=== PATIENT | female | born 1940 | race Caucasian/White ===

== ENCOUNTER 2021-09-16 15:24 | Inpatient (IN) | payer MEDICARE, OTHER ==
--- OUTSIDE RECORDS SUMMARY | 2021-09-16 15:27 | XMS REPORT | Continuity of Care Document ---
:1940 Author Organization [facility] t Address [address] [place] [address] Care Team Providers Name Role Phone UNKNOWN Primary Care Physician Unavailable FERNANDEZ_Kim Attending Clinician Unavailable Wendy Presley Attending Clinician [phone] Sosa Attending Clinician Unavailable Francoise Attending Clinician Unavailable Pedro Attending Clinician Unavailable MANAS Attending Clinician Unavailable ALEX Attending Clinician Unavailable FERNANDEZ_Kim Admitting Clinician Unavailable Nelson_Cassie Admitting Clinician Unavailable Francoise Admitting Clinician Unavailable Katrin_Felicity Admitting Clinician Unavailable MANAS Admitting Clinician Unavailable Payers Payer Name Policy Type Policy Number Effective Date Expiration Date Adele moore [facility] - [id number] [employer] (MEDICARE REPLACEMENT/ADVANTAGE - PPO) [facility] [id number] (MEDICARE REPLACEMENT/ADVANTAGE - PPO) [employer] (MEDICARE [id number] REPLACEMENT/ADVANTAGE - PPO) Problems Condition Condition Condition Status Onset Resolution Last Treating Co mments Source Name Details Category Date Date Treatment Clinician Date Essential Essential Problem Active [facility] hypertensi Hypertensi 4-05 da on on 00:00: Medical 00 Group Congestive Congestive Problem Active [facility] heart Heart 4-05 da failure Failure 00:00: Medical Group Arthralgia Arthralgia Problem Active [facility] of the of the 08-20 da ankle Ankle 00:00: Medical and/or And/or 00 Group foot Foot Ankle pain Ankle Pain Problem Active [facility] 2-26 da 00:00: Medical 00 Group Long-term Long-term Problem Active 2016-05 [facility] drug Drug 2-12 da therapy Therapy 00:00: Medical 00 Group Screening Screening Problem Active [facility] for for 1-30 da malignant Malignant 00:00: Medi carmen neoplasm Neoplasm 00 Group of breast of Breast Dermatophy Dermatophy Problem Active [facility] tosis tosis [facility] Hypothyroi Hypothyroi Problem Active [facility] dism dism [facility] Hyperlipid Hyperlipid Problem Active [facility] emia emia [facility] Cellulitis Cellulitis Problem Active [facility] of of da external External Medica l ear Ear Group Sinus Sinus Problem Active [facility] tachycardi Tachycardi da a a Medical Group 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 Medical Group Gastroesop Gastroesop Problem Active [facility] hageal hageal da reflux Reflux Medical disease Disease Group Infection Infection Problem Active [facility] of skin of Skin da and/or And/or Medical subcutaneo Subcutaneo Gr oup us tissue us Tissue Ankle Ankle Problem Active [facility] edema [facility]ema [facility] Foot pain Foot Pain Problem Active [facility] Numbness Numbness Problem Active [facility] of foot of Foot [facility] Eruption Eruption Problem Active [facility] Diarrhea Diarrhea Problem Active [facility] Macrocytos Macrocytos Problem Active [facility] is is [facility] Mammograph Mammograph Problem Active [facility] y abnormal y Abnormal [facility] Abnormal Abnormal Problem Active [facility] cervical Cervical da Papanicola Papanicola Me dical ou smear ou Smear Group Arthralgia Arthralgia Problem Active [facility] of right of right ity of ankle ankle [place] [facility] Right Right Problem Active [facility] ankle ankle ity of swelling swelling [place] [facility] Closed Closed Problem Active [facility] Salter-Rick Salter-Rick it y of ris type I ris type I [place] [facility] fracture fracture ans of 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, nonunion, subsequent subsequent encounter encounter Allergies, Adverse Reactions, Alerts Allergy Allergy Status Severity Reaction(s) Onset Inactive Treating Comm ents Source Name Type Date Date Clinician Sulfa DA Active [facility] (Sulfona 1-28 [place] [facility] 00:00: Orthope Antibiot 00 dic ics) [facility]osp[facility] Sulfa DA Active [facility] (Sulfona 1-23 [place] [facility] 00:00: Orthope Antibiot 00 dic ics) [facility]ospita [facility] Sulfa DA Active [facility] (Sulfona 6-07 [place] [facility] 00:00: Orthope Antibiot 00 dic ics) Hospita l SULFA Allergy Active Moderate Rash [facility] (SULFONA to to severe da MIDE substan Medical ANTIBIOT e Group ICS) Social History Smoking Status Start Date Stop Date Source Never Smoker [facility] Medications Ordered Filled Start Stop Current Ordering Indication Dosage Frequency Signature Comments Components Source Medication Medication Date Date Medication? Clinician (SIG) Name Name allopurinol allopurinol No allopurino [facility] 300 mg 300 mg l 300 mg da tablet TAKE tablet TAKE tablet Medical 1 TABLET BY 1 TABLET BY TAKE 1 Group MOUTH ONCE MOUTH ONCE TABLET BY DAILY DAILY MOUTH ONCE DAILY aspirin 80 aspirin 80 No aspirin 80 [facility] mg tablet mg tablet mg tablet da Take by Take by Take by Medica l oral route. oral route. oral G roup route. atorvastati atorvastati No atorvastat [facility] n 40 mg n 40 mg in 40 mg da tablet TAKE tablet TAKE tablet Medical 1 TABLET BY 1 TABLET BY TAKE 1 Group MOUTH EVERY MOUTH EVERY TABLET BY DAY DAY MOUTH EVERY DAY diclofenac diclofenac No diclofenac [facility] 1 % topical 1 % topical 1 % d a gel APPLY gel APPLY topical Me dical 4GRAM TO 4GRAM TO gel APPLY Gr oup THE THE 4GRAM TO AFFECTED AFFECTED THE AREA(ankle AREA(ankle AFFECTED and foot and foot AREA(ankle )BY TOPICAL )BY TOPICAL and foot ROUTE 4 ROUTE 4 )BY TIMES PER TIMES PER TOPICAL DAY DAY ROUTE 4 TIMES PER DAY famotidine famotidine No famotidine [facility] 20 mg 20 mg 20 mg da tablet TAKE tablet TAKE tablet Medical 1 TABLET BY 1 TABLET BY TAKE 1 Group MOUTH TWICE MOUTH TWICE TABLET BY DAILY DAILY MOUTH TWICE DAILY hydrochloro hydrochloro No hydrochlor [facility] thiazide 25 thiazide 25 othiazide da mg tablet mg tablet 25 mg Medi carmen tablet Group levothyroxi levothyroxi No levothyrox [facility] ne 75 mcg ne 75 mcg ine 75 mcg da tablet TAKE tablet TAKE tablet Medical 1 TABLET BY 1 TABLET BY TAKE 1 Group MOUTH EVERY MOUTH EVERY TABLET BY DAY DAY MOUTH EVERY DAY losartan losartan No losartan [facility] 100 mg 100 mg 100 mg da tablet tablet tablet Medical Group meclizine meclizine No meclizine [facility] 25 mg 25 mg 25 mg da tablet tablet tablet Medical Group nebivolol nebivolol No nebivolol [facility] 10 mg 10 mg 10 mg da tablet tablet tablet Medical Group olmesartan olmesartan No olmesartan [facility] 20 mg 20 mg 20 mg da tablet tablet tablet Medical Group tramadol 50 tramadol 50 No tramadol [facility] mg tablet mg tablet 50 mg da Take 1-2 Take 1-2 tablet Medic al tabs every tabs every Take 1-2 Group 6 hoursprn 6 hoursprn tabs every for pain for pain 6 hoursprn for pain Xarelto 20 Xarelto 20 No Xarelto 20 [facility] mg tablet mg tablet mg tablet da Medical Group Immunizations Ordered Immunization Filled Immunization Date Status Commen ts Source Name Name Tdap Tdap 2016-11-10 Completed Sina 15:45:11 Medical Group Vital Signs Vital Name Observation Time Observation Value Comments Source BP Diastolic 2021-02-28 00:00:00 75 mm[Hg] [facility] Height 2021-02-28 00:00:00 63 [in_i] [facility] BMI (Body Mass 2021-02-28 00:00:00 30.8 kg/m2 [facility] Index) Group BP Systolic 2021-02-28 00:00:00 163 mm[Hg] [facility] Body Weight 2021-02-28 00:00:00 173.6 [lb_av] [facility] BP Diastolic 2021-01-23 00:00:00 77 mm[Hg] [facility] Height 2021-01-23 00:00:00 63 [in_i] [facility] BMI (Body Mass 2021-01-23 00:00:00 30.8 kg/m2 [facility] Index) Group BP Systolic 2021-01-23 00:00:00 169 mm[Hg] [facility] Body Weight 2021-01-23 00:00:00 173.9 [lb_av] [facility] BP Diastolic 2019-12-16 00:00:00 71 mm[Hg] [facility] Height 2019-12-16 00:00:00 63 [in_i] [facility] BP Systolic 2019-12-16 00:00:00 154 mm[Hg] [facility] BP Diastolic 2019-12-15 00:00:00 70 mm[Hg] [facility] Height 2019-12-15 00:00:00 63 [in_i] [facility] BMI (Body Mass 2019-12-15 00:00:00 30.8 kg/m2 [facility] Index) Group BP Systolic 2019-12-15 00:00:00 145 mm[Hg] [facility] Body Weight 2019-12-15 00:00:00 2784 [oz_av] [facility] Procedures Procedure Date / Time Performed Performing Clinician Sourc e XR, elbow, 2 view 2019-12-16 00:00:00 [facility] Cataract [facility] Cholecystectomy [facility] Encounters Start End Encounter Admission Attending Care Care Encounter Source Date/Time Date/Time Type Type Clinicians Facility Department ID 2021-08-28 2021-08-28 Outpatient KEFFER_A [facility] [id number] [place] 01:08:00 01:08:00 [facility] 2021-08-28 2021-08-28 Outpatient Silvia Presley [facility] [id number] 00:00:00 00:00:00 Wendy [id number] 2021-07-29 2021-07-29 Outpatient [facility] [id number] [place] 04:29:00 04:29:00 314 [facility] 2021-07-29 2021-07-29 Outpatient Silvia Presley [facility] [id number] 00:00:00 00:00:00 Wendy [id number] 2021-05-30 2021-05-30 Outpatient [facility]A [facility] [id number] [place] 04:25:00 04:25:00 113 [facility] 2021-05-30 2021-05-30 Outpatient Silvia Presley [facility] [id number] 00:00:00 00:00:00 Wendy [id number] 2021-05-15 2021-05-15 Outpatient [facility]A [facility] [id number] [place] 12:01:00 12:01:00 229 [facility] 2021-05-15 2021-05-15 Outpatient Silvia Presley [facility] [id number] 00:00:00 00:00:00 Wendy [id number] 2021-04-18 2021-04-18 Outpatient [facility]A [facility] [id number] [place] 11:21:00 11:21:00 202 [facility] 2021-04-17 2021-04-17 Outpatient KEDL_Kim [facility] [id number] [place] 03:55:00 03:55:00 201 [facility] 2021-04-17 2021-04-17 Outpatient FernandezSilvia [facility] [id number] 00:00:00 00:00:00 Wendy [id number] 2021-02-28 2021-02-28 [facility] [id number] [facility] 11:56:00 11:56:00 1014 [facility] 2021-02-28 2021-02-28 RHEA Gunn [place] - [id number] [facility] 00:00:00 00:00:00 : Barb [facility] [address], [facility], Otolaryngol [place]gy-2NDNATURE [address] , Ph. 2021-02-27 2021-02-27 [facility] [id number] [place] 12:31:00 12:31:00 1013 [facility] 2021-02-21 2021-02-21 [facility] [id number] [place] 02:15:00 02:15:00 1007 [facility] 2021-01-23 2021-01-23 [place] [id number] [place] 03:45:00 03:45:00 0908 [facility] 2021-01-23 2021-01-23 [facility] [id number] [place] 03:45:00 03:45:00 0909 [facility] 2021-01-23 2021-01-23 RHEA Gunn [place] - [id number] [facility] 00:00:00 00:00:00 : Barb [facility] [address], [facility], [place] [address] , Ph. 2020-12-26 2020-12-26 [facility] [id number] [place] 10:19:00 10:19:00 0811 [facility] 2020-12-26 2020-12-26 [place] Yan[place] [id number] [facility] 10:19:00 10:19:00 0820 [facility] 2020-12-26 2020-12-26 Outpatient Yan_W MMG MMG [id number] [place] 10:19:00 10:19:00 0907 [facility] 2020-12-24 2020-12-24 Outpatient KEDL_Kim [facility] [id number] [place] 05:10:00 05:10:00 809 [facility] 2020-12-24 2020-12-24 Outpatient Silvia Presley [facility] [id number] 00:00:00 00:00:00 Wendy [id number] 2020-06-21 2020-06-21 Outpatient RUY [facility] [id number] [place] 12:56:00 12:56:00 204 [facility] 2020-06-21 2020-06-21 Outpatient Silvia Presley [facility] [id number] 00:00:00 00:00:00 Wendy [id number] 2020-04-04 2020-04-04 Outpatient Francoise [facility] [id number] [place] 02:20:00 02:20:00 [facility]8 [facility] 2020-01-12 2020-01-12 Outpatient Francoise [facility] [id number] [facility] 10:10:00 10:10:00 0827 [facility] 2019-12-31 2019-12-31 Outpatient Hawkins_M [facility] 10:51:00 10:51:00 0815 [facility] 2019-12-24 2019-12-24 Outpatient Hawkins_M [facility] MMG [place] 11:56:00 11:56:00 [id number] [facility] 2019-12-24 2019-12-24 Outpatient Hawkins_M [facility]G [place] 11:56:00 11:56:00 0810 [facility] 2019-12-24 2019-12-24 Outpatient Hawkins_M [facility] [place] 11:56:00 11:56:00 0811 [facility] 2019-12-24 2019-12-24 Outpatient Hawkins_M [facility] [place] 11:56:00 11:56:00 0812 Medical Group 2019-12-24 2019-12-24 Outpatient Hawkins_M [facility] [place] 11:56:00 11:56:00 0813 Medical Group 2019-12-20 2019-12-20 Outpatient Hawkins_M [facility] [place] 11:20:00 11:20:00 0804 Medical Group 2019-12-20 2019-12-20 Outpatient Hawkins_M [facility] [place] 11:20:00 11:20:00 0805 Medical Group 2019-12-19 2019-12-19 Outpatient Hawkins_M [facility] [place] 04:30:00 04:30:00 0803 [facility] Group 2019-12-16 2019-12-16 Outpatient Hawkins_M [facility] [place] 04:17:00 04:17:00 0731 Medical Group 2019-12-16 2019-12-16 Outpatient Hawkins_M [facility] [place] 04:17:00 04:17:00 0802 Medical Group 2019-12-16 2019-12-16 [place] [facility] [place] - [id number] [facility] 00:00:00 00:00:00 Alyx nevarez [place], Medical Medical PLASTIC SURGEON: [address] [address] , Ph. 2019-12-15 2019-12-15 Outpatient Hawkins_M [facility] [place] 12:53:00 12:53:00 0730 Medical Group 2019-12-15 2019-12-15 [facility] [place] - [id number] [facility] 00:00:00 00:00:00 Alyx Trujillo, Medical Medical PLASTIC SURGEON: [address] [address], [place] [address] , Ph. 2017-04-03 2017-04-03 [id number] 19:53:00 19:53:00 [facility] 2017-03-04 2017-03-04 Appointmen ALBERT JOHNSON UTP [id number] Univers 13:30:00 13:30:00 jordyn Martinez M.D. [place] WILLIAM, Physici M.D. ans Results Test Description Test Time Test Comments Results Result Comments Source CBC W Auto Differential panel - Blood 2019-12-16 04:34:00 Test Item Value Reference Range Interpretation Comme nts white blood count (test code = white blood count) 7.0 K/uL 4.0- 11.5 red blood count (test code = red blood count) 4.03 M/uL 3.80-5.2 0 hemoglobin (test code = hemoglobin) 13.5 g/dL 10.5-15.7 hematocrit (test code = hematocrit) 40.8 % 34.0-50.0 MCV [Entitic volume] (test code = 67498-4) 101.2 fL 86-100 H mean corpuscular hemoglobin (test code = mean corpuscular 33.5 pg 26.2-33.4 H hemoglobin) mean corpuscular HGB conc (test code = mean corpuscular HGB 33.1 g/ dL 30-34 conc) red cell distribution width (test code = red cell 13.5 % 12.0 -15.5 distribution width) platelet count (test code = platelet count) 186 K/uL 165-450 mean platelet volume (test code = mean platelet volume) 9.5 fL 9.4-12.6 Segmented neutrophils/100 leukocytes in Blood (test code = 57.0 % 44.4-80.1 87153-6) Immature granulocytes [#/volume] in Blood (test code = 0.0 K/uL 0.0-0.03 63278-6) lymphocyte% (test code = lymphocyte%) 31.8 % 10.0-50.0 mono % (test code = mono %) 7.6 % 3.6-12.0 eos % (test code = eos %) 2.7 % 0.0-5.4 Basophils/100 leukocytes in Unspecified specimen (test code 0.6 % 0.1-1.2 = 50649-7) Band form neutrophils [#/volume] in Blood (test code = 3.98 K/uL 1.56-6.13 77961-8) Lymphocytes [#/volume] in Unspecified specimen by Automated 2.2 K/u L 1.18-3.74 count (test code = 27468-2) mono # (test code = mono #) 0.53 K/uL 0.24-0.86 eos # (test code = eos #) 0.19 K/uL 0.04-0.36 basophil # (test code = basophil #) 0.04 K/uL 0.01-0.08 NRBC% (test code = NRBC%) 0 /100 WBC 0-0.2 NRBC# (test code = NRBC#) 0 K/uL [facility] panel, method unspecified - [id number] 04:34:00NeutrophilsBandLymphocyteMonocyteEosinophilPlatelet EstimatePlatelet MorphologyUmmc GrenadaBacteria identified in Wound by Culture 2019-12-16 04:34:00ResultsUmmc Grenada- CT LOWER EXTRM W/O C RT 2018-12-09 11:36:00 Patient Name: PATTI SHAW Unit No: [id number] EXAMS: CPT CODE: [id number] CT L[place]TRM W/[place] [address] TECHNIQUE: Volumetric CT data of the right ankle was obtained without use of intravenous contrast. Images were then viewed in the axial, coronal and sagittal planes. CT radiation dose optimization is achieved for this examination by the use of a CT protocol in accordance with ACR practice standards and adherence to apple peeler operator's recommendations. INDICATION: PAIN COMPARISON: CT dated 09/29/2017 FINDINGS: Interval postoperative changes of tibiotalar talocalcaneal arthrodesis demonstrated. There is marked collapse and partial absence of the talus. The vertical stem demonstrates treatprosthetic lucency measuring up to 3.5 mm (coronal image 137), concerning for loosening.The screws appear intact. No osseous fusion is visualized. Distal fibular resection. No other significant interval change. IMPRESSION: Interval postoperative changes of TTC arthrodesis without fusion. There is evidence of hardware loosening. at 1136 Reported and signed by: Kory De Leon M.D. CC: Zhao Cortes MD Technologist: Donald Melendez,RT(R) CTDI: DLP: Trnscrpt: 12/09/2018 (1131) t.SDR.SLJ [facility] NAME: PATTI SHAW [address] [facility] PHYS: MALI Ordaz Zhao Cortes : 1940 AGE: 78 SEX: F [place] [address] LOC: Y.RAD PHONE #: [phone] EXAM DATE: 12/08/2018 STATUS: DEP CLI FAX #: [phone] RAD #: D/C DT PAGE 1 Signed Report Patient Name: PATTI SHAW Unit No: [id number] EXAMS: CPT CODE: [id number] CT LOWER EXTRM W/[place] [address] <Continued> Orig Print D/T: S: 12/09/2018 (1135) [facility] NAME: PATTI SHAW [address] [facility] PHYS: Zhao Gerard : 1940 AGE: 78 SEX: F [place] [address] LOC: Y.RAD PHONE #: [phone] EXAM DATE: 12/08/2018 STATUS: DEP CLI FAX #: [phone] RAD #: D/C DT PAGE 2 Signed ReportLipid [id number] 21:20:00 Test Item Value Reference Range Interpretation Comments Cholesterol (test 114 mg/dL 0-200 N code = CHOL) Triglycerides (test 110 mg/dL 9-200 N code = TRIG) HDL (test code = 43 mg/dL 50-60 L HDL) Chol/HDL (test code 2.7 Ratio 0.0-4.4 N = CHOLPHDL) LDL, Calculated 49 mg/dL 0-130 N (NOTE)RISK O F HEART (test code = LDLC) DISEASEPu blished by [place] Heart AssociationAnal yte Optim al Boderline Increased RiskC HOL <200 200-239 >240TRI G <150 150-199 >200HDL Male: >60 <40HDL Female: >60 <50 LDL < 100 130-15 9 >160 LDL NEAR OPTIMAL IS 100- 129 VLDL (test code = 22 mg/dL 5-40 N VLDL) LDL/HDL (test code = 1 LDLPHDL) D-Dimer, [id number] 21:29:00 Test Item Value Reference Range Interpretation Comments D-Dimer, Quant (test code = DDQNT) 1426 ng/mL 0-500 H [id number] 21:35:00 Test Item Value Reference Range Interpretation Comments NT ProBnp (test code = PBNP) 277 pg/mL 0-124 H
[2021-09-16] MEDS ORDERED: NA CHLORIDE 0.9% 500 ML ONE (17:33)
[2021-09-16] MEDS ORDERED: METOPROLOL TAR 25 MG TAB ONE (17:33)
[2021-09-16 17:36] LABS: Absolute Lymphocytes (CBC) 1.3 K/uL (0.7-4.9); Hematocrit 26.4 % (36.0-45.0); Lymphocytes % 22.7 % (15.3-44.8); MPV 8.3 fL (7.6-11.3)
[2021-09-16 17:41] LABS: Protime INR 1.28
[2021-09-16] MEDS ORDERED: PANTOPRAZOLE 40 MG INJ ONE (17:48)
[2021-09-16 18:04] LABS: Albumin 3.7 g/dL (3.4-5.0); Bilirubin Direct 0.1 mg/dL (0-0.2); Bilirubin Total 0.2 mg/dL (0.2-1.0); Magnesium 2.1 mg/dL (1.8-2.4); Potassium 4.1 mmol/L (3.5-5.1); Protein, Total 6.7 g/dL (6.4-8.2); Troponin High Sensitivity 13.8 pg/mL (<58.9)
--- NOTE | 2021-09-16 18:59 | RAD REPORT ---
EXAM DESCRIPTION: CT - Abdomen Pelvis W Contrast - 09/16/2021 6:26 pm CLINICAL HISTORY: Abdominal pain, acute, nonlocalized, history of IBS COMPARISON: No comparisons TECHNIQUE: Biphasic, helical CT imaging of the abdomen and pelvis was performed following 100 ml non -ionic IV contrast. No oral contrast administered. All CT scans are performed using dose optimization technique as appropriate and may include automated exposure control or mA/KV adjustment according to patient size. FINDINGS: No suspicious findings in the lung bases. The liver, spleen, and pancreas show no suspicious findings. Gallbladder and biliary tree are also wi thout suspicious finding. Symmetric renal function is seen with no hydronephrosis or suspicious renal mass. No pyelonephritis o r acute parenchymal process. No bladder abnormalities. No adrenal abnormalities. Uterus and ovaries s how no suspicious findings. No gastric dilatation or gastric wall thickening identified. Enhancement of the gastric howell is seen which could indicate a gastritis. No dilated large or small bowel. Descending and sigmoid diverticul osis present without diverticulitis. No colon mass or acute colon finding identifiable. No direct or indirect evidence for appendicitis. No free air, free fluid or inflammatory stranding. No hernia, ma ss or bulky lymphadenopathy. Degenerative disc and bone changes are present with no acute finding. IMPRESSION: Enhancement of the gastric howell present without dilatation or focal mass. Gastritis is possible and needs correlation with clinical presentation. Diverticulosis present without diverticulitis. No acute colon finding seen.
--- NOTE | 2021-09-16 19:04 | ER ---
Nurse's Notes [facility] Name: Cynthia Eric Age: 81 yrs Sex: Female : 1940 Arrival Date: 09/16/2021 Time: 15:27 Bed 4 Private MD: Diagnosis: GI Bleed/ Gastrointestinal hemorrhage, unspecified;Unspecified atrial fibrillation Presentation: 09/16 16:08 Chief complaint: Patient states: for the past 3 days has noticed bloody stools "but vg1 only in the morning" states stool is soft and black in color; denies ABD pain at this time but pain does occur during BM. Pt states has pictures of BM and sister of colon cancer at the age 35. Coronavirus screen: Vaccine status: Patient reports receiving the 2nd dose of the covid vaccine. Client denies travel out of the [place] in the last 14 days. Ebola Screen: Patient denies exposure to infectious person. Patient denies travel to an Ebola-affected area in the 21 days before illness onset. Initial Sepsis Screen: Does the patient meet any 2 criteria? No. Patient's initial sepsis screen is negative. Does the patient have a suspected source of infection? No. Patient's initial sepsis screen is negative. Risk Assessment: Do you want to hurt yourself or someone else? Patient reports no desire to harm self or others. Onset of symptoms was September 14, 2021. 16:08 Method Of Arrival: Wheelchair vg1 16:08 Acuity: HONEY 3 vg1 Triage Assessment: 16:11 General: Appears comfortable, Behavior is calm, cooperative. Pain: Denies pain. GI: vg1 Reports bloody stool. Historical: - Allergies: 16:11 Sulfa (Sulfonamide Antibiotics); vg1 - Home Meds: 16:23 Xarelto oral [Active]; Bystolic oral [Active]; losartan oral [Active]; jh6 Hydrochlorothiazide Oral [Active]; levothyroxine oral [Active]; Allopurinol Oral [Active]; - PMHx: 16:11 IBS; Hypothyroidism; Hypertensive disorder; Rheumatoid arthritis; vg1 - PSHx: 16:11 MATEO Knee; Stented artery; Cholecystectomy; vg1 - Immunization history:: Client reports receiving the 2nd dose of the Covid vaccine. - Social history:: Smoking status: Patient denies any tobacco usage or history of. Screenin:34 Abuse screen: Denies threats or abuse. Denies injuries from another. Nutritional jl7 screening: No deficits noted. Tuberculosis screening: No symptoms or risk factors identified. Fall Risk IV access (20 points). Total Schulz Fall Scale indicates No Risk (0-24 pts). Assessment: 17:00 General: Appears in no apparent distress. uncomfortable, Behavior is calm, cooperative, jl7 appropriate for age. Pain: Denies pain. Neuro: Chavez Agitation-Sedation Scale (RASS): 0 - Alert and Calm Level of Consciousness is awake, alert, obeys commands, Oriented to person, place, time, situation, Reports dizziness. Cardiovascular: Denies chest pain, palpitations, Patient's skin is warm and dry. Rhythm is atrial fibrillation with rapid ventricular response. Respiratory: Airway is patent Respiratory effort is even, unlabored, Respiratory pattern is regular, symmetrical. GI: Abdomen is round non-distended, Reports bloody stool. Derm: Skin is pink, warm \\T\\ dry. 17:30 Reassessment: ERP gave VO to hold metoprolol, reports pt stated taking her Bystolic jl7 this morning around 1000. 18:50 Reassessment: ERP gave VO to administer metoprolol as ordered. jl7 19:55 Reassessment: Patient appears in no apparent distress at this time. Patient and/or as6 family updated on plan of care and expected duration. Pain level reassessed. Vital Signs: 16:08 BP 103 / 78; Pulse 88; Resp 16; Temp 97.7; Pulse Ox 100% ; Weight 75.3 kg; Height 5 ft. vg1 2 in. (157.48 cm); Pain 0/10; 17:34 BP 103 / 59; Pulse 131; Resp 15; Pulse Ox 100% ; jl7 18:00 BP 118 / 83; Pulse 130; Resp 16; Pulse Ox 100% on R/A; jl7 18:51 BP 118 / 80; Pulse 142; Resp 17; Pulse Ox 100% ; jl7 19:55 BP 103 / 83; Pulse 131; Resp 24 S; Pulse Ox 100% on R/A; as6 16:08 Body Mass Index 30.36 (75.30 kg, 157.48 cm) vg1 ED Course: 15:27 Patient arrived in ED. ds1 15:33 Raphael Cook PA is PHCP. [facility] 15:33 David Portillo MD is Attending Physician. jmm 16:11 Triage completed. vg1 16:11 Arm band placed on. vg1 16:13 Patient has correct armband on for positive identification. Bed in low position. Call [facility] light in reach. Adult w/ patient. Pulse ox on. NIBP on. 16:14 Basic Metabolic Panel Sent. 5 16:14 CBC with Diff Sent. 5 16:14 LFT's Sent. 5 16:14 Magnesium Sent. 5 16:14 NT PRO-BNP Sent. 5 16:14 PT-INR Sent. 5 16:14 Troponin HS Sent. 5 16:14 Warm blanket given. 5 16:27 Nya Browne, RN is Primary Nurse. [facility] 17:15 Initial lab(s) drawn, by hi, sent to lab. Inserted saline lock: 20 gauge in right jl7 forearm, using aseptic technique. Blood collected. 17:20 EKG done, by ED staff, reviewed by David Portillo MD. [facility] 17:20 Placed in gown. [facility] 17:30 Served as a guitar technician during rectal exam. jl7 18:28 CT Abd/Pelvis - IV Contrast Only In Process Unspecified. EDMS 19:03 Ruben Sauer MD is Hospitalizing Provider. [facility] 19:38 Primary Nurse role handed off by Nya Browne, RN ld1 19:55 Zak Erickson, JAMES is Primary Nurse. as6 22:28 Patient admitted, IV remains in place. as6 Administered Medications: 17:32 Drug: NS 0.9% 500 ml Route: IV; Rate: bolus; Site: right forearm; jl7 22:27 Follow up: Response: No adverse reaction; IV Status: Completed infusion; IV Intake: as6 500ml 17:45 Drug: ProTONIX (pantoprazole) 40 mg Route: IVP; Site: right forearm; jl7 22:27 Follow up: Response: No adverse reaction as6 18:54 Drug: Metoprolol 25 mg Route: PO; jl7 22:27 Follow up: Response: No adverse reaction as6 Intake: 22:27 IV: 500ml; Total: 500ml. as6 Outcome: 19:04 Decision to Hospitalize by Provider. jmm 22:28 Admitted to Med/surg accompanied by tech, family with patient, via wheelchair, room as6 202, with chart, Report called to Latanya RAMIREZ 22:28 Condition: stable 22:28 Instructed on the need for admit. 22:28 Patient left the ED. as6 Signatures: Dispatcher [employer] EDMS Raphael Cook PA PA jmm Sanford, Demi ds1 Loree Terry [facility] Jose Luis Caraballo, RN RN jl7 Malaika Calles RN RN 1 Malinda Stroud RN RN ld1 Zak Erickson RN RN as6 Nya Browne RN RN jh6 Corrections: (The following items were deleted from the chart) 17:35 16:12 Inserted saline lock: 22 gauge in left antecubital area, using aseptic technique. 7 Blood collected. [facility] 17:35 16:12 Initial lab(s) drawn, by me, sent to lab. [facility]
--- NOTE | 2021-09-16 19:04 | EDPHYS ---
Physician Documentation [facility] [place], [place] Name: Cynthia Eric Age: 81 yrs Sex: Female : 1940 Arrival Date: 09/16/2021 Time: 15:27 Bed 4 Private MD: ED Physician David Portillo HPI: 09/16 15:54 This 81 yrs old Female presents to ER via Wheelchair with complaints of Bloody Stools, jmm Dizziness. 15:54 The patient presents to the emergency department with rectal bleeding. Onset: The jmm symptoms/episode began/occurred gradually, 2 day(s) ago. Abdominal pain: described as achy. Modifying factors: The symptoms are alleviated by nothing, the symptoms are aggravated by nothing. Associated signs and symptoms:. This is a 81 year old female with a history of htn, hypothyroidism, cad that presents to the ED with complaints of abdominal pain and rectal bleeding worsening over the past 2 days. Patient states this has occurred intermittently but has worsened recently. Complains of weakness, and lightheartedness. . Historical: - Allergies: 16:11 Sulfa (Sulfonamide Antibiotics); vg1 - Home Meds: 16:23 Xarelto oral [Active]; Bystolic oral [Active]; losartan oral [Active]; jh6 Hydrochlorothiazide Oral [Active]; levothyroxine oral [Active]; Allopurinol Oral [Active]; - PMHx: 16:11 IBS; Hypothyroidism; Hypertensive disorder; Rheumatoid arthritis; vg1 - PSHx: 16:11 MATEO Knee; Stented artery; Cholecystectomy; vg1 - Immunization history:: Client reports receiving the 2nd dose of the Covid vaccine. - Social history:: Smoking status: Patient denies any tobacco usage or history of. ROS: 15:54 Constitutional: Positive for fatigue. jmm 15:54 Abdomen/GI: Positive for abdominal pain, rectal bleeding. 15:54 All other systems are negative. Exam: 15:54 Constitutional: This is a well developed, well nourished patient who is awake, alert, jmm and in no acute distress. Head/Face: atraumatic. Eyes: EOMI, no conjunctival erythema appreciated ENT: Moist Mucus Membranes Neck: Trachea midline, Supple Chest/axilla: Normal chest wall appearance and motion. Cardiovascular: Regular rate and rhythm. No edema appreciated Respiratory: Normal respirations, no respiratory distress appreciated Abdomen/GI: Non distended, soft Back: Normal ROM Skin: General appearance color normal MS/ Extremity: Moves all extremities, no obvious deformities appreciated, no edema noted to the lower extremities Neuro: Awake and alert Psych: Behavior is normal, Mood is normal, Patient is cooperative and pleasant Vital Signs: 16:08 BP 103 / 78; Pulse 88; Resp 16; Temp 97.7; Pulse Ox 100% ; Weight 75.3 kg; Height 5 ft. vg1 2 in. (157.48 cm); Pain 0/10; 17:34 BP 103 / 59; Pulse 131; Resp 15; Pulse Ox 100% ; jl7 18:00 BP 118 / 83; Pulse 130; Resp 16; Pulse Ox 100% on R/A; jl7 18:51 BP 118 / 80; Pulse 142; Resp 17; Pulse Ox 100% ; jl7 19:55 BP 103 / 83; Pulse 131; Resp 24 S; Pulse Ox 100% on R/A; as6 16:08 Body Mass Index 30.36 (75.30 kg, 157.48 cm) vg1 MDM: 16:12 Patient medically screened. [facility] 18:57 Data reviewed: vital signs, nurses notes. Counseling: I had a detailed discussion with dwayne the patient and/or guardian regarding: the historical points, exam findings, and any diagnostic results supporting the discharge/admit diagnosis, lab results, the need for further work-up and treatment in the hospital. ED course: I discussed the patient with Dr. lCark whom evaluated the patient at bedside. Will consult on admission. Does not recommend PRB infusion at this time. I discussed the patient with Mrs Muse whom accepted the patient to Dr. Castelan service. . 09/16 15:54 Order name: Basic Metabolic Panel; Complete Time: 18:07 [facility] 09/16 15:54 Order name: CBC with Diff; Complete Time: 17:41 [facility] 09/16 15:54 Order name: LFT's; Complete Time: 18:07 [facility] 09/16 15:54 Order name: Magnesium; Complete Time: 18:07 [facility] 09/16 15:54 Order name: NT PRO-BNP; Complete Time: 18:07 [facility] 09/16 15:54 Order name: PT-INR; Complete Time: 17:41 [facility] 09/16 15:54 Order name: Troponin HS; Complete Time: 18:07 [facility] 09/16 15:54 Order name: Type And Screen; Complete Time: 18:22 [facility] 09/16 15:55 Order name: CT Abd/Pelvis - IV Contrast Only; Complete Time: 19:00 [facility] 09/16 17:38 Order name: Occult Blood--Ancillary; Complete Time: 18:02 09/16 18:01 Order name: SARS-COV-2 RT PCR (Document "Date of Onset" if Symptomatic); Complete Time: [facility] 21:23 09/16 18:58 Order name: TSH; Complete Time: 19:30 [facility] 09/16 15:54 Order name: EKG; Complete Time: 15:55 [facility] 09/16 15:54 Order name: Cardiac monitoring; Complete Time: 16:13 [facility] 09/16 15:54 Order name: EKG - Nurse/Tech; Complete Time: 17:20 [facility] 09/16 15:54 Order name: IV Saline Lock; Complete Time: 16:13 [facility] 09/16 15:54 Order name: Labs collected and sent; Complete Time: 16:13 [facility] 09/16 15:54 Order name: O2 Per Protocol; Complete Time: 16:13 [facility] 09/16 15:54 Order name: O2 Sat Monitoring; Complete Time: 16:13 [facility] 09/16 16:38 Order name: Gown patient; Complete Time: 17:04 [facility] Administered Medications: 17:32 Drug: NS 0.9% 500 ml Route: IV; Rate: bolus; Site: right forearm; jl7 22:27 Follow up: Response: No adverse reaction; IV Status: Completed infusion; IV Intake: as6 500ml 17:45 Drug: ProTONIX (pantoprazole) 40 mg Route: IVP; Site: right forearm; jl7 22:27 Follow up: Response: No adverse reaction as6 18:54 Drug: Metoprolol 25 mg Route: PO; jl7 22:27 Follow up: Response: No adverse reaction as6 Disposition: 09/17 12:23 Co-signature as Attending Physician, David Portillo MD. rn Disposition Summary: 09/16/21 19:04 Hospitalization Ordered Hospitalization Status: Inpatient Admission [facility] Provider: Ruben Sauer Location: Telemetry/MedSur (Inpatient) jmm Condition: Stable jmm Problem: new jmm Symptoms: are unchanged jmm Bed/Room Type: Standard [facility] Room Assignment: 202(09/16/21 21:11) cg Diagnosis - GI Bleed/ Gastrointestinal hemorrhage, unspecified jmm - Unspecified atrial fibrillation jmm Forms: - Medication Reconciliation Form jmm - SBAR form jmm Signatures: Dispatcher [employer] EDRaphael Breen PA PA jmm David Portillo MD MD rn Garcia, Cindy RN RN Jose Luis Brizuela RN RN jl7 Malaika Calles RN RN vg1 Nya Browne RN RN jh6 Tami Muse PA PA sb3 Zak Erickson RN as6 Corrections: (The following items were deleted from the chart) 09/16 21:11 19:04 jmm cg
--- NOTE | 2021-09-16 19:46 | P.HP ---
Certification for Inpatient Patient admitted to: Inpatient With expected LOS: <2 Midnights Patient will require the following post-hospital care: None Practitioner: I am a practitioner with admitting privileges, knowledge of patient current condition, hospital course, and medical plan of care. Services: Services provided to patient in accordance with Admission requirements found in Title 42 Section 412.3 of the Code of Federal Regulations <Tami Muse - Last Filed: 09/16/21 22:21> Patient History Date of Service: 09/16/21 Reason for admission: LGIB History of Present Illness: Patient is a 81-year-old female with past medical history of CAD, afib on xarelto, hypothyroidism, hypertension who presented to the ED with complaints of blood in her stool and generalized weakness/fatigue. She states that she has been having blood in her stool for a few months now, but the past 3 days it has become more frequent and greater amounts of blood. She reports her stool is soft and black in color. She denies abdominal pain or any hematemesis. She also reports that she has had hair loss the past 3 months. She states that she has had several colonoscopies in the past that have been normal. She states that she has a sister that of colon cancer at age 35. Hemoccult positive. H&H 8.9/26.4, BNP 6966, creatinine 1.51, GFR 33 (baseline unknown). CT showed possible gastritis and diverticulosis without diverticulitis. No acute colon finding seen. She was given Protonix and metoprolol. Dr. Clark was consulted and wishes for patient to be admitted to hospitalist with him consulting for colonscopy. He does not recommend PRBCs at this time. Will admit patient for further evaluation and treatment. Home medications list reviewed: Yes - Past Medical/Surgical History -: CAD -: SD -: Hypothyroidism -: Hypertension -: Rheumatoid Arthritis -: Afib -: Bilateral Knee Replacements -: Stent x 2 (2012) -: Cholecystectomy Psychosocial/ Personal History: Patient lives at home alone. - Family History Sister -: Cancer (colon) - Social History Smoking Status: Never smoker Alcohol use: No CD- Drugs: No Caffeine use: Yes Place of Residence: Home <Tami Muse - Last Filed: 09/16/21 22:21> Date of Service: 09/16/21 <Ruben Sauer - Last Filed: 09/19/21 07:48> Allergies Sulfa (Sulfonamide Antibiotics) Allergy (Verified 09/16/21 21:41) Itching/Hives/Rash Review of Systems General: Weakness, As per HPI (hair loss ) Gastrointestinal: Melena <Tami Muse - Last Filed: 09/16/21 22:21> Physical Examination - Physical Exam General: Alert, In no apparent distress, Oriented x3 HEENT: Atraumatic, PERRLA, EOMI, Sclerae nonicteric Neck: Supple, 2+ carotid pulse no bruit, No LAD, Without JVD or thyroid abnormality Respiratory: Clear to auscultation bilaterally, Normal air movement Cardiovascular: No edema, Normal pulses, Irregular heart rate/rhythm (afib) Gastrointestinal: Normal bowel sounds, Soft and benign, Non-distended, No tenderness Musculoskeletal: No tenderness Integumentary: No rashes Neurological: Normal speech, Normal strength at 5/5 x4 extr, Normal tone, Normal affect - Studies Laboratory Data (last 24 hrs) 09/16/21 17:18: PT 14.1 H, INR 1.28 09/16/21 17:18: WBC 5.7, Hgb 8.9 L, Hct 26.4 L, Plt Count 205 09/16/21 17:18: Sodium 138, Potassium 4.1, BUN 30 H, Creatinine 1.51 H, Glucose 97, Magnesium 2.1, Total Bilirubin 0.2, AST 38 H, ALT 38, Alkaline Phosphatase 103 Microbiology Data (last 24 hrs): 09/16/21 17:38 Stool Occult Blood - Final <Tami Muse - Last Filed: 09/16/21 22:21> Assessment and Plan - Problems (Diagnosis) (1) Lower GI bleed Current Visit: Yes Status: Acute (2) Acute blood loss anemia Current Visit: Yes Status: Acute (3) Chronic atrial fibrillation with RVR Current Visit: Yes Status: Chronic (4) Hypothyroidism Current Visit: No Status: Chronic Qualifiers: Hypothyroidism type: acquired Qualified Code(s): E03.9 - Hypothyroidism, unspecified (5) CAD (coronary artery disease) Current Visit: Yes Status: Chronic Qualifiers: Coronary Disease-Associated Artery/Lesion type: unspecified vessel or lesion type [place] vs. transplanted heart: [place] heart Associated angina: without angina Qualified Code(s): I25.10 - Atherosclerotic heart disease of [place] coronary artery without angina pectoris (6) Hypertension Current Visit: No Status: Chronic Qualifiers: Hypertension type: primary hypertension Qualified Code(s): I10 - Essential (primary) hypertension (7) ANGIE (acute kidney injury) Current Visit: Yes Status: Acute - Plan -suspected LGIB given bloody stools and anemia (also on xarelto for afib). No hematemesis. CT negative. 40 mg protonix BID. -Eduardo consulted and seen patient. Plans for colonscopy. NPO at midnight. GI sock ironer if needed. -hgb 8.9 (baseline unknown). gen surgery does not recommend PRBC at this time. plan to transfuse if hgb < 7. Monitor CBC. -Patient has been in afib with HR > 130. given 25 metoprolol in the ER. will continue PRN. continue home medication for rate control when verified. cardiology consulted. -baseline renal status is unknown but patient denies any kidney problems. Cr 1.51 suggestive of ANGIE. Gentle IV hydration overnight. Hold nephrotoxic drugs. -SCDs for VTE ppx Discharge Plan: Home Plan to discharge in: 48 Hours - Advance Directives Does patient have a Living Will: Yes Does patient have a Durable POA for Healthcare: Yes - Code Status/Comfort Care Code Status Assessed: Yes (Full) Critical Care: No Time Spent Managing Pts Care (In Minutes): 70 <Tami Muse - Last Filed: 09/16/21 22:21> Date of Service: 09/16/21 Subjective: HPI as mentioned above Physical Examination: Vitals: Afebrile vital signs are stable Physical exam: Cardiovascular: Tachycardic Lungs: Within normal limits Abdomen: Within normal limits Neuro: Awake, alert, oriented to person place and time Assessment: 1. GI bleed 2. Atrial fibrillation with rapid ventricular response Plan: 1. Continue with current plan of care as mentioned above <Ruben Sauer - Last Filed: 09/19/21 07:48>
[2021-09-16] MEDS ORDERED: ONDANSETRON 4 MG/2 ML VIAL IV PRN (22:49)
[2021-09-16] MEDS ORDERED: ACETAMINOPHEN 500 MG TAB PO PRN (22:49)
[2021-09-16] MEDS ORDERED: SODIUM CHLORIDE 0.9% 10ML INJ IV PRN (22:49)
[2021-09-16] MEDS ORDERED: METOPROLOL TARTRATE 5 MG/5 ML INJ IV STA (22:52)
[2021-09-16] MEDS: NA CHLORIDE 0.9% 1,000 ML IV SCH (23:00)
[2021-09-16] MEDS: PANTOPRAZOLE 40 MG INJ IVP SCH (23:00)
[2021-09-17] MEDS ORDERED: dilTIAZem HCL 25 MG/5 ML VIAL IV ONE (01:05)
[2021-09-17 04:36] LABS: Lymphocytes % 23.8 % (15.3-44.8); MPV 8.3 fL (7.6-11.3); RBC Red Blood Cell Count 2.24 M/uL (3.86-4.86)
[2021-09-17 04:54] LABS: Phosphorus 3.2 mg/dL (2.5-4.9); Potassium 4.1 mmol/L (3.5-5.1)
[2021-09-17 05:09] LABS: Blood Morphology Comment NOTED (NOT SEEN); Macrocytosis 1+; Platelet Estimate ADEQ; Polychromasia 2+; White Blood Cell Scan OK (OK)
[2021-09-17] MEDS: PANTOPRAZOLE 40 MG INJ IVP SCH ×2 (08:20→21:20)
--- NOTE | 2021-09-17 10:51 | EKG ---
Test Date: 2021-09-16 Test Time: 17:12:25 Tree Doctor: TIFFANIE MEASUREMENT RESULTS: Intervals: Rate: 143 IA: QRSD: 76 QT: 326 QTc: 503 [place]: P: IA: QRS: 35 T: -3 INTERPRETIVE STATEMENTS: Atrial fibrillation with rapid ventricular response Cannot rule out Anterior infarct, age undetermined Abnormal ECG Compared to ECG 10/24/2002 13:03:00 Myocardial infarct finding now present Sinus bradycardia no longer present T-wave abnormality no longer present Electronically Signed On 09-17-21 10:50:09 CDT by Gera Rivera
--- NOTE | 2021-09-17 10:55 | ECHO ---
HEIGHT: 5 ft 2.5 in WEIGHT: 168 lb 0 oz DATE OF STUDY: 09/17/[address]: Gera Rivera MD 2-DIMENSIONAL: YES M.MODE: YES DOPPLER: YES COLOR FLOW: YES TDS: NO PORTABLE: YES DEFINITY: NO BUBBLE STUDY: NO DIAGNOSIS: ATRIAL FIBRILLATION CARDIAC HISTORY: CATHERIZATION: YES SURGERY: NO PROSTHETIC VALVE: NO PACEMAKER: NO MEASUREMENTS (cm) DIASTOLIC (NORMALS) SYSTOLIC (NORMALS) IVSd 1.0 (0.6-1.2) LA Diam 3.2 (1.9-4.0) LVEF 51% LVIDd 4.1 (3.5-5.7) LVIDs 3.1 (2.0-3.5) %FS 26% LVPWd 1.1 (0.6-1.2) Ao Diam 2.4 (2.0-3.7) 2 DIMENSIONAL ASSESSMENT: RIGHT ATRIUM: NORMAL LEFT ATRIUM: NORMAL RIGHT VENTRICLE: NORMAL LEFT VENTRICLE: NORMAL TRICUSPID VALVE: NORMAL MITRAL VALVE: NORMAL PULMONIC VALVE: NORMAL AORTIC VALVE: NORMAL PERICARDIAL EFFUSION: NONE AORTIC ROOT: NORMAL LEFT VENTRICULAR WALL MOTION: NORMAL. DOPPLER/COLOR FLOW: NORMAL. COMMENTS: ATRIAL FIBRILLATION. NORMAL LEFT VENTRICULAR SIZE AND FUNCTION. NO WALL MOTION ABNORMALITY. NO EFFUSION. TECHNOLOGIST: KEVEN BARRAGAN
[2021-09-17] MEDS: NA CHLORIDE 0.9% 1,000 ML IV SCH (11:48)
--- NOTE | 2021-09-17 12:52 | CON ---
Date of Consultation: 09/17/2021 Reason For Consultation: Lower GI bleed in the setting of atrial fibrillation. History Of Present Illness: Ms. Eric is 81 years old. Has a history of hypertension, rheumatoid arthritis, hypothyroidism, coronary artery disease, status post stent, atrial fibrillation, came in w ith lower GI bleed, hemoglobin is 7.9. GI workup is pending. She remains in atrial fibrillation at a rate of 112. Her BNP was 6966, otherwise her laboratories were normal. EKG showed AFib. Chest x- ray is negative. She denied any cardiac symptoms. Denied any palpitation, chest pain, nausea, vomit ing, diaphoresis, PND, orthopnea, pedal edema, palpitations, or syncope. Allergies: SHE IS ALLERGIC TO SULFA. Review of Systems: Negative. Social History: Negative. Family History: Negative. Medications: At home include losartan, allopurinol, aspirin, Bystolic, Synthroid, Xarelto, and hydro chlorothiazide. Physical Examination: General: She was in AFib at 112. Vital Signs: Otherwise stable. She was afebrile. HEENT: Negative. Neck: Supple with no bruit. Chest: Clear. Cardiac: Revealed atrial fibrillation. Abdomen: Benign. Extremities: Revealed no clubbing, cyanosis, or edema. Skin: Dry and intact. Neurologic: She was nonfocal. Diagnostic Data: As stated earlier. Impression And Plan: Gastrointestinal bleed in the setting of atrial fibrillation. Atrial fibrillat ion rate is 112 secondary to anemia. Her BNP is elevated secondary to anemia and demand ischemia. E chocardiogram is pending. Increase beta-blockers, hold Xarelto, resume GI workup. She is cleared fo r that from our standpoint. Case was discussed with Dr. Sauer. Her blood pressure, rheumatoid arthri tis, hypothyroidism are stable at this point. We will continue to follow her. NB/MODL Voice ID: [id number] Report ID: [id number]
[2021-09-18] MEDS: NA CHLORIDE 0.9% 1,000 ML IV SCH ×2 (04:07→14:49)
[2021-09-18 06:29] LABS: Absolute Lymphocytes (CBC) 0.6 K/uL (0.7-4.9); Lymphocytes % 12.9 % (15.3-44.8); MPV 8.3 fL (7.6-11.3); RBC Red Blood Cell Count 2.25 M/uL (3.86-4.86)
[2021-09-18 07:41] LABS: ALT/SGPT 36 U/L (12-78); AST/SGOT 31 U/L (15-37); Albumin 3.2 g/dL (3.4-5.0); Alkaline Phosphatase 80 U/L (45-117); BUN Blood Urea Nitrogen 19 mg/dL (7-18); Bicarbonate 20 mmol/L (21-32); Bilirubin Total 0.3 mg/dL (0.2-1.0); Folic Acid, (Folate) > 20.0 ng/mL (3.1-17.5); Glomerular Filtration Rate 43 mL/min (=/>90); Glucose Level 120 mg/dL (74-106); Magnesium 1.9 mg/dL (1.8-2.4); Phosphorus 2.8 mg/dL (2.5-4.9); Potassium 3.7 mmol/L (3.5-5.1); Protein, Total 5.7 g/dL (6.4-8.2); Sodium Level 140 mmol/L (136-145)
[2021-09-18] MEDS: PANTOPRAZOLE 40 MG INJ IVP SCH ×2 (09:00→20:21)
[2021-09-18] MEDS ORDERED: DIGOXIN 0.25 MG/ML AMP IV ONE (09:30)
[2021-09-18] MEDS: METOCLOPRAMIDE 10 MG/2mL INJ IV SCH ×2 (11:00→12:00)
[2021-09-18] MEDS ORDERED: METOPROLOL TAR 50 MG TAB PO ONE (12:26)
[2021-09-18] MEDS: SOD FERRIC GLUC COMPLX/SUCROSE 250 MG in NA CHLORIDE 0.9% 250 ML IV SCH (13:00)
[2021-09-18] MEDS ORDERED: MAGNESIUM CITRATE 300 ML BOT PO SCH (13:00)
[2021-09-18] MEDS ORDERED: GOLYTELY 4000 ML PO SCH (14:00)
[2021-09-18] MEDS ORDERED: BISACODYL E.C. 5 MG TAB PO ONE (14:27)
[2021-09-18] MEDS ORDERED: METOCLOPRAMIDE 5 MG TAB PO SCH (16:00)
[2021-09-18] MEDS ORDERED: DIGOXIN 0.25 MG TABLET PO ONE (16:32)
[2021-09-18] MEDS ORDERED: METOCLOPRAMIDE 10 MG/2mL INJ IV SCH (16:59)
[2021-09-18] MEDS: METOPROLOL TAR 25 MG TAB PO SCH (17:52)
--- NOTE | 2021-09-18 19:07 | CON ---
Date of Consultation: 09/16/2021 Brief History Of Present Illness: The patient is a 81-year-old female, [facility] being [facility] in my clinic, who came to my clinic with complaints of melenic stool. She had been having this off and on for approximately 1 year's time, but as of late she felt she was getting dizz y, lightheaded and had presyncope on multiple occasions. She was attended to by her daughter, who is present with her in the clinic. Ultimately I sent her from the clinic to the emergency room at [facility], she was evaluated for admission at that point, as she had the above stated complaints. 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 Past Surgical History: Includes bilateral knee replacement, cardiac stents in 2013 x2, laparoscopic cholecystectomy. Social History: She lives at home. She denies smoking, alcohol, or recreational drug use. Review of Systems: On 10-point review of systems other than HPI, she admits to fatigue, malaise, weakness, and melenic s tool as described. Allergies: SULFA AGENTS. Medications: Home medications include allopurinol, aspirin, Synthroid, losartan, multivitamin, Bysto lic, Xarelto, and hydrochlorothiazide. Physical Examination: Vital Signs: At time of my examination were heart rate of 131, respiratory rate 15, blood pressure 1 03/59, SpO2 100% on room air. General: She is awake, alert, and oriented. Psychiatric: She was appropriate and conversive. HEENT: She was normocephalic. Her sclerae are anicteric. Mucous membranes moist. Oropharynx is cl ear. Her mucosa appears somewhat pale. Neck: Supple without JVD. Chest: Normal expansion and excursion. Cardiovascular: Irregular rate and rhythm/irregularly irregular. Abdomen: Soft, nontender, nondistended. Extremities: No clubbing, cyanosis, or edema. Skin: Warm and dry. Rectal: Exam shows dark black tarry stool consistent with melenic bleeding. Laboratory Data: White blood cell count of 5.7, hemoglobin 8.9, hematocrit of 26.4, platelet count w as 205. Her coags showed a PT of 41, INR 1.28. Chemistry showed sodium 138, potassium 4.1, chloride 108, carbon dioxide 23, BUN 30, creatinine 1.5, glucose was 197, calcium 9.7, magnesium 2.1, total b ilirubin 0.2, direct bilirubin 0.1, AST 30, ALT 38, alkaline phosphatase is 103. ProBNP is 6966. CO VID was negative. She had imaging performed, which included a CT of the abdomen and pelvis on 2021, officially read as enhancement of the gastric wall present without dilatation or focal mass. G astritis is possible and needs correlation with clinical presentation. Diverticulosis is present wit hout diverticulitis. No acute colonic findings. Assessment And Plan: This is a 81-year-old female who presents with fatigue, malaise, and arrhythmia with history of melenic stool and active melenic stool on admission. 1.IV fluid hydration. 2.Recommend Cardiology consult for her atrial fibrillation. 3.Recommend cessation or holding of anticoagulation as she currently has what appears to be a curren t gastrointestinal bleed of uncertain origin. We will clear with Cardiology at this time. 4.Transfuse blood products as needed p.r.n. 5.We will recommend gastrointestinal endoscopy both upper and lower. I have requested Dr. Mota to see the patient for possible gastrointestinal bleeding. I have explained risks, benefits, and alter natives of above stated plan. The patient agreed to proceed as indicated. Thank you for this interesting consult. VENECIA/CELY Voice ID: [id number] Report ID: [id number]
[2021-09-18] MEDS ORDERED: DILTIAZEM HCL 125 MG/25 ML VIAL IVP ONE (23:00)
[2021-09-18] MEDS ORDERED: DILTIAZEM HCL 60 MG TAB PO ONE (23:10)
[2021-09-19] MEDS: NA CHLORIDE 0.9% 1,000 ML IV SCH ×3 (04:09→20:03)
[2021-09-19] MEDS: METOPROLOL TAR 25 MG TAB PO SCH ×2 (05:53→18:33)
[2021-09-19 06:20] LABS: Lymphocytes % 20.1 % (15.3-44.8); MPV 8.1 fL (7.6-11.3); RBC Red Blood Cell Count 2.15 M/uL (3.86-4.86)
[2021-09-19 06:32] LABS: Albumin 3.1 g/dL (3.4-5.0); Bilirubin Total 0.3 mg/dL (0.2-1.0); Phosphorus 3.1 mg/dL (2.5-4.9); Potassium 3.6 mmol/L (3.5-5.1); Protein, Total 5.7 g/dL (6.4-8.2)
--- NOTE | 2021-09-19 07:50 | P.PN ---
Date of Service: 09/17/21 Subjective Patient still with some lower GI bleeding. Clinically otherwise doing well. No other complaints voiced. Tachycardic and home medication restarted. Physical Examination - Physical Exam General: Alert, In no apparent distress, Oriented x3 Respiratory: Clear to auscultation bilaterally, Normal air movement Cardiovascular: No edema, Normal pulses, Irregular heart rate/rhythm (afib) Gastrointestinal: Normal bowel sounds, Soft and benign, Non-distended, No tenderness Musculoskeletal: No tenderness Integumentary: No rashes Neurological: Normal speech, Normal strength at 5/5 x4 extr, Normal tone, Normal affect Assessment and Plan - Problems (Diagnosis) (1) Lower GI bleed Current Visit: Yes Status: Acute (2) Acute blood loss anemia Current Visit: Yes Status: Acute (3) Chronic atrial fibrillation with RVR Current Visit: Yes Status: Chronic (4) Hypothyroidism Current Visit: No Status: Chronic Qualifiers: Hypothyroidism type: acquired Qualified Code(s): E03.9 - Hypothyroidism, unspecified (5) CAD (coronary artery disease) Current Visit: Yes Status: Chronic Qualifiers: Coronary Disease-Associated Artery/Lesion type: unspecified vessel or lesion type [place] vs. transplanted heart: [place] heart Associated angina: without angina Qualified Code(s): I25.10 - Atherosclerotic heart disease of [place] coronary artery without angina pectoris (6) Hypertension Current Visit: No Status: Chronic Qualifiers: Hypertension type: primary hypertension Qualified Code(s): I10 - Essential (primary) hypertension (7) ANGIE (acute kidney injury) Current Visit: Yes Status: Acute - Plan -GI consulted. Patient to be seen later today or in the morning. PPI jasper Peter consulted and seen patient. Unable to do endoscopy procedures in hospital -Transfuse if hemoglobin less than 7 -Patient has been in afib with HR > 130. given 25 metoprolol in the ER. will continue PRN. continue home medication for rate control when verified. cardiology consulted. -baseline renal status is unknown but patient denies any kidney problems. Cr 1.51 suggestive of ANGIE. Gentle IV hydration overnight. Hold nephrotoxic drugs. -SCDs for VTE ppx
[2021-09-19] MEDS ORDERED: METOPROLOL TARTRATE 5 MG/5 ML INJ IV STA ×2 (07:54→12:12)
--- NOTE | 2021-09-19 07:54 | P.PN ---
Date of Service: 09/18/21 Subjective Had a long discussion with family. Upset that endoscopy has not been done. Explained to her that patient was on blood thinners. Heart rate still elevated. Home medications restarted. IV pending Physical Examination - Physical Exam General: Alert, In no apparent distress, Oriented x3 Respiratory: Clear to auscultation bilaterally, Normal air movement Cardiovascular: No edema, Normal pulses, Irregular heart rate/rhythm (afib) Gastrointestinal: Normal bowel sounds, Soft and benign, Non-distended, No tenderness Musculoskeletal: No tenderness Integumentary: No rashes Neurological: No focal deficits Assessment and Plan - Problems (Diagnosis) (1) Lower GI bleed Current Visit: Yes Status: Acute (2) Acute blood loss anemia Current Visit: Yes Status: Acute (3) Chronic atrial fibrillation with RVR Current Visit: Yes Status: Chronic (4) Hypothyroidism Current Visit: No Status: Chronic Qualifiers: Hypothyroidism type: acquired Qualified Code(s): E03.9 - Hypothyroidism, unspecified (5) CAD (coronary artery disease) Current Visit: Yes Status: Chronic Qualifiers: Coronary Disease-Associated Artery/Lesion type: unspecified vessel or lesion type [place] vs. transplanted heart: [place] heart Associated angina: without angina Qualified Code(s): I25.10 - Atherosclerotic heart disease of [place] coronary artery without angina pectoris (6) Hypertension Current Visit: No Status: Chronic Qualifiers: Hypertension type: primary hypertension Qualified Code(s): I10 - Essential (primary) hypertension (7) ANGIE (acute kidney injury) Current Visit: Yes Status: Acute - Plan -Endoscopy procedure in the morning -Monitor H&H -transfuse if hemoglobin less than 7 -Continue medication for rate control; IV pending -Renal function stable -SCDs for VTE ppx
--- NOTE | 2021-09-19 07:56 | P.PN ---
Date of Service: 09/19/21 Subjective Patient have EGD and colonoscopy today. Hemoglobin is 7.5. Continue monitoring. Physical Examination - Physical Exam General: Alert, In no apparent distress, Oriented x3 Respiratory: Clear to auscultation bilaterally, Normal air movement Cardiovascular: No edema, Normal pulses, Irregular heart rate/rhythm (afib) Gastrointestinal: Normal bowel sounds, Soft and benign, Non-distended, No tenderness Musculoskeletal: No tenderness Integumentary: No rashes Neurological: No focal deficits Assessment and Plan - Problems (Diagnosis) (1) Lower GI bleed Current Visit: Yes Status: Acute (2) Acute blood loss anemia Current Visit: Yes Status: Acute (3) Chronic atrial fibrillation with RVR Current Visit: Yes Status: Chronic (4) Hypothyroidism Current Visit: No Status: Chronic Qualifiers: Hypothyroidism type: acquired Qualified Code(s): E03.9 - Hypothyroidism, unspecified (5) CAD (coronary artery disease) Current Visit: Yes Status: Chronic Qualifiers: Coronary Disease-Associated Artery/Lesion type: unspecified vessel or lesion type [place] vs. transplanted heart: [place] heart Associated angina: without angina Qualified Code(s): I25.10 - Atherosclerotic heart disease of [place] coronary artery without angina pectoris (6) Hypertension Current Visit: No Status: Chronic Qualifiers: Hypertension type: primary hypertension Qualified Code(s): I10 - Essential (primary) hypertension (7) ANGIE (acute kidney injury) Current Visit: Yes Status: Acute - Plan -Endoscopy procedure today -Monitor H&H -hemoglobin is 7.5. May give 1 unit later today. -Continue medication for rate control; will give IV Lopressor x1 -Renal function stable -SCDs for DVT prophylaxis
[2021-09-19] MEDS ORDERED: SOD FERRIC GLUC COMPLX/SUCROSE 250 MG in NA CHLORIDE 0.9% 250 ML IV SCH (09:00)
[2021-09-19] MEDS ORDERED: LIDOCAINE 1% MPF 5 ML VIAL ONE ×2 (09:03→13:05)
[2021-09-19] MEDS: PANTOPRAZOLE 40 MG INJ IVP SCH ×2 (10:09→20:04)
[2021-09-19 10:51] LABS: Urine Appearance Clear (Clear); Urine Bilirubin Negative (Negative); Urine Blood 2+ (Negative); Urine Color Yellow (Yellow); Urine Glucose Negative (Negative); Urine Protein Negative (Negative); Urine Specific Gravity >=1.030 (1.005-1.030); Urine Urobilinogen 0.2 mg/dL (0.2-1.0)
[2021-09-19] MEDS: SOD FERRIC GLUC COMPLX/SUCROSE 250 MG in NA CHLORIDE 0.9% 250 ML IV SCH (10:51)
[2021-09-19 10:56] LABS: Urine Microscopic Reflex ORDER UMIC
[2021-09-19 11:18] LABS: Urine Bacteria <20 /HPF (<20); Urine RBC NONE SEEN /HPF (NONE SEEN)
[2021-09-19] MEDS ORDERED: propofoL 200 MG/20 ML VIAL IV ONE (13:05)
--- NOTE | 2021-09-19 13:23 | ENDO RPT ---
[address], [address] EGD PROCEDURE REPORT EXAM DATE: 09/19/2021 PATIENT NAME: Cynthia Eric MR#: [id number] BIRTHDATE: 1940 ATTENDING: Dat Mota Dr STATUS: inpatient - 7 SITE PHYSICIAN: Zuleyma VAZQUEZ and Rivka Barajas RN and Obinna Lujan INDICATIONS: The patient is a 81 yr old Female here for an EGD due to upper PROCEDURE PERFORMED: EGD with biopsy MEDICATIONS: Per Anesthesia. TOPICAL ANESTHETIC: none CONSENT: The patient understands the risks and benefits of the procedure and understands that these risks include, but are not limited to: sedation, allergic reaction, infection, perforation and/or bleeding. Alternative means of evaluation and treatment include, among others: physical exam, x-rays, and/or surgical intervention. The patient elects to proceed with this endoscopic procedure. DESCRIPTION OF PROCEDURE: During intra-op preparation period all mechanical medical equipment was checked for proper function. Hand hygiene and appropriate measures for infection prevention was taken. Procedure, possible complications, and alternatives including but not limited to the possibility of bleeding, perforation, tear, infection, sepsis, need for surgery, need for blood transfusion, and anesthesia related complications were explained to the patient. After the risks, benefits and alternatives of the procedure were thoroughly explained, Informed consent was verified, confirmed and timeout was successfully executed by the treatment team. The patient was placed in the left lateral position. The patient was anesthetized with topical anesthesia. Through the anesthetized oropharyngeal area, the scope was passed without any difficulty. The EG-[id number] ([id number]) endoscope was introduced through the mouth and advanced to the third portion of the duodenum. Retroflexed views revealed a small hiatal hernia. The gastroscope was then slowly withdrawn and removed. A Schatzki's ring was found in the lower esophagus (no history of dysphagia). A small hiatal hernia was found. Mild duodenitis was found in the bulb of the duodenum. Multiple biopsies of stomach were obtained and sent to pathology. ADVERSE EVENTS: There were no complications. IMPRESSIONS: 1. Schatzki's ring in the lower esophagus (no history of dysphagia) 2. Small hiatal hernia 3. Mild duodenitis in the bulb of the duodenum, s/p gastric biopsies 4. No active GI bleeding nor stigmata of recent bleeding RECOMMENDATIONS: 1. await biopsy results 2. acid suppression therapy REPEAT EXAM: Dat Mota Dr eSigned: Dat Mota Dr 09/19/2021 1:23 PM cc: CPT CODES: ICD9 CODES: PATIENT NAME: Jeaneth Cynthia Best MR#: [id number]
--- NOTE | 2021-09-19 13:26 | PN ---
Date of Progress Note: 09/18/2021 Ms. Eric was followed for lower GI bleed in the setting of atrial fibrillation. Her heart rate wa s 112. I had recommended that her Xarelto held and increase her beta-benito. Continue her losartan and allopurinol. Hold her aspirin. Continue hydrochlorothiazide. She was cleared for a GI workup. Echocardiogram showed a normal ejection fraction. Atrial fibrillation. No wall motion abnormaliti es and no effusion. Again, she is cleared for GI workup. We will make a decision regarding her anti coagulation depending on the findings. We should eventually consider her for a Watchman procedure. THEA/CELY Voice ID: [id number] Report ID: [id number]
[2021-09-19] MEDS ORDERED: Phenylephrine HCl 10 MG/ML 1 ML VIAL ONE (13:30)
[2021-09-19] MEDS ORDERED: EPINEPHRINE 1 MG/ML VIAL IV ONE (13:50)
[2021-09-19] MEDS ORDERED: GLUCAGON 1 MG/VIAL ONE (13:52)
[2021-09-19] MEDS ORDERED: EPINEPHRINE/PF 1 MG/ML AMP ONE (13:55)
--- NOTE | 2021-09-19 14:20 | ENDO RPT ---
[address], [address] COLONOSCOPY PROCEDURE REPORT EXAM DATE: 09/19/2021 PATIENT NAME: Cynthia Eric MR #: [id number] BIRTHDATE: 1940 ATTENDING: Dat Mota Dr STATUS: inpatient - 7 BOAT RIDE OPERATOR: Zuleyma VAZQUEZ and Cally Stokes INDICATIONS: The patient is a 81 yr old Female here for a colonoscopy due to hematochezia, anemia, and weight loss PROCEDURE PERFORMED: Colonoscopy for control of bleeding, Colonoscopy with directed submucosal injection(s) any substance, and Colon w/ endoclip MEDICATIONS: Per Anesthesia. ESTIMATED BLOOD LOSS: None CONSENT: The patient understands the risks and benefits of the procedure and understands that these risks include, but are not limited to: sedation, allergic reaction, infection, perforation and/or bleeding. Alternative means of evaluation and treatment include, among others: physical exam, x-rays, and/or surgical intervention. The patient elects to proceed with this endoscopic procedure. DESCRIPTION OF PROCEDURE: During intra-op preparation period all mechanical medical equipment was checked for proper function. Hand hygiene and appropriate measures for infection prevention was taken. Procedure, possible complications, alternatives including, but not limited to possibility of bleeding, perforation, tear, infection, sepsis, need for surgery, need for blood transfusion, were explained to the patient. After the risks, benefits and alternatives of the procedure were thoroughly explained, Informed consent was verified, confirmed and timeout was successfully executed by the treatment team. The patient was placed in the left lateral position. A digital rectal exam was performed and revealed external hemorrhoids. After appropriate level of anesthesia, the scope was passed. The EG-[id number] ([id number]) and EC-[id number] ([id number]) endoscope was introduced through the anus and advanced to the terminal ileum which was intubated for a short distance. The quality of the prep was fair. The instrument was then slowly withdrawn as the colon was fully examined. Scope withdrawal time was 12 minutes. COLON FINDINGS: Bright red blood scattered throughout the colon, predominantly visualization - difficult to intubate). Mild diverticulosis was noted in the sigmoid colon. There was active bleeding noted from the diverticulosis. Diverticulum in the sigmoid colon, just proximal to pool of fresh blood - suctioned out with colonoscope; diverticulum drained some blood even after washing with water jet several times; IV Glucagon given to stop colon spasms. The opening was small. Bleeding at the site was controlled using hemoclip. One (1) placement was made. Bleeding from the maneuver was treated with 10 cc epinephrine. A 1:10,000 Epinephrine solution injection was given to control bleeding. Small internal and external hemorrhoids were found. Retroflexed views revealed small hemorrhoids. The scope was then completely withdrawn from the patient and the procedure terminated. ADVERSE EVENTS: There were no complications. IMPRESSIONS: 1. Bright red blood scattered throughout the colon, limited visualization - difficult to intubate) 2. Mild diverticulosis in the sigmoid colon 3. Diverticulum in the sigmoid colon, just proximal to pool of fresh blood - suctioned out with colonoscope; diverticulum drained some blood even after washing with water jet several times; IV Glucagon given to stop colon spasms; bleeding at the site was controlled using hemoclip X1; 10 cc injection was given to control bleeding. 1:10,000 Epinephrine solution 4. Small internal and external hemorrhoids 5. Intubation to terminal ileum RECOMMENDATIONS: 1. Monitor for any evidence of rectal bleeding. 3. transfuse 1 unit PRBCs now 4. check bleeding scan now RECALL: Dat Mota Dr eSigned: Dat Mota Dr 09/19/2021 2:20 PM cc: [Referring Physician] CPT CODES: ICD9 CODES: 1. 455.5 External hemorrhoids with other complication 2. 562.10 Diverticulosis of colon (without mention of hemorrhage) PATIENT NAME: Cynthia Eric MR#: [id number]
[2021-09-19] MEDS ORDERED: NA CHLORIDE 0.9% 250 ML ONE (15:42)
[2021-09-19 21:09] LABS: Hematocrit 25.9 % (36.0-45.0); Lymphocytes % 12.5 % (15.3-44.8); MPV 7.4 fL (7.6-11.3); RBC Red Blood Cell Count 2.57 M/uL (3.86-4.86)
[2021-09-20] MEDS: METOPROLOL TAR 25 MG TAB PO SCH ×2 (05:30→18:26)
[2021-09-20 07:03] LABS: Hematocrit 26.6 % (36.0-45.0); MPV 7.1 fL (7.6-11.3); RBC Red Blood Cell Count 2.61 M/uL (3.86-4.86)
[2021-09-20] MEDS: PANTOPRAZOLE 40 MG INJ IVP SCH ×2 (08:08→20:42)
[2021-09-20] MEDS: NA CHLORIDE 0.9% 1,000 ML IV SCH (08:10)
[2021-09-20 08:16] VITALS: O2SAT 97
[2021-09-20] MEDS ORDERED: FENTANYL CITR 100 MCG/2 ML ONE (08:42)
[2021-09-20] MEDS ORDERED: propofoL 200 MG/20 ML VIAL IV ONE (08:42)
[2021-09-20] MEDS ORDERED: LIDOCAINE 2% MPF 5 ML VIAL ONE (08:42)
[2021-09-20] MEDS ORDERED: ROCURONIUM 50 MG/5 ML VIAL IV ONE (08:43)
[2021-09-20] MEDS ORDERED: ONDANSETRON 4 MG/2 ML VIAL ONE (08:44)
[2021-09-20] MEDS ORDERED: MIDAZOLAM HCL 2 MG/2 ML INJ ONE (08:46)
[2021-09-20] MEDS: SOD FERRIC GLUC COMPLX/SUCROSE 250 MG in NA CHLORIDE 0.9% 250 ML IV SCH (09:57)
--- NOTE | 2021-09-20 10:07 | P.PN ---
Subjective Date of Service: 09/20/21 Chief Complaint: LGIB Subjective: Improving (Patient had endoscopy with clipping yesterday of diverticular bleeding, no complaints today) Physical Examination - Vital Signs Temperature: 98.2 F Blood Pressure: 119/83 Pulse: 93 Respirations: 16 Pulse Ox (%): 97 - Physical Exam General: Alert, In no apparent distress, Cooperative Gastrointestinal: Soft and benign Assessment And Plan - Current Problems (Diagnosis) (1) Lower GI bleed Current Visit: Yes Status: Acute Plan: - continue serial Hgb checks - bleeding scan ordered - continue plan per Dr. Courtney, will follow - transfuse PRN - continue medical management
[2021-09-20] MEDS ORDERED: HEPARIN 500 UNIT/5 ML SYR IV ONE (12:19)
--- NOTE | 2021-09-20 16:05 | RAD REPORT ---
EXAM DESCRIPTION: NM - GI Blood Loss Imaging - 09/20/2021 3:38 pm CLINICAL HISTORY: Gastrointestinal bleeding COMPARISON: None. TECHNIQUE: The patient was administered 24.6 millicuries technetium labeled red blood cells. Dynamic images of the abdomen and pelvis were obtained for 60 minutes FINDINGS: No abnormal radiotracer activity is seen within the bowel. No abnormality displayed IMPRESSION: No evidence of active gastrointestinal bleeding during the examination
--- NOTE | 2021-09-20 16:23 | P.PN ---
Subjective Date of Service: 09/20/21 Chief Complaint: Hematochezia, anemia Subjective: Improving (No further bleeding since colonoscopy with endoclip and Epi injection yesterday of sigmoid diverticulum. She has no complaints.) Review of Systems 10-point ROS is otherwise unremarkable General: Weakness (Improved.), Malaise (Improved.) Physical Examination - Vital Signs Temperature: 97.8 F Blood Pressure: 125/84 Pulse: 104 Respirations: 16 Pulse Ox (%): 97 - Physical Exam General: Alert, In no apparent distress, Oriented x3, Cooperative HEENT: Atraumatic, Normocephalic, PERRLA, EOMI Neck: Supple Respiratory: Normal air movement Cardiovascular: Normal pulses Gastrointestinal: Soft and benign, No tenderness, No rebound, No guarding Neurological: Normal speech, Normal strength at 5/5 x4 extr Assessment And Plan - Current Problems (Diagnosis) (1) Hematochezia Current Visit: Yes Status: Acute Comment: Improved. None since colonoscopy with therapy 09-19-21. (2) Diverticular hemorrhage Current Visit: Yes Status: Acute (3) Anemia Current Visit: Yes Status: Acute (4) CAD (coronary artery disease) Current Visit: Yes Status: Chronic Qualifiers: Coronary Disease-Associated Artery/Lesion type: unspecified vessel or lesion type [place] vs. transplanted heart: [place] heart Associated angina: without angina Qualified Code(s): I25.10 - Atherosclerotic heart disease of [place] coronary artery without angina pectoris (5) Chronic atrial fibrillation with RVR Current Visit: Yes Status: Chronic (6) Hypertension Current Visit: No Status: Chronic Qualifiers: Hypertension type: primary hypertension Qualified Code(s): I10 - Essential (primary) hypertension (7) Hypothyroidism Current Visit: No Status: Chronic Qualifiers: Hypothyroidism type: acquired Qualified Code(s): E03.9 - Hypothyroidism, unspecified - Plan REC: 1) serial H&Hs and transfuse prn 2) advance diet from CLs to FLs and slowly to GI soft 3) d/c in 1-2 days if no further GI bleeding
[2021-09-20] MEDS ORDERED: METOPROLOL TARTRATE 5 MG/5 ML INJ IV STA ×2 (16:41→17:24)
[2021-09-20] MEDS ORDERED: DIGOXIN 0.25 MG/ML AMP IV ONE (19:21)
--- NOTE | 2021-09-20 19:21 | P.PN ---
Date of Service: 09/20/21 Subjective Colonoscopy revealed diverticular bleed. This was clipped and injected. Bleeding has stopped and hemoglobin is stable. Nuclear medicine GI bleed scan pending. Physical Examination - Physical Exam General: Alert, In no apparent distress, Oriented x3 Respiratory: Clear to auscultation bilaterally, Normal air movement Cardiovascular: No edema, Normal pulses, Irregular heart rate/rhythm (afib) Gastrointestinal: Normal bowel sounds, Soft and benign, Non-distended, No tenderness Neurological: No focal deficits Assessment and Plan - Problems (Diagnosis) (1) Lower GI bleed Current Visit: Yes Status: Acute (2) Acute blood loss anemia Current Visit: Yes Status: Acute (3) Chronic atrial fibrillation with RVR Current Visit: Yes Status: Chronic (4) Hypothyroidism Current Visit: No Status: Chronic Qualifiers: Hypothyroidism type: acquired Qualified Code(s): E03.9 - Hypothyroidism, unspecified (5) CAD (coronary artery disease) Current Visit: Yes Status: Chronic Qualifiers: Coronary Disease-Associated Artery/Lesion type: unspecified vessel or lesion type [place] vs. transplanted heart: [place] heart Associated angina: without angina Qualified Code(s): I25.10 - Atherosclerotic heart disease of [place] coronary artery without angina pectoris (6) Hypertension Current Visit: No Status: Chronic Qualifiers: Hypertension type: primary hypertension Qualified Code(s): I10 - Essential (primary) hypertension (7) ANGIE (acute kidney injury) Current Visit: Yes Status: Acute - Plan -EGD and colonoscopy completed; nuclear medicine scan negative -Hemoglobin remained stable -Continue with Lopressor. IV push pending -Renal function stable -SCDs for DVT prophylaxis
[2021-09-20 21:31] VITALS: BMI 31.1
[2021-09-21] MEDS: NA CHLORIDE 0.9% 1,000 ML IV SCH (02:23)
[2021-09-21 08:03] LABS: Absolute Lymphocytes (CBC) 0.9 K/uL (0.7-4.9); Hematocrit 23.4 % (36.0-45.0); Lymphocytes % 17.4 % (15.3-44.8); MPV 8.5 fL (7.6-11.3); RBC Red Blood Cell Count 2.33 M/uL (3.86-4.86)
[2021-09-21 08:21] LABS: Magnesium 1.6 mg/dL (1.8-2.4); Potassium 3.5 mmol/L (3.5-5.1)
[2021-09-21 08:22] LABS: Thyroid Stimulating Hormone 6.03 uIU/mL (0.360-3.740)
[2021-09-21] MEDS: PANTOPRAZOLE 40 MG INJ IVP SCH ×2 (08:46→21:39)
[2021-09-21] MEDS: NEBIVOLOL HCL 5 MG TAB PO SCH (08:47)
[2021-09-21] MEDS: SOD FERRIC GLUC COMPLX/SUCROSE 250 MG in NA CHLORIDE 0.9% 250 ML IV SCH (10:08)
[2021-09-21 11:20] LABS: Absolute Lymphocytes (CBC) 0.7 K/uL (0.7-4.9); Hematocrit 24.5 % (36.0-45.0); Lymphocytes % 13.1 % (15.3-44.8); MPV 7.9 fL (7.6-11.3); RBC Red Blood Cell Count 2.42 M/uL (3.86-4.86)
[2021-09-21] MEDS ORDERED: NA CHLORIDE 0.9% 250 ML IV SCH (12:00)
[2021-09-21] MEDS ORDERED: DIGOXIN 0.25 MG/ML AMP IV ONE (13:04)
--- NOTE | 2021-09-21 21:16 | P.PN ---
Date of Service: 09/21/21 Subjective Hgb dropped; otherwise doing better; repeat is improved; HR stable Physical Examination - Physical Exam General: Alert, In no apparent distress, Oriented x3 Respiratory: Clear to auscultation bilaterally, Normal air movement Cardiovascular: No edema, Normal pulses, Irregular heart rate/rhythm (afib) Gastrointestinal: Normal bowel sounds, Soft and benign, Non-distended, No tenderness Neurological: No focal deficits Assessment and Plan - Problems (Diagnosis) (1) Lower GI bleed Current Visit: Yes Status: Acute (2) Acute blood loss anemia Current Visit: Yes Status: Acute (3) Chronic atrial fibrillation with RVR Current Visit: Yes Status: Chronic (4) Hypothyroidism Current Visit: No Status: Chronic Qualifiers: Hypothyroidism type: acquired Qualified Code(s): E03.9 - Hypothyroidism, unspecified (5) CAD (coronary artery disease) Current Visit: Yes Status: Chronic Qualifiers: Coronary Disease-Associated Artery/Lesion type: unspecified vessel or lesion type [place] vs. transplanted heart: [place] heart Associated angina: without angina Qualified Code(s): I25.10 - Atherosclerotic heart disease of [place] coronary artery without angina pectoris (6) Hypertension Current Visit: No Status: Chronic Qualifiers: Hypertension type: primary hypertension Qualified Code(s): I10 - Essential (primary) hypertension (7) ANGIE (acute kidney injury) Current Visit: Yes Status: Acute - Plan -EGD and colonoscopy completed; nuclear medicine scan negative -Hemoglobin remained stable -Continue with Lopressor. added dig -Renal function stable -SCDs for DVT prophylaxis
[2021-09-22] MEDS ORDERED: LEVOTHYROXINE SOD 0.075 MG TAB PO SCH (06:00)
[2021-09-22 06:20] LABS: Absolute Lymphocytes (CBC) 0.7 K/uL (0.7-4.9); Hematocrit 24.2 % (36.0-45.0); Lymphocytes % 12.9 % (15.3-44.8); RBC Red Blood Cell Count 2.39 M/uL (3.86-4.86)
[2021-09-22 06:30] LABS: Albumin 2.7 g/dL (3.4-5.0); Bilirubin Total 0.4 mg/dL (0.2-1.0); Magnesium 1.6 mg/dL (1.8-2.4); Potassium 3.5 mmol/L (3.5-5.1); Protein, Total 5.2 g/dL (6.4-8.2)
[2021-09-22] MEDS ORDERED: FUROSEMIDE 20 MG/ 2ML VIAL IV SCH (08:00)
[2021-09-22 08:26] VITALS: TEMP 97.6
[2021-09-22] MEDS: NEBIVOLOL HCL 5 MG TAB PO SCH (08:59)
[2021-09-22] MEDS ORDERED: hydroCHLOROthiazide 25 MG TAB PO SCH (09:00)
[2021-09-22] MEDS ORDERED: allopurinoL 300 MG TAB PO SCH (09:00)
[2021-09-22] MEDS ORDERED: DIGOXIN 0.125 MG TABLET PO SCH (09:00)
[2021-09-22] MEDS ORDERED: MULTIVITAMIN TAB PO SCH (09:00)
[2021-09-22] MEDS: PANTOPRAZOLE 40 MG INJ IVP SCH (09:02)
[2021-09-22 12:01] VITALS: BP 99/58
--- NOTE | 2021-09-22 12:32 | P.PN ---
Subjective Date of Service: 09/22/21 Chief Complaint: Hematochezia, anemia Patient had some blood in stool, but feels generally well Physical Examination - Vital Signs Temperature: 97.6 F Blood Pressure: 99/58 Pulse: 85 Respirations: 16 Pulse Ox (%): 94 - Physical Exam General: Alert, In no apparent distress, Cooperative Respiratory: Clear to auscultation bilaterally Gastrointestinal: Soft and benign, No tenderness, No masses, No rebound, No guarding Assessment And Plan - Current Problems (Diagnosis) (1) Lower GI bleed Current Visit: Yes Status: Acute Plan: - bleeding scan noted - continue plan per Dr. Courtney, will follow - transfuse PRN - continue medical management
--- NOTE | 2021-09-22 12:32 | P.PN ---
Subjective Date of Service: 09/21/21 Chief Complaint: Hematochezia, anemia Patient had some blood in stool, but feels generally well Physical Examination - Vital Signs Temperature: 97.6 F Blood Pressure: 99/58 Pulse: 85 Respirations: 16 Pulse Ox (%): 94 - Physical Exam General: Alert, In no apparent distress, Cooperative Respiratory: Clear to auscultation bilaterally, Normal air movement Cardiovascular: Irregular heart rate/rhythm Gastrointestinal: Soft and benign, No tenderness, No masses, No rebound, No guarding Assessment And Plan - Current Problems (Diagnosis) (1) Lower GI bleed Current Visit: Yes Status: Acute Plan: - continue serial Hgb checks - bleeding scan noted - continue plan per Dr. Courtney, will follow - transfuse PRN - continue medical management
--- NOTE | 2021-09-22 21:13 | P.DS ---
Discharge Date: 09/22/21 Disposition: ROUTINE DISCHARGE Discharge Condition: GOOD Reason for Admission: Hematochezia, anemia Consultations: GI Cardiology Brief History of Present Illness: Patient is a 81-year-old female with past medical history of CAD, afib on xarelto, hypothyroidism, hypertension who presented to the ED with complaints of blood in her stool and generalized weakness/fatigue. She states that she has been having blood in her stool for a few months now, but the past 3 days it has become more frequent and greater amounts of blood. She reports her stool is soft and black in color. She denies abdominal pain or any hematemesis. She also reports that she has had hair loss the past 3 months. She states that she has had several colonoscopies in the past that have been normal. She states that she has a sister that of colon cancer at age 35. Hemoccult positive. H&H 8.9/26.4, BNP 6966, creatinine 1.51, GFR 33 (baseline unknown). CT showed possible gastritis and diverticulosis without diverticulitis. No acute colon finding seen. She was given Protonix and metoprolol. Dr. Clark was consulted and wishes for patient to be admitted to hospitalist with him consulting for colonscopy. He does not recommend PRBCs at this time. Will admit patient for further evaluation and treatment. Hospital Course: Patient is clinically doing well with no new complaints. Patient had a colonoscopy which revealed diverticular bleed that was clipped and injected. Hemoglobin is stable. Patient's atrial fibrillation is controlled. At this time, patient is stable for discharge home. Vital Signs/Physical Exam: Temp Pulse Resp BP Pulse Ox 97.6 F 85 16 99/58 L 94 09/22/21 12:32 09/22/21 12:32 09/22/21 12:32 09/22/21 12:32 09/22/21 12:32 General: Alert, In no apparent distress, Oriented x3 Respiratory: Clear to auscultation bilaterally, Normal air movement Cardiovascular: Normal pulses, Regular rate/rhythm, No murmurs Gastrointestinal: Soft and benign, Non-distended, No tenderness, No rebound, No guarding Laboratory Data at Discharge: WBC 5.5 K/uL (4.3-10.9) 09/22/21 05:32 Hgb 8.0 g/dL (12.0-15.0) L 09/22/21 05:32 Hct 24.2 % (36.0-45.0) L 09/22/21 05:32 Plt Count 140 K/uL (152-406) L 09/22/21 05:32 PT 14.1 SECONDS (9.5-12.5) H 09/16/21 17:18 INR 1.28 09/16/21 17:18 Sodium 139 mmol/L (136-145) 09/22/21 05:32 Potassium 3.5 mmol/L (3.5-5.1) 09/22/21 05:32 BUN 8 mg/dL (7-18) 09/22/21 05:32 Creatinine 0.88 mg/dL (0.55-1.3) 09/22/21 05:32 Glucose 93 mg/dL (74-106) 09/22/21 05:32 Phosphorus 3.1 mg/dL (2.5-4.9) 09/19/21 06:00 Magnesium 1.6 mg/dL (1.8-2.4) L 09/22/21 05:32 Total Bilirubin 0.4 mg/dL (0.2-1.0) 09/22/21 05:32 AST 19 U/L (15-37) 09/22/21 05:32 ALT 21 U/L (12-78) 09/22/21 05:32 Alkaline Phosphatase 71 U/L (45-117) 09/22/21 05:32 Home Medications: Allopurinol 300 mg PO DAILY 09/16/21 Levothyroxine [Synthroid*] 75 mcg PO [id number] 09/16/21 Losartan Potassium 100 mg PO DAILY 09/16/21 Multivitamin with Minerals [Hair, Skin and Nails] 1 each PO DAILY 09/16/21 Nebivolol HCl [Bystolic*] 10 mg PO DAILY 09/16/21 hydroCHLOROthiazide [Hydrochlorothiazide] 25 mg PO DAILY 09/16/21 Digoxin [Lanoxin*] 0.125 mg PO DAILY #30 tab 09/22/21 Pantoprazole [Protonix Tab] 40 mg PO BID #60 tab 09/22/21 New Medications: Digoxin [Lanoxin*] 0.125 mg PO DAILY #30 tab Pantoprazole [Protonix Tab] 40 mg PO BID #60 tab Physician Discharge Instructions: -DC IV and DC home -Follow-up with PCP in 1 to 2 weeks -Follow-up with Cardiology, GI, Surgery in 1 to 2 weeks -Please call Dr. Sauer at [phone] if any questions regarding hospital stay -Please call nursing station at [phone] if any nursing or medication questions -Return to the emergency room if symptoms worsen Diet: AHA Activity: Fall precautions Followup: Silvia Brandon MD [Primary Care Provider] - (Call to schedule appointment.) Time spent managing pt's care (in minutes): 35
== END 2021-09-22 13:10 | disposition home or self-care (01) | DRG 378 ==
LOC: ER 15:24 → ERHOLD 19:37 → 2ND 21:57
PROVIDERS: ADMIT Hospitalist; ATTEND Hospitalist
PROC: 30233N1 Transfusion of Nonautologous Red Blood Cells into Peripheral Vein, Percutaneous Approach (ICD-10-PCS; 2021-09-19)
PROC: 0W3P8ZZ Control Bleeding in Gastrointestinal Tract, Via Natural or Artificial Opening Endoscopic (ICD-10-PCS; principal; 2021-09-19 11:15)
PROC: 0DB98ZX Excision of Duodenum, Via Natural or Artificial Opening Endoscopic, Diagnostic (ICD-10-PCS; 2021-09-19 11:15)
DX: K57.31 Diverticulosis of large intestine without perforation or abscess with bleeding (principal); D62 Acute posthemorrhagic anemia; N17.9 Acute kidney failure, unspecified; I24.8 Other forms of acute ischemic heart disease; I25.10 Atherosclerotic heart disease of native coronary artery without angina pectoris; K92.1 Melena; I48.91 Unspecified atrial fibrillation; E03.9 Hypothyroidism, unspecified; I10 Essential (primary) hypertension; M06.9 Rheumatoid arthritis, unspecified; K58.9 Irritable bowel syndrome, unspecified; K64.4 Residual hemorrhoidal skin tags; K64.8 Other hemorrhoids; K22.2 Esophageal obstruction; K44.9 Diaphragmatic hernia without obstruction or gangrene; K29.80 Duodenitis without bleeding; Z80.0 Family history of malignant neoplasm of digestive organs; Z95.5 Presence of coronary angioplasty implant and graft; I25.2 Old myocardial infarction; Z96.653 Presence of artificial knee joint, bilateral; Z79.01 Long term (current) use of anticoagulants; Z88.2 Allergy status to sulfonamides; Z20.822 Contact with and (suspected) exposure to COVID-19
CPT/HCPCS: 36415; 36430; 74177; 78278; 80048; 80053; 80076; 81003; 81015; 82272; 82607; 82746; 83540; 83735; 83880; 84100; 84439; 84443; 84484; 85025; 85044; 85610; 86850; 86900; 86901; 87086; 87088; 88305; 88312; 93005; 93306; 96361; 96374; 99285; A9560; C9113; J0171; J1160; J1610; J1642; J2250; J2370; J2405; J2704; J2916; J3010; J7030; J7040; J7050; P9016; Q9967; U0003

== ENCOUNTER 2024-03-12 12:37 | Inpatient (IN) | payer OTHER ==
--- OUTSIDE RECORDS SUMMARY | 2024-03-12 12:41 | XMS REPORT | Continuity of Care Document ---
Author Name Unknown Address [address] [facility] [address] [place] [address] [facility] thconnect Address [address] [facility] [address] [place] [address] Care Team Providers Care Station Examiner Name Role Phone UNKNOWN, REFFERING Primary Care Physician DIANA Forman Attending Clinician UnavailSILVIA Way Attending Clinician Unavailable FERNANDEZ_Kim Attending Clinician Unavailable DBEI_Abe Attending Clinician Unavaila Tommy Ronquillo Attending Clinician Unavailab le Zunjaviera_S Attending Clinician Unavailable VANE MALAGON Attending Clinician Unavailable Silvia Presley Attending Clinician [phone] Jak Mabry Attending Clinician Unavailab kelly Swan Attending Clinician Unavailable PA MORROW Attending Clinician Unavail able ANA BONNER Attending Clinician Unavailable Francoise Attending Clinician Unavailable Pedro Attending Clinician Unavailable FLORI VERDUGO Attending Clinician Unavailable Destin Constantino Attending Clinician Unavailable BRYAN COREY Attending Clinician Unavailable VANE MALAGON Attending Clinician Unavailable AZAEL JOHNSON M.D. Attending Clinician UnaROSS Russell Attending Clinician Unavailab DEANNA Eduardo Attending Clinician Unavailable SAMMI ANDERSON Attending Clinician Unavailable MIRANDA HOFFMAN Attending Clinician Unavailable OLLY MARLEY Attending Clinician Unavailab ELLEN Sharp Attending Clinician Unavailable RUY Admitting Clinician Unavailable Esau_Irwin Admitting Clinician Unavaila george Hicks_S Admitting Clinician Unavailable Sosa Admitting Clinician Unavailable ANA BONNER Admitting Clinician Unavailable Francoise Admitting Clinician Unavailable Pedro Admitting Clinician Unavailable VANE MALAGON Admitting Clinician Unavailable Payers Payer Name Policy Type Policy Number Effective Date Expirati on Date Source [facility] (MEDICARE REPLACEMENT/ADVANTAG E - PPO) [id number] 2021 00:00:00 [facility] (MEDICARE REPLACEMENT/ADVANTAG E - PPO) [id number] [employer] (MEDICARE REPLACEMENT/ADVANTAG E - PPO) [id number] Problems Condition Name Condition Details Condition Category Status Onset Date Resolution Date Last Treatment Date Treating Clinician Comments Source Hypothyroi dism Hypothyroi dism Problem Active 12-04 00:00: 00 [facility] Osteoarthr itis Osteoarthr itis Problem Active 08-13 00:00: 00 [facility] Confusiona l state Confusiona l State Problem Active 2021-05 0 00:00: 00 [facility] Acute urinary tract infection Acute Urinary Tract Infection Problem Active 2021-05 024 00:00: 00 [facility] Acute confusion Acute Confusion Problem Active 10-09 00:00: 00 [facility] Atrial fibrillati on Atrial Fibrillati on Problem Active 10-09 00:00: 00 [facility] Hematochez ia Hematochez ia Problem Active 07-29 00:00: 00 [place] [facility] Poor short-term memory Poor Short-term Memory Problem Active 07-29 00:00: 00 [place] [facility] History of SARS-CoV-2 History of SARS-CoV-2 Problem Active 05-30 00:00: 00 [place] [facility] Dysuria Dysuria Problem Active 12-23 00:00: 00 [place] [facility] Long-term drug therapy Long-term Drug Therapy Problem Active 12-23 00:00: 00 [place] [facility] 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 Pseudarthr osis after Fusion or Arthrodesi s Problem Active 12-10 00:00: 00 [facility] Macrocytos is Macrocytos is Problem Active 09-20 00:00: 00 [place] [facility] Serum creatinine above reference range Serum Creatinine above Reference Range Problem Active 09-20 00:00: 00 [place] [facility] 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 Coronary Arterioscl erosis in [place] Artery Problem Active 2017-05 00:00: 00 [place] [facility] Upper respirator y infection Upper Respirator y Infection Problem Active 2017-0505 00:00: 00 [place] [facility] Diarrhea Diarrhea Problem Active 2017-05 00:00: 00 [facility] Memory impairment Memory Impairment Problem Active 2017-05 00:00: 00 [place] [facility] Hypertensi ve heart disease with congestive heart failure Hypertensi ve Heart Disease with Congestive Heart Failure Problem Active 12-08 00:00: 00 [place] [facility] Long-term current use of anticoagul ant Long-term Current Use of Anticoagul ant Problem Active 12-08 00:00: 00 [place] [facility] Open fracture of right calcaneus Open Fracture of Right Calcaneus Problem Active 12-08 00:00: 00 [facility] Closed fracture of right talus Closed Fracture of Right Talus Problem Active 10-07 00:00: 00 [facility] Degenerati ve joint disease of ankle AND/OR foot Degenerati ve Joint Disease of Ankle AND/OR Foot Problem Active 09-29 00:00: 00 [facility] Osteoarthr itis of foot joint Osteoarthr itis of Foot Joint Problem Active 09-29 00:00: 00 [facility] Essential hypertensi on Essential Hypertensi on Problem Active 08-20 00:00: 00 [facility] Congestive heart failure Congestive Heart Failure Problem Active 08-20 00:00: 00 [facility] Arthralgia of the ankle and/or foot Arthralgia of the Ankle And/or Foot Problem Active 08-20 00:00: 00 [facility] Ankle pain Ankle Pain Problem Active 07-13 00:00: 00 [facility] Long-term drug therapy Long-term Drug Therapy Problem Active 2016-05 212 00:00: 00 [facility] Screening for malignant neoplasm of breast Screening for Malignant Neoplasm of Breast Problem Active 06-16 00:00: 00 [facility] Arthralgia of right ankle Arthralgia of right ankle [facility] Right ankle swelling Right ankle swelling Problem Active [facility] Dermatophy tosis Dermatophy tosis Problem Active [facility] Hyperlipid emia Hyperlipid emia Problem Active [facility] Cellulitis of external ear Cellulitis of External Ear Problem Active [facility] Sinus tachycardi a Sinus Tachycardi a Problem Active [facility] 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 Problem Active [facility] Gastroesop hageal reflux disease Gastroesop hageal Reflux Disease Problem Active [facility] Infection of skin and/or subcutaneo us tissue Infection of Skin And/or Subcutaneo us Tissue Problem Active [facility] Ankle edema Ankle Edema Problem Active [facility] Foot pain Foot Pain Problem Active [facility] Numbness of foot Numbness of Foot Problem Active [facility] Eruption Eruption Problem Active [facility] Closed Salter-Rick ris type I 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, subsequent encounter Closed Salter-Rick ris type I 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, subsequent encounter Problem Active [facility] Mammograph y abnormal Mammograph y Abnormal Problem Active [facility] Abnormal cervical Papanicola ou smear Abnormal Cervical Papanicola ou Smear Problem Active [facility] Allergies, Adverse Reactions, Alerts Allergy Name Allergy Type Status Severity Reaction(s) Onset Date Inactive Date Treating Clinician Comments Source Sulfa (Sulfona mide Antibiot ics) DA Active PR 06-14 00:00: 00 [facility] Sulfa (Sulfona mide Antibiot ics) DA Active PR 1 00:00: 00 [facility] Sulfa (Sulfona mide Antibiot ics) DA Active PR 6 00:00: 00 [facility] SULFA (SULFONA MIDE ANTIBIOT ICS) All[facility]anc [facility] Social History Smoking Status Start Date Stop Date Source Never Smoker [facility] Medications Ordered Medication Name Filled Medication Name Start Date Stop Date Current Medication? Ordering Clinician Indication Dosage Frequency Signature (SIG) Comments Components Source allopurinol 300 mg tablet TAKE 1 TABLET BY MOUTH ONCE DAILY allopurinol 300 mg tablet TAKE 1 TABLET BY MOUTH ONCE DAILY No allopurino l 300 mg tablet TAKE 1 TABLET BY MOUTH ONCE DAILY [facility] amoxicillin 500 mg capsule TAKE 1 CAPSULE BY MOUTH 4 TIMES DAILY UNTIL GONE amoxicillin 500 mg capsule TAKE 1 CAPSULE BY MOUTH 4 TIMES DAILY UNTIL GONE No amoxicilli n 500 mg capsule TAKE 1 CAPSULE BY MOUTH 4 TIMES DAILY UNTIL GONE [facility] atorvastati n 40 mg tablet RX by other atorvastati n 40 mg tablet RX by other No atorvastat in 40 mg tablet RX by other MD [facility] cefuroxime axetil 500 mg tablet cefuroxime axetil 500 mg tablet No cefuroxime axetil 500 mg tablet [facility] clotrimazol e-betametha sone 1 %-0.05 % topical cream APPLY TO AFFECTED AREA(S) AND SURROUNDING AREA OF THE SKIN TWICE DAILY EVERY MORNING AND EVENING FOR 14 DAYS clotrimazol e-betametha sone 1 %-0.05 % topical cream APPLY TO AFFECTED AREA(S) AND SURROUNDING AREA OF THE SKIN TWICE DAILY EVERY MORNING AND EVENING FOR 14 DAYS No clotrimazo le-betamet hasone 1 %-0.05 % topical cream APPLY TO AFFECTED AREA(S) AND SURROUNDIN G AREA OF THE SKIN TWICE DAILY EVERY MORNING AND EVENING FOR 14 DAYS [facility] diclofenac 1 % topical gel APPLY 4 GRAMS TOPICALLY TO AFFECTED AREA ( ANKLE AND FOOT ) 4 TIMES DAILY diclofenac 1 % topical gel APPLY 4 GRAMS TOPICALLY TO AFFECTED AREA ( ANKLE AND FOOT ) 4 TIMES DAILY No diclofenac 1 % topical gel APPLY 4 GRAMS TOPICALLY TO AFFECTED AREA ( ANKLE AND FOOT ) 4 TIMES DAILY [facility] digoxin 125 mcg (0.125 mg) tablet TAKE 1 TABLET BY MOUTH ONCE DAILY digoxin 125 mcg (0.125 mg) tablet TAKE 1 TABLET BY MOUTH ONCE DAILY No digoxin 125 mcg (0.125 mg) tablet TAKE 1 TABLET BY MOUTH ONCE DAILY [facility] Euthyrox 88 mcg tablet Euthyrox 88 mcg tablet No Euthyrox 88 mcg tablet [facility] famotidine 20 mg tablet RX by other famotidine 20 mg tablet RX by other No famotidine 20 mg tablet RX by other MD Duong [facility] hydrochloro thiazide 25 mg tablet TAKE 1 TABLET BY MOUTH ONCE DAILY hydrochloro thiazide 25 mg tablet TAKE 1 TABLET BY MOUTH ONCE DAILY No hydrochlor othiazide 25 mg tablet TAKE 1 TABLET BY MOUTH ONCE DAILY [facility] irbesartan 150 mg tablet irbesartan 150 mg tablet No irbesartan 150 mg tablet [facility] levofloxaci n 500 mg tablet levofloxaci n 500 mg tablet No levofloxac in 500 mg tablet [facility] levothyroxi ne 100 mcg tablet levothyroxi ne 100 mcg tablet No levothyrox ine 100 mcg tablet [facility] levothyroxi ne 75 mcg tablet RX by other MD levothyroxi ne 75 mcg tablet RX by other MD No levothyrox ine 75 mcg tablet RX by other MD [facility] losartan 100 mg tablet TAKE 1 TABLET BY MOUTH ONCE DAILY losartan 100 mg tablet TAKE 1 TABLET BY MOUTH ONCE DAILY No losartan 100 mg tablet TAKE 1 TABLET BY MOUTH ONCE DAILY [facility] memantine 10 mg tablet TAKE 1 TABLET BY MOUTH ONCE DAILY memantine 10 mg tablet TAKE 1 TABLET BY MOUTH ONCE DAILY No memantine 10 mg tablet TAKE 1 TABLET BY MOUTH ONCE DAILY [facility] memantine 5 mg tablet TAKE 1 TABLET BY MOUTH ONCE DAILY memantine 5 mg tablet TAKE 1 TABLET BY MOUTH ONCE DAILY No memantine 5 mg tablet TAKE 1 TABLET BY MOUTH ONCE DAILY [facility] nebivolol 10 mg tablet TAKE 1 TABLET BY MOUTH ONCE DAILY nebivolol 10 mg tablet TAKE 1 TABLET BY MOUTH ONCE DAILY No nebivolol 10 mg tablet TAKE 1 TABLET BY MOUTH ONCE DAILY [facility] nebivolol 20 mg tablet nebivolol 20 mg tablet No nebivolol 20 mg tablet [facility] nitrofurant oin monohydrate /macrocryst als 100 mg capsule nitrofurant oin monohydrate /macrocryst als 100 mg capsule No nitrofuran toin monohydrat e/macrocry stals 100 mg capsule [facility] pantoprazol e 40 mg tablet,cb yed release TAKE 1 TABLET BY MOUTH TWICE DAILY pantoprazol e 40 mg tablet,cb yed release TAKE 1 TABLET BY MOUTH TWICE DAILY No pantoprazo le 40 mg tablet,del ayed release TAKE 1 TABLET BY MOUTH TWICE DAILY [facility] sertraline 25 mg tablet sertraline 25 mg tablet No sertraline 25 mg tablet [facility] triamcinolo ne acetonide 0.1 % topical cream APPLY THIN LAYER TO AFFECTED AREA TWICE DAILY NEEDED triamcinolo ne acetonide 0.1 % topical cream APPLY THIN LAYER TO AFFECTED AREA TWICE DAILY NEEDED No triamcinol one acetonide 0.1 % topical cream APPLY THIN LAYER TO AFFECTED AREA TWICE DAILY NEEDED [facility] valsartan 80 mg tablet RX by other valsartan 80 mg tablet RX by other MD Aguilar valsartan 80 mg tablet RX by other MD [facility] Xarelto 20 mg tablet RX by other Xarelto 20 mg tablet RX by other MD Aguilar Xarelto 20 mg tablet RX by other MD [facility] aspirin 80 mg tablet Take by oral route. aspirin 80 mg tablet Take by oral route. No aspirin 80 mg tablet Take by oral route. [facility] Digox 125 mcg (0.125 mg) tablet Take 1 tablet by oral route. Digox 125 mcg (0.125 mg) tablet Take 1 tablet by oral route. No 1 Digox 125 mcg (0.125 mg) tablet Take 1 tablet by oral route. [facility] Namenda 5 mg tablet Take 1 tablet every day by oral route. Namenda 5 mg tablet Take 1 tablet every day by oral route. No 1 Q1D Namenda 5 mg tablet Take 1 tablet every day by oral route. [facility] nebivolol 20 mg tablet Take 1 tablet every day by oral route. nebivolol 20 mg tablet Take 1 tablet every day by oral route. No 1 Q1D nebivolol 20 mg tablet Take 1 tablet every day by oral route. [facility] ciprofloxac in 500 mg tablet Take 1 tablet every 12 hours by oral route for 10 days. ciprofloxac in 500 mg tablet Take 1 tablet every 12 hours by oral route for 10 days. No 1 Q12H ciprofloxa jacqueline 500 mg tablet Take 1 tablet every 12 hours by oral route for 10 days. [facility] irbesartan 150 mg tablet irbesartan 150 mg tablet No irbesartan 150 mg tablet [facility] memantine 10 mg tablet TAKE 1 TABLET BY MOUTH ONCE DAILY memantine 10 mg tablet TAKE 1 TABLET BY MOUTH ONCE DAILY No memantine 10 mg tablet TAKE 1 TABLET BY MOUTH ONCE DAILY [facility] Pepcid 20 mg tablet Take 1 tablet twice a day by oral route for 30 days. Pepcid 20 mg tablet Take 1 tablet twice a day by oral route for 30 days. No 1 BID Pepcid 20 mg tablet Take 1 tablet twice a day by oral route for 30 days. [facility] Synthroid 75 mcg tablet Take 1 tablet every day by oral route. Synthroid 75 mcg tablet Take 1 tablet every day by oral route. No 1 Q1D Synthroid 75 mcg tablet Take 1 tablet every day by oral route. [facility] meclizine 25 mg tablet meclizine 25 mg tablet No meclizine 25 mg tablet [facility] Multi Vitamin 1 daily Multi Vitamin 1 daily No Multi Vitamin 1 daily [facility] olmesartan 20 mg tablet olmesartan 20 mg tablet No olmesartan 20 mg tablet [facility] [place] 3-6-9 1,200 mg capsule Take 1 capsule every day by oral route. [place] 3-6-9 1,200 mg capsule Take 1 capsule every day by oral route. No 1capsul e(s) Q1D [place] 3-6-9 1,200 mg capsule Take 1 capsule every day by oral route. [facility] Oyster Shell Calcium 500 2 at bedtime Oyster Shell Calcium 500 2 at bedtime No Oyster Shell Calcium 500 2 at bedtime [facility] Elliott Oil 1,000 mg capsule Take 1 capsule every day by oral route. [employer] 1,000 mg capsule Take 1 capsule every day by oral route. No 1capsul e(s) Q1D [employer] 1,000 mg capsule Take 1 capsule every day by oral route. [facility] Restasis 0.05 % eye drops in a dropperette Restasis 0.05 % eye drops in a dropperette No Restasis 0.05 % eye drops in a dropperett e [facility] triamcinolo ne acetonide 0.1 % topical cream triamcinolo ne acetonide 0.1 % topical cream No triamcinol one acetonide 0.1 % topical cream [facility] Xarelto 20 mg tablet Take 1 tablet every day by oral route for 30 days. Xarelto 20 mg tablet Take 1 tablet every day by oral route for 30 days. No Xarelto 20 mg tablet Take 1 tablet every day by oral route for 30 days. [facility] Jodie Allergy 180 mg tablet Take 1 tablet every day by oral route. Jodie Allergy 180 mg tablet Take 1 tablet every day by oral route. No 1 Q1D [facility]odie Allergy 180 mg tablet Take 1 tablet every day by oral route. [facility] allopurinol 300 mg tablet TAKE 1 TABLET BY MOUTH ONCE DAILY allopurinol 300 mg tablet TAKE 1 TABLET BY MOUTH ONCE DAILY No allopurino l 300 mg tablet TAKE 1 TABLET BY MOUTH ONCE DAILY [facility] Arthritis Pain Relief (acetam) 650mg daily Arthritis Pain Relief (acetam) 650mg daily No Arthritis Pain Relief (acetam) 650mg daily [facility] Aspir-81 mg tablet,cb yed release Take 1 tablet every day by oral route. Aspir-81 mg tablet,cb yed release Take 1 tablet every day by oral route. No 1 Q1D Aspir-81 mg tablet,del ayed release Take 1 tablet every day by oral route. [facility] Borage 1200 daily Borage 1200 daily No Borage 1200 daily [facility] cefuroxime axetil 500 mg tablet Take 1 tablet every 12 hours by oral route. cefuroxime axetil 500 mg tablet Take 1 tablet every 12 hours by oral route. No cefuroxime axetil 500 mg tablet Take 1 tablet every 12 hours by oral route. [facility] clotrimazol e-betametha sone 1 %-0.05 % topical cream APPLY TO AFFECTED AREA(S) AND SURROUNdING AREA OF SKIN TWICE DAILY EVERY MORNING AND EVERY EVENING FOR 2 WEEKS clotrimazol e-betametha sone 1 %-0.05 % topical cream APPLY TO AFFECTED AREA(S) AND SURROUNdING AREA OF SKIN TWICE DAILY EVERY MORNING AND EVERY EVENING FOR 2 WEEKS No clotrimazo le-betamet hasone 1 %-0.05 % topical cream APPLY TO AFFECTED AREA(S) AND SURROUNdIN G AREA OF SKIN TWICE DAILY EVERY MORNING AND EVERY EVENING FOR 2 WEEKS [facility] diazepam 2 mg tablet Take 1 tablet 3 times a day by oral route for 15 days. diazepam 2 mg tablet Take 1 tablet 3 times a day by oral route for 15 days. No 1 TID diazepam 2 mg tablet Take 1 tablet 3 times a day by oral route for 15 days. [facility] diclofenac 1 % topical gel APPLY 4 GRAMS TO THE AFFECTED AREA (ANKLE AND FOOT) FOUR TIMES DAILY diclofenac 1 % topical gel APPLY 4 GRAMS TO THE AFFECTED AREA (ANKLE AND FOOT) FOUR TIMES DAILY No diclofenac 1 % topical gel APPLY 4 GRAMS TO THE AFFECTED AREA (ANKLE AND FOOT) FOUR TIMES DAILY [facility] folic acid 400 mcg daily folic acid 400 mcg daily No folic acid 400 mcg daily [facility] Hair, Skin and Nails Advanced Hair, Skin and Nails Advanced No Hair, Skin and Nails Advanced [facility] hydrochloro thiazide 25 mg tablet hydrochloro thiazide 25 mg tablet No hydrochlor othiazide 25 mg tablet [facility] levothyroxi ne 75 mcg tablet TAKE 1 TABLET BY MOUTH EVERY DAY levothyroxi ne 75 mcg tablet TAKE 1 TABLET BY MOUTH EVERY DAY No levothyrox ine 75 mcg tablet TAKE 1 TABLET BY MOUTH EVERY DAY [facility] losartan 100 mg tablet TAKE 1 TABLET BY MOUTH EVERY DAY losartan 100 mg tablet TAKE 1 TABLET BY MOUTH EVERY DAY No losartan 100 mg tablet TAKE 1 TABLET BY MOUTH EVERY DAY [facility] magnesium 250 mg tablet Take 1 tablet every day by oral route. magnesium 250 mg tablet Take 1 tablet every day by oral route. No 1 Q1D magnesium 250 mg tablet Take 1 tablet every day by oral route. [facility] meclizine 25 mg tablet Take 1 tablet 3 times a day by oral route. meclizine 25 mg tablet Take 1 tablet 3 times a day by oral route. No meclizine 25 mg tablet Take 1 tablet 3 times a day by oral route. [facility] metronidazo le 500 mg tablet Take 1 tablet every 8 hours by oral route. start after the stool specimen is turned in metronidazo le 500 mg tablet Take 1 tablet every 8 hours by oral route. start after the stool specimen is turned in No 1 Q8H metronidaz ole 500 mg tablet Take 1 tablet every 8 hours by oral route. start after the stool specimen is turned in [facility] Multi Vitamin 1 daily Multi Vitamin 1 daily No Multi Vitamin 1 daily [facility] nebivolol 10 mg tablet Take 1 tablet every day by oral route for 30 days. nebivolol 10 mg tablet Take 1 tablet every day by oral route for 30 days. No nebivolol 10 mg tablet Take 1 tablet every day by oral route for 30 days. [facility] olmesartan 20 mg tablet olmesartan 20 mg tablet No olmesartan 20 mg tablet [facility] [place] 3-6-9 1,200 mg capsule Take 1 capsule every day by oral route. [place] 3-6-9 1,200 mg capsule Take 1 capsule every day by oral route. No 1capsul e(s) Q1D [place] 3-6-9 1,200 mg capsule Take 1 capsule every day by oral route. [facility] ondansetron HCl 4 mg tablet ondansetron HCl 4 mg tablet No ondansetro n HCl 4 mg tablet [facility] Oyster Shell Calcium 500 2 at bedtime Oyster Shell Calcium 500 2 at bedtime No Oyster Shell Calcium 500 2 at bedtime [facility] [employer] 1,000 mg capsule Take 1 capsule every day by oral route. [employer] 1,000 mg capsule Take 1 capsule every day by oral route. No 1capsul e(s) Q1D Elliott Oil 1,000 mg capsule Take 1 capsule every day by oral route. [facility] Restasis 0.05 % eye drops in a dropperette Restasis 0.05 % eye drops in a dropperette No Restasis 0.05 % eye drops in a dropperett e [facility] triamcinolo ne acetonide 0.1 % topical cream triamcinolo ne acetonide 0.1 % topical cream No triamcinol one acetonide 0.1 % topical cream [facility] Xarelto 20 mg tablet Take 1 tablet every day by oral route for 30 days. Xarelto 20 mg tablet Take 1 tablet every day by oral route for 30 days. No Xarelto 20 mg tablet Take 1 tablet every day by oral route for 30 days. [facility] amoxicillin 500 mg capsule amoxicillin 500 mg capsule No amoxicilli n 500 mg capsule [facility] Medrol (Romel) 4 mg tablets in a dose pack Take 1 dose pk by oral route as directed. Medrol (Romel) 4 mg tablets in a dose pack Take 1 dose pk by oral route as directed. No 1dose pk(s) Medrol (Romel) 4 mg tablets in a dose pack Take 1 dose pk by oral route as directed. [facility] Zithromax Z-Romel 250 mg tablet TAKE 2 TABLETS (500 MG) BY ORAL ROUTE ONCE DAILY FOR 1 DAY THEN 1 TABLET (250 MG) BY ORAL ROUTE ONCE DAILY FOR 4 DAYS Zithromax Z-Romel 250 mg tablet TAKE 2 TABLETS (500 MG) BY ORAL ROUTE ONCE DAILY FOR 1 DAY THEN 1 TABLET (250 MG) BY ORAL ROUTE ONCE DAILY FOR 4 DAYS No Zithromax Z-Romel 250 mg tablet TAKE 2 TABLETS (500 MG) BY ORAL ROUTE ONCE DAILY FOR 1 DAY THEN 1 TABLET (250 MG) BY ORAL ROUTE ONCE DAILY FOR 4 DAYS [facility] Jodie Allergy 180 mg tablet Take 1 tablet every day by oral route. Jodie Allergy 180 mg tablet Take 1 tablet every day by oral route. No 1 Q1D Jodie Allergy 180 mg tablet Take 1 tablet every day by oral route. [facility] allopurinol 300 mg tablet TAKE 1 TABLET BY MOUTH ONCE DAILY allopurinol 300 mg tablet TAKE 1 TABLET BY MOUTH ONCE DAILY No allopurino l 300 mg tablet TAKE 1 TABLET BY MOUTH ONCE DAILY [facility] Aspir-81 mg tablet,cb yed release Take 1 tablet every day by oral route. Aspir-81 mg tablet,cb yed release Take 1 tablet every day by oral route. No 1 Q1D Aspir-81 mg tablet,del ayed release Take 1 tablet every day by oral route. [facility] Borage 1200 daily Borage 1200 daily No Borage 1200 daily [facility] clotrimazol e-betametha sone 1 %-0.05 % topical cream APPLY TO AFFECTED AREA(S) AND SURROUNDING AREA OF THE SKIN TWICE DAILY EVERY MORNING AND EVENING FOR 14 DAYS clotrimazol e-betametha sone 1 %-0.05 % topical cream APPLY TO AFFECTED AREA(S) AND SURROUNDING AREA OF THE SKIN TWICE DAILY EVERY MORNING AND EVENING FOR 14 DAYS No clotrimazo le-betamet hasone 1 %-0.05 % topical cream APPLY TO AFFECTED AREA(S) AND SURROUNDIN G AREA OF THE SKIN TWICE DAILY EVERY MORNING AND EVENING FOR 14 DAYS [facility] diazepam 2 mg tablet Take 1 tablet 3 times a day by oral route for 15 days. diazepam 2 mg tablet Take 1 tablet 3 times a day by oral route for 15 days. No 1 TID diazepam 2 mg tablet Take 1 tablet 3 times a day by oral route for 15 days. [facility] diclofenac 1 % topical gel APPLY 4 GRAMS TOPICALLY TO AFFECTED AREA ( ANKLE AND FOOT ) 4 TIMES DAILY diclofenac 1 % topical gel APPLY 4 GRAMS TOPICALLY TO AFFECTED AREA ( ANKLE AND FOOT ) 4 TIMES DAILY No diclofenac 1 % topical gel APPLY 4 GRAMS TOPICALLY TO AFFECTED AREA ( ANKLE AND FOOT ) 4 TIMES DAILY [facility] folic acid 400 mcg daily folic acid 400 mcg daily No folic acid 400 mcg daily [facility] Hair, Skin and Nails Advanced Hair, Skin and Nails Advanced No Hair, Skin and Nails Advanced [facility] hydrochloro thiazide 25 mg tablet TAKE 1 TABLET BY MOUTH ONCE DAILY hydrochloro thiazide 25 mg tablet TAKE 1 TABLET BY MOUTH ONCE DAILY No hydrochlor othiazide 25 mg tablet TAKE 1 TABLET BY MOUTH ONCE DAILY [facility] levothyroxi ne 75 mcg tablet TAKE 1 TABLET BY MOUTH DAILY levothyroxi ne 75 mcg tablet TAKE 1 TABLET BY MOUTH DAILY No levothyrox ine 75 mcg tablet TAKE 1 TABLET BY MOUTH DAILY [facility] losartan 100 mg tablet TAKE 1 TABLET BY MOUTH ONCE DAILY losartan 100 mg tablet TAKE 1 TABLET BY MOUTH ONCE DAILY No losartan 100 mg tablet TAKE 1 TABLET BY MOUTH ONCE DAILY [facility] magnesium 250 mg tablet Take 1 tablet every day by oral route. magnesium 250 mg tablet Take 1 tablet every day by oral route. No 1 Q1D magnesium 250 mg tablet Take 1 tablet every day by oral route. [facility] meclizine 25 mg tablet Take 1 tablet 3 times a day by oral route. meclizine 25 mg tablet Take 1 tablet 3 times a day by oral route. No meclizine 25 mg tablet Take 1 tablet 3 times a day by oral route. [facility] Multi Vitamin 1 daily Multi Vitamin 1 daily No Multi Vitamin 1 daily [facility] nebivolol 10 mg tablet TAKE 1 TABLET BY MOUTH ONCE DAILY nebivolol 10 mg tablet TAKE 1 TABLET BY MOUTH ONCE DAILY No nebivolol 10 mg tablet TAKE 1 TABLET BY MOUTH ONCE DAILY [facility] olmesartan 20 mg tablet olmesartan 20 mg tablet No olmesartan 20 mg tablet [facility] [place] 3-6-9 1,200 mg capsule Take 1 capsule every day by oral route. [place] 3-6-9 1,200 mg capsule Take 1 capsule every day by oral route. No 1capsul e(s) Q1D [place] 3-6-9 1,200 mg capsule Take 1 capsule every day by oral route. [facility] ondansetron HCl 4 mg tablet ondansetron HCl 4 mg tablet No ondansetro n HCl 4 mg tablet [facility] Oyster Shell Calcium 500 2 at bedtime Oyster Shell Calcium 500 2 at bedtime No Oyster Shell Calcium 500 2 at bedtime [facility] Elliott Oil 1,000 mg capsule Take 1 capsule every day by oral route. Elliott Oil 1,000 mg capsule Take 1 capsule every day by oral route. No 1capsul e(s) Q1D [employer] Oil 1,000 mg capsule Take 1 capsule every day by oral route. [facility] Restasis 0.05 % eye drops in a dropperette Restasis 0.05 % eye drops in a dropperette No Restasis 0.05 % eye drops in a dropperett e [facility] triamcinolo ne acetonide 0.1 % topical cream APPLY THIN LAYER TO AFFECTED AREA TWICE DAILY NEEDED triamcinolo ne acetonide 0.1 % topical cream APPLY THIN LAYER TO AFFECTED AREA TWICE DAILY NEEDED No triamcinol one acetonide 0.1 % topical cream APPLY THIN LAYER TO AFFECTED AREA TWICE DAILY NEEDED [facility] Xarelto 20 mg tablet TAKE 1 TABLET BY MOUTH ONCE DAILY Xarelto 20 mg tablet TAKE 1 TABLET BY MOUTH ONCE DAILY No Xarelto 20 mg tablet TAKE 1 TABLET BY MOUTH ONCE DAILY [facility] digoxin 125 mcg (0.125 mg) tablet TAKE 1 TABLET BY MOUTH ONCE DAILY digoxin 125 mcg (0.125 mg) tablet TAKE 1 TABLET BY MOUTH ONCE DAILY No digoxin 125 mcg (0.125 mg) tablet TAKE 1 TABLET BY MOUTH ONCE DAILY [facility] pantoprazol e 40 mg tablet,cb yed release TAKE 1 TABLET BY MOUTH TWICE DAILY pantoprazol e 40 mg tablet,cb yed release TAKE 1 TABLET BY MOUTH TWICE DAILY No pantoprazo le 40 mg tablet,del ayed release TAKE 1 TABLET BY MOUTH TWICE DAILY [facility] Jodie Allergy 180 mg tablet Take 1 tablet every day by oral route. Jodie Allergy 180 mg tablet Take 1 tablet every day by oral route. No 1 Q1D Jodie Allergy 180 mg tablet Take 1 tablet every day by oral route. [facility] allopurinol 300 mg tablet TAKE 1 TABLET BY MOUTH ONCE DAILY allopurinol 300 mg tablet TAKE 1 TABLET BY MOUTH ONCE DAILY No allopurino l 300 mg tablet TAKE 1 TABLET BY MOUTH ONCE DAILY [facility] Borage 1200 daily Borage 1200 daily No Borage 1200 daily [facility] cefuroxime axetil 500 mg tablet Take 1 tablet every 12 hours by oral route. cefuroxime axetil 500 mg tablet Take 1 tablet every 12 hours by oral route. No cefuroxime axetil 500 mg tablet Take 1 tablet every 12 hours by oral route. [facility] digoxin 125 mcg (0.125 mg) tablet TAKE 1 TABLET BY MOUTH ONCE DAILY digoxin 125 mcg (0.125 mg) tablet TAKE 1 TABLET BY MOUTH ONCE DAILY No digoxin 125 mcg (0.125 mg) tablet TAKE 1 TABLET BY MOUTH ONCE DAILY [facility] Euthyrox 88 mcg tablet Take 1 tablet by mouth once daily for 30 days Euthyrox 88 mcg tablet Take 1 tablet by mouth once daily for 30 days No Euthyrox 88 mcg tablet Take 1 tablet by mouth once daily for 30 days [facility] folic acid 400 mcg daily folic acid 400 mcg daily No folic acid 400 mcg daily [facility] Hair, Skin and Nails Advanced Hair, Skin and Nails Advanced No Hair, Skin and Nails Advanced [facility] hydrochloro thiazide 25 mg tablet TAKE 1 TABLET BY MOUTH ONCE DAILY hydrochloro thiazide 25 mg tablet TAKE 1 TABLET BY MOUTH ONCE DAILY No hydrochlor othiazide 25 mg tablet TAKE 1 TABLET BY MOUTH ONCE DAILY [facility] levothyroxi ne 75 mcg tablet TAKE 1 TABLET BY MOUTH DAILY levothyroxi ne 75 mcg tablet TAKE 1 TABLET BY MOUTH DAILY No levothyrox ine 75 mcg tablet TAKE 1 TABLET BY MOUTH DAILY [facility] losartan 100 mg tablet TAKE 1 TABLET BY MOUTH ONCE DAILY losartan 100 mg tablet TAKE 1 TABLET BY MOUTH ONCE DAILY No losartan 100 mg tablet TAKE 1 TABLET BY MOUTH ONCE DAILY [facility] magnesium 250 mg tablet Take 1 tablet every day by oral route. magnesium 250 mg tablet Take 1 tablet every day by oral route. No 1 Q1D magnesium 250 mg tablet Take 1 tablet every day by oral route. [facility] memantine 5 mg tablet TAKE 1 TABLET BY MOUTH ONCE DAILY memantine 5 mg tablet TAKE 1 TABLET BY MOUTH ONCE DAILY No memantine 5 mg tablet TAKE 1 TABLET BY MOUTH ONCE DAILY [facility] Multi Vitamin 1 daily Multi Vitamin 1 daily No Multi Vitamin 1 daily [facility] nebivolol 20 mg tablet nebivolol 20 mg tablet No nebivolol 20 mg tablet [facility] [place] 3-6-9 1,200 mg capsule Take 1 capsule every day by oral route. [place] 3-6-9 1,200 mg capsule Take 1 capsule every day by oral route. No 1capsul e(s) Q1D [place] 3-6-9 1,200 mg capsule Take 1 capsule every day by oral route. [facility] ondansetron HCl 4 mg tablet ondansetron HCl 4 mg tablet No ondansetro n HCl 4 mg tablet [facility] Oyster Shell Calcium 500 2 at bedtime Oyster Shell Calcium 500 2 at bedtime No Oyster Shell Calcium 500 2 at bedtime [facility] pantoprazol e 40 mg tablet,cb yed release Take 1 tablet twice a day by oral route for 30 days. pantoprazol e 40 mg tablet,cb yed release Take 1 tablet twice a day by oral route for 30 days. No pantoprazo le 40 mg tablet,del ayed release Take 1 tablet twice a day by oral route for 30 days. [facility] Elliott Oil 1,000 mg capsule Take 1 capsule every day by oral route. [employer] 1,000 mg capsule Take 1 capsule every day by oral route. No 1capsul e(s) Q1D [employer] Oil 1,000 mg capsule Take 1 capsule every day by oral route. [facility] Restasis 0.05 % eye drops in a dropperette Restasis 0.05 % eye drops in a dropperette No Restasis 0.05 % eye drops in a dropperett e [facility] sertraline 25 mg tablet Take 1 tablet every day by oral route. sertraline 25 mg tablet Take 1 tablet every day by oral route. No 1 Q1D sertraline 25 mg tablet Take 1 tablet every day by oral route. [facility] folic acid 400 mcg daily folic acid 400 mcg daily No folic acid 400 mcg daily [facility] Hair, Skin and Nails Advanced Hair, Skin and Nails Advanced No Hair, Skin and Nails Advanced [facility] irbesartan 150 mg tablet Take 1 tablet every day by oral route. irbesartan 150 mg tablet Take 1 tablet every day by oral route. No 1 Q1D irbesartan 150 mg tablet Take 1 tablet every day by oral route. [facility] levothyroxi ne 100 mcg tablet Take 1 tablet every day by oral route. levothyroxi ne 100 mcg tablet Take 1 tablet every day by oral route. No levothyrox ine 100 mcg tablet Take 1 tablet every day by oral route. [facility] Macrobid 100 mg capsule Take 1 capsule every day by oral route. Macrobid 100 mg capsule Take 1 capsule every day by oral route. No 1capsul e(s) Q1D Macrobid 100 mg capsule Take 1 capsule every day by oral route. [facility] memantine 10 mg tablet Take 1 tablet every day by oral route. memantine 10 mg tablet Take 1 tablet every day by oral route. No 1 Q1D memantine 10 mg tablet Take 1 tablet every day by oral route. [facility] nebivolol 20 mg tablet nebivolol 20 mg tablet No nebivolol 20 mg tablet [facility] Oyster Shell Calcium 500 2 at bedtime Oyster Shell Calcium 500 2 at bedtime No Oyster Shell Calcium 500 2 at bedtime [facility] pantoprazol e 40 mg tablet,cb yed release Take 1 tablet twice a day by oral route for 30 days. pantoprazol e 40 mg tablet,cb yed release Take 1 tablet twice a day by oral route for 30 days. No pantoprazo le 40 mg tablet,del ayed release Take 1 tablet twice a day by oral route for 30 days. [facility] sertraline 25 mg tablet Take 1 tablet every day by oral route. sertraline 25 mg tablet Take 1 tablet every day by oral route. No sertraline 25 mg tablet Take 1 tablet every day by oral route. [facility] folic acid 400 mcg daily folic acid 400 mcg daily No folic acid 400 mcg daily [facility] Hair, Skin and Nails Advanced Hair, Skin and Nails Advanced No Hair, Skin and Nails Advanced [facility] irbesartan 150 mg tablet Take 1 tablet every day by oral route. irbesartan 150 mg tablet Take 1 tablet every day by oral route. No 1 Q1D irbesartan 150 mg tablet Take 1 tablet every day by oral route. [facility] levothyroxi ne 100 mcg tablet Take 1 tablet every day by oral route. levothyroxi ne 100 mcg tablet Take 1 tablet every day by oral route. No levothyrox ine 100 mcg tablet Take 1 tablet every day by oral route. [facility] Macrobid 100 mg capsule Take 1 capsule every day by oral route. Macrobid 100 mg capsule Take 1 capsule every day by oral route. No 1capsul e(s) Q1D Macrobid 100 mg capsule Take 1 capsule every day by oral route. [facility] memantine 10 mg tablet Take 1 tablet every day by oral route. memantine 10 mg tablet Take 1 tablet every day by oral route. No 1 Q1D memantine 10 mg tablet Take 1 tablet every day by oral route. [facility] nebivolol 20 mg tablet nebivolol 20 mg tablet No nebivolol 20 mg tablet [facility] Oyster Shell Calcium 500 2 at bedtime Oyster Shell Calcium 500 2 at bedtime No Oyster Shell Calcium 500 2 at bedtime [facility] pantoprazol e 40 mg tablet,cb yed release Take 1 tablet twice a day by oral route for 30 days. pantoprazol e 40 mg tablet,cb yed release Take 1 tablet twice a day by oral route for 30 days. No pantoprazo le 40 mg tablet,del ayed release Take 1 tablet twice a day by oral route for 30 days. [facility] sertraline 25 mg tablet Take 1 tablet every day by oral route. sertraline 25 mg tablet Take 1 tablet every day by oral route. No sertraline 25 mg tablet Take 1 tablet every day by oral route. [facility] digoxin 125 mcg (0.125 mg) tablet digoxin 125 mcg (0.125 mg) tablet No digoxin 125 mcg (0.125 mg) tablet [facility] folic acid 400 mcg daily folic acid 400 mcg daily No folic acid 400 mcg daily [facility] Hair, Skin and Nails Advanced Hair, Skin and Nails Advanced No Hair, Skin and Nails Advanced [facility] irbesartan 150 mg tablet Take 1 tablet every day by oral route. irbesartan 150 mg tablet Take 1 tablet every day by oral route. No irbesartan 150 mg tablet Take 1 tablet every day by oral route. [facility] levothyroxi ne 100 mcg tablet Take 1 tablet every day by oral route. levothyroxi ne 100 mcg tablet Take 1 tablet every day by oral route. No levothyrox ine 100 mcg tablet Take 1 tablet every day by oral route. [facility] Longs Adult Low Strength ASA 81 mg tablet,cb yed release Take 1 tablet every day by oral route. Longs Adult Low Strength ASA 81 mg tablet,cb yed release Take 1 tablet every day by oral route. No 1 Q1D Longs Adult Low Strength ASA 81 mg tablet,del ayed release Take 1 tablet every day by oral route. [facility] memantine 10 mg tablet TAKE 1 TABLET BY MOUTH ONCE DAILY memantine 10 mg tablet TAKE 1 TABLET BY MOUTH ONCE DAILY No memantine 10 mg tablet TAKE 1 TABLET BY MOUTH ONCE DAILY [facility] nebivolol 20 mg tablet nebivolol 20 mg tablet No nebivolol 20 mg tablet [facility] nitrofurant oin monohydrate /macrocryst als 100 mg capsule Take 1 capsule every day by oral route. nitrofurant oin monohydrate /macrocryst als 100 mg capsule Take 1 capsule every day by oral route. No nitrofuran toin monohydrat e/macrocry stals 100 mg capsule Take 1 capsule every day by oral route. [facility] Oyster Shell Calcium 500 2 at bedtime Oyster Shell Calcium 500 2 at bedtime No Oyster Shell Calcium 500 2 at bedtime [facility] Pepcid 20 mg tablet Take 1 tablet twice a day by oral route. Pepcid 20 mg tablet Take 1 tablet twice a day by oral route. No 1 BID Pepcid 20 mg tablet Take 1 tablet twice a day by oral route. [facility] sertraline 25 mg tablet Take 1 tablet every day by oral route. sertraline 25 mg tablet Take 1 tablet every day by oral route. No sertraline 25 mg tablet Take 1 tablet every day by oral route. [facility] Jodie Allergy 180 mg tablet Take 1 tablet every day by oral route. Jodie Allergy 180 mg tablet Take 1 tablet every day by oral route. No 1 Q1D Jodie Allergy 180 mg tablet Take 1 tablet every day by oral route. [facility] amoxicillin 500 mg capsule TAKE FOUR CAPSULES BY MOUTH ONE HOUR BEFORE APPOINTMENT amoxicillin 500 mg capsule TAKE FOUR CAPSULES BY MOUTH ONE HOUR BEFORE APPOINTMENT No amoxicilli n 500 mg capsule TAKE FOUR CAPSULES BY MOUTH ONE HOUR BEFORE APPOINTMEN T [facility] digoxin 125 mcg (0.125 mg) tablet TAKE 1 TABLET BY MOUTH ONCE DAILY digoxin 125 mcg (0.125 mg) tablet TAKE 1 TABLET BY MOUTH ONCE DAILY No digoxin 125 mcg (0.125 mg) tablet TAKE 1 TABLET BY MOUTH ONCE DAILY [facility] folic acid 400 mcg daily folic acid 400 mcg daily No folic acid 400 mcg daily [facility] Hair, Skin and Nails Advanced Hair, Skin and Nails Advanced No Hair, Skin and Nails Advanced [facility] irbesartan 150 mg tablet Take 1 tablet every day by oral route. irbesartan 150 mg tablet Take 1 tablet every day by oral route. No irbesartan 150 mg tablet Take 1 tablet every day by oral route. [facility] levothyroxi ne 88 mcg tablet Take 1 tablet by mouth once daily for 30 days levothyroxi ne 88 mcg tablet Take 1 tablet by mouth once daily for 30 days No levothyrox ine 88 mcg tablet Take 1 tablet by mouth once daily for 30 days [facility] Longs Adult Low Strength ASA 81 mg tablet,cb yed release Take 1 tablet every day by oral route. Longs Adult Low Strength ASA 81 mg tablet,cb yed release Take 1 tablet every day by oral route. No 1 Q1D Longs Adult Low Strength ASA 81 mg tablet,del ayed release Take 1 tablet every day by oral route. [facility] meloxicam 7.5 mg tablet Take 1 tablet every day by oral route. meloxicam 7.5 mg tablet Take 1 tablet every day by oral route. No 1 Q1D meloxicam 7.5 mg tablet Take 1 tablet every day by oral route. [facility] memantine 10 mg tablet TAKE 1 TABLET BY MOUTH ONCE DAILY memantine 10 mg tablet TAKE 1 TABLET BY MOUTH ONCE DAILY No memantine 10 mg tablet TAKE 1 TABLET BY MOUTH ONCE DAILY [facility] allopurinol 300 mg tablet TAKE 1 TABLET BY MOUTH ONCE DAILY allopurinol 300 mg tablet TAKE 1 TABLET BY MOUTH ONCE DAILY No allopurino l 300 mg tablet TAKE 1 TABLET BY MOUTH ONCE DAILY [facility] nebivolol 20 mg tablet TAKE 1 TABLET BY MOUTH ONCE DAILY nebivolol 20 mg tablet TAKE 1 TABLET BY MOUTH ONCE DAILY No nebivolol 20 mg tablet TAKE 1 TABLET BY MOUTH ONCE DAILY [facility] nitrofurant oin monohydrate /macrocryst als 100 mg capsule Take 1 capsule every day by oral route. nitrofurant oin monohydrate /macrocryst als 100 mg capsule Take 1 capsule every day by oral route. No nitrofuran toin monohydrat e/macrocry stals 100 mg capsule Take 1 capsule every day by oral route. [facility] Oyster Shell Calcium 500 2 at bedtime Oyster Shell Calcium 500 2 at bedtime No Oyster Shell Calcium 500 2 at bedtime [facility] Pepcid 20 mg tablet Take 1 tablet twice a day by oral route. Pepcid 20 mg tablet Take 1 tablet twice a day by oral route. No 1 BID Pepcid 20 mg tablet Take 1 tablet twice a day by oral route. [facility] sertraline 25 mg tablet Take 1 tablet every day by oral route. sertraline 25 mg tablet Take 1 tablet every day by oral route. No sertraline 25 mg tablet Take 1 tablet every day by oral route. [facility] Arthritis Pain Relief (acetam) 650mg daily Arthritis Pain Relief (acetam) 650mg daily No Arthritis Pain Relief (acetam) 650mg daily [facility] Aspir-81 mg tablet,cb yed release Take 1 tablet every day by oral route. Aspir-81 mg tablet,cb yed release Take 1 tablet every day by oral route. No 1 Q1D Aspir-81 mg tablet,del ayed release Take 1 tablet every day by oral route. [facility] digoxin 125 mcg (0.125 mg) tablet Take 1 tablet every day by oral route. digoxin 125 mcg (0.125 mg) tablet Take 1 tablet every day by oral route. No digoxin 125 mcg (0.125 mg) tablet Take 1 tablet every day by oral route. [facility] Eliquis 2.5 mg tablet Take 1 tablet twice a day by oral route. Eliquis 2.5 mg tablet Take 1 tablet twice a day by oral route. No 1 BID Eliquis 2.5 mg tablet Take 1 tablet twice a day by oral route. [facility] atorvastati n 40 mg tablet TAKE 1 TABLET BY MOUTH EVERY DAY atorvastati n 40 mg tablet TAKE 1 TABLET BY MOUTH EVERY DAY No atorvastat in 40 mg tablet TAKE 1 TABLET BY MOUTH EVERY DAY [facility] folic acid 400 mcg daily folic acid 400 mcg daily No folic acid 400 mcg daily [facility] Hair, Skin and Nails Advanced Hair, Skin and Nails Advanced No Hair, Skin and Nails Advanced [facility] irbesartan 150 mg tablet TAKE 1 TABLET BY MOUTH ONCE DAILY irbesartan 150 mg tablet TAKE 1 TABLET BY MOUTH ONCE DAILY No irbesartan 150 mg tablet TAKE 1 TABLET BY MOUTH ONCE DAILY [facility] levothyroxi ne 88 mcg tablet Take 1 tablet by mouth once daily for 30 days levothyroxi ne 88 mcg tablet Take 1 tablet by mouth once daily for 30 days No levothyrox ine 88 mcg tablet Take 1 tablet by mouth once daily for 30 days [facility] Longs Adult Low Strength ASA 81 mg tablet,cb yed release Take 1 tablet every day by oral route. Longs Adult Low Strength ASA 81 mg tablet,cb yed release Take 1 tablet every day by oral route. No 1 Q1D Longs Adult Low Strength ASA 81 mg tablet,del ayed release Take 1 tablet every day by oral route. [facility] meloxicam 7.5 mg tablet TAKE 1 TABLET BY MOUTH EVERY DAY meloxicam 7.5 mg tablet TAKE 1 TABLET BY MOUTH EVERY DAY No meloxicam 7.5 mg tablet TAKE 1 TABLET BY MOUTH EVERY DAY [facility] memantine 10 mg tablet TAKE 1 TABLET BY MOUTH ONCE DAILY memantine 10 mg tablet TAKE 1 TABLET BY MOUTH ONCE DAILY No memantine 10 mg tablet TAKE 1 TABLET BY MOUTH ONCE DAILY [facility] nebivolol 20 mg tablet TAKE 1 TABLET BY MOUTH ONCE DAILY nebivolol 20 mg tablet TAKE 1 TABLET BY MOUTH ONCE DAILY No nebivolol 20 mg tablet TAKE 1 TABLET BY MOUTH ONCE DAILY [facility] nitrofurant oin monohydrate /macrocryst als 100 mg capsule TAKE 1 CAPSULE BY MOUTH ONCE DAILY nitrofurant oin monohydrate /macrocryst als 100 mg capsule TAKE 1 CAPSULE BY MOUTH ONCE DAILY No nitrofuran toin monohydrat e/macrocry stals 100 mg capsule TAKE 1 CAPSULE BY MOUTH ONCE DAILY [facility] Oyster Shell Calcium 500 2 at bedtime Oyster Shell Calcium 500 2 at bedtime No Oyster Shell Calcium 500 2 at bedtime [facility] Borage 1200 daily Borage 1200 daily No Borage 1200 daily [facility] Pepcid 20 mg tablet Take 1 tablet twice a day by oral route. Pepcid 20 mg tablet Take 1 tablet twice a day by oral route. No 1 BID Pepcid 20 mg tablet Take 1 tablet twice a day by oral route. [facility] sertraline 25 mg tablet TAKE 1 TABLET BY MOUTH ONCE DAILY sertraline 25 mg tablet TAKE 1 TABLET BY MOUTH ONCE DAILY No sertraline 25 mg tablet TAKE 1 TABLET BY MOUTH ONCE DAILY [facility] Bystolic 10 mg tablet Take 1 tablet every day by oral route for 30 days. Bystolic 10 mg tablet Take 1 tablet every day by oral route for 30 days. No Bystolic 10 mg tablet Take 1 tablet every day by oral route for 30 days. [facility] clotrimazol e-betametha sone 1 %-0.05 % topical cream APPLY TO AFFECTED AREA(S) AND SURROUNdING AREA OF SKIN TWICE DAILY EVERY MORNING AND EVERY EVENING FOR 2 WEEKS clotrimazol e-betametha sone 1 %-0.05 % topical cream APPLY TO AFFECTED AREA(S) AND SURROUNdING AREA OF SKIN TWICE DAILY EVERY MORNING AND EVERY EVENING FOR 2 WEEKS No clotrimazo le-betamet hasone 1 %-0.05 % topical cream APPLY TO AFFECTED AREA(S) AND SURROUNdIN G AREA OF SKIN TWICE DAILY EVERY MORNING AND EVERY EVENING FOR 2 WEEKS [facility] ciprofloxac in 500 mg tablet TAKE 1 TABLET BY MOUTH TWICE DAILY FOR 10 DAYS ciprofloxac in 500 mg tablet TAKE 1 TABLET BY MOUTH TWICE DAILY FOR 10 DAYS No ciprofloxa jacqueline 500 mg tablet TAKE 1 TABLET BY MOUTH TWICE DAILY FOR 10 DAYS [facility] digoxin 125 mcg (0.125 mg) tablet TAKE 1 TABLET BY MOUTH 4 days per week digoxin 125 mcg (0.125 mg) tablet TAKE 1 TABLET BY MOUTH 4 days per week No digoxin 125 mcg (0.125 mg) tablet TAKE 1 TABLET BY MOUTH 4 days per week [facility] folic acid 400 mcg daily folic acid 400 mcg daily No folic acid 400 mcg daily [facility] Hair, Skin and Nails Advanced Hair, Skin and Nails Advanced No Hair, Skin and Nails Advanced [facility] irbesartan 150 mg tablet TAKE 1 TABLET BY MOUTH ONCE DAILY irbesartan 150 mg tablet TAKE 1 TABLET BY MOUTH ONCE DAILY No irbesartan 150 mg tablet TAKE 1 TABLET BY MOUTH ONCE DAILY [facility] levothyroxi ne 75 mcg tablet TAKE 1 TABLET BY MOUTH ONCE DAILY levothyroxi ne 75 mcg tablet TAKE 1 TABLET BY MOUTH ONCE DAILY No levothyrox ine 75 mcg tablet TAKE 1 TABLET BY MOUTH ONCE DAILY [facility] Longs Adult Low Strength ASA 81 mg tablet,cb yed release Take 1 tablet every day by oral route. Longs Adult Low Strength ASA 81 mg tablet,cb yed release Take 1 tablet every day by oral route. No 1 Q1D Longs Adult Low Strength ASA 81 mg tablet,del ayed release Take 1 tablet every day by oral route. [facility] memantine 10 mg tablet TAKE 1 TABLET BY MOUTH bid memantine 10 mg tablet TAKE 1 TABLET BY MOUTH bid No memantine 10 mg tablet TAKE 1 TABLET BY MOUTH bid [facility] diclofenac 1 % topical gel APPLY 4 GRAMS TO THE AFFECTED AREA (ANKLE AND FOOT) FOUR TIMES DAILY diclofenac 1 % topical gel APPLY 4 GRAMS TO THE AFFECTED AREA (ANKLE AND FOOT) FOUR TIMES DAILY No diclofenac 1 % topical gel APPLY 4 GRAMS TO THE AFFECTED AREA (ANKLE AND FOOT) FOUR TIMES DAILY [facility] nebivolol 20 mg tablet TAKE 1 TABLET BY MOUTH ONCE DAILY nebivolol 20 mg tablet TAKE 1 TABLET BY MOUTH ONCE DAILY No nebivolol 20 mg tablet TAKE 1 TABLET BY MOUTH ONCE DAILY [facility] nitrofurant oin monohydrate /macrocryst als 100 mg capsule TAKE 1 CAPSULE BY MOUTH ONCE DAILY nitrofurant oin monohydrate /macrocryst als 100 mg capsule TAKE 1 CAPSULE BY MOUTH ONCE DAILY No nitrofuran toin monohydrat e/macrocry stals 100 mg capsule TAKE 1 CAPSULE BY MOUTH ONCE DAILY [facility] Oyster Shell Calcium 500 2 at bedtime Oyster Shell Calcium 500 2 at bedtime No Oyster Shell Calcium 500 2 at bedtime [facility] Pepcid 20 mg tablet Take 1 tablet every day by oral route. Pepcid 20 mg tablet Take 1 tablet every day by oral route. No 1 Q1D Pepcid 20 mg tablet Take 1 tablet every day by oral route. [facility] SB Low Dose ASA EC 81 mg tablet,cb yed release Take 1 tablet every day by oral route. SB Low Dose ASA EC 81 mg tablet,cb yed release Take 1 tablet every day by oral route. No 1 Q1D SB Low Dose ASA EC 81 mg tablet,del ayed release Take 1 tablet every day by oral route. [facility] sertraline 25 mg tablet TAKE 1 TABLET BY MOUTH ONCE DAILY sertraline 25 mg tablet TAKE 1 TABLET BY MOUTH ONCE DAILY No sertraline 25 mg tablet TAKE 1 TABLET BY MOUTH ONCE DAILY [facility] folic acid 400 mcg daily folic acid 400 mcg daily No folic acid 400 mcg daily [facility] Hair, Skin and Nails Advanced Hair, Skin and Nails Advanced No Hair, Skin and Nails Advanced [facility] hydrochloro thiazide 25 mg tablet Take 1 tablet every day by oral route for 30 days. hydrochloro thiazide 25 mg tablet Take 1 tablet every day by oral route for 30 days. No hydrochlor othiazide 25 mg tablet Take 1 tablet every day by oral route for 30 days. [facility] levothyroxi ne 75 mcg tablet TAKE 1 TABLET BY MOUTH EVERY DAY levothyroxi ne 75 mcg tablet TAKE 1 TABLET BY MOUTH EVERY DAY No levothyrox ine 75 mcg tablet TAKE 1 TABLET BY MOUTH EVERY DAY [facility] losartan 100 mg tablet TAKE 1 TABLET BY MOUTH EVERY DAY losartan 100 mg tablet TAKE 1 TABLET BY MOUTH EVERY DAY No losartan 100 mg tablet TAKE 1 TABLET BY MOUTH EVERY DAY [facility] magnesium 250 mg tablet Take 1 tablet every day by oral route. magnesium 250 mg tablet Take 1 tablet every day by oral route. No 1 Q1D magnesium 250 mg tablet Take 1 tablet every day by oral route. [facility] Immunizations Ordered Immunization Name Filled Immunization Name Date Status Comments Source influenza, injectable, quadrivalent, preservative free influenza, injectable, quadrivalent, preservative free 2022-03-18 15:44:28 [facility] influenza, injectable, quadrivalent, preservative free influenza, injectable, quadrivalent, preservative free 2022-03-18 15:44:28 [facility] influenza, injectable, quadrivalent, preservative free influenza, injectable, quadrivalent, preservative free 2022-03-18 15:44:28 [facility] influenza, injectable, quadrivalent, preservative free influenza, injectable, quadrivalent, preservative free 2022-03-18 15:44:28 [facility] influenza, injectable, quadrivalent influenza, injectable, quadrivalent 2021-02-26 00:00:00 [facility] COVID-19 (SARS-COV-2) vaccine, unspecified COVID-19 (SARS-COV-2) vaccine, unspecified 2021-02-26 00:00:00 [facility] influenza, injectable, quadrivalent influenza, injectable, quadrivalent 2021-02-26 00:00:00 [facility] COVID-19 (SARS-COV-2) vaccine, unspecified COVID-19 (SARS-COV-2) vaccine, unspecified 2021-02-26 00:00:00 Completed [facility] influenza, injectable, quadrivalent influenza, injectable, quadrivalent 2021-02-26 00:00:00 Completed [facility] COVID-19 (SARS-COV-2) vaccine, unspecified COVID-19 (SARS-COV-2) vaccine, unspecified 2021-02-26 00:00:00 [facility] influenza, injectable, quadrivalent influenza, injectable, quadrivalent 2021-02-26 00:00:00 Completed [facility] COVID-19 (SARS-COV-2) vaccine, unspecified COVID-19 (SARS-COV-2) vaccine, unspecified 2021-02-26 00:00:00 [facility] influenza, injectable, quadrivalent influenza, injectable, quadrivalent 2021-02-26 00:00:00 Completed [facility] COVID-19 (SARS-COV-2) vaccine, unspecified COVID-19 (SARS-COV-2) vaccine, unspecified 2021-02-26 00:00:00 [facility] influenza, injectable, quadrivalent influenza, injectable, quadrivalent 2021-02-26 00:00:00 [facility] COVID-19 (SARS-COV-2) vaccine, unspecified COVID-19 (SARS-COV-2) vaccine, unspecified 2021-02-26 00:00:00 [facility] influenza, injectable, quadrivalent influenza, injectable, quadrivalent 2021-02-26 00:00:00 Completed [facility] COVID-19 (SARS-COV-2) vaccine, unspecified COVID-19 (SARS-COV-2) vaccine, unspecified 2021-02-26 00:00:00 [facility] influenza, injectable, quadrivalent influenza, injectable, quadrivalent 2021-02-26 00:00:00 Completed [facility] COVID-19 (SARS-COV-2) vaccine, unspecified COVID-19 (SARS-COV-2) vaccine, unspecified 2021-02-26 00:00:00 Completed [facility] SARS-COV-2 (COVID-19) vaccine, UNSPECIFIED SARS-COV-2 (COVID-19) vaccine, UNSPECIFIED 2020-08-30 00:00:00 Completed [facility] COVID-19 (SARS-COV-2) vaccine, unspecified COVID-19 (SARS-COV-2) vaccine, unspecified 2020-08-30 00:00:00 Completed [facility] COVID-19 (SARS-COV-2) vaccine, unspecified COVID-19 (SARS-COV-2) vaccine, unspecified 2020-08-30 00:00:00 Completed [facility] COVID-19 (SARS-COV-2) vaccine, unspecified COVID-19 (SARS-COV-2) vaccine, unspecified 2020-08-30 00:00:00 Completed [facility] COVID-19 (SARS-COV-2) vaccine, unspecified COVID-19 (SARS-COV-2) vaccine, unspecified 2020-08-30 00:00:00 Completed [facility] COVID-19 (SARS-COV-2) vaccine, unspecified COVID-19 (SARS-COV-2) vaccine, unspecified 2020-08-30 00:00:00 Completed [facility] COVID-19 (SARS-COV-2) vaccine, unspecified COVID-19 (SARS-COV-2) vaccine, unspecified 2020-08-30 00:00:00 Completed [facility] COVID-19 (SARS-COV-2) vaccine, unspecified COVID-19 (SARS-COV-2) vaccine, unspecified 2020-08-30 00:00:00 Completed [facility] COVID-19 (SARS-COV-2) vaccine, unspecified COVID-19 (SARS-COV-2) vaccine, unspecified 2020-08-30 00:00:00 Completed [facility] SARS-COV-2 (COVID-19) vaccine, UNSPECIFIED SARS-COV-2 (COVID-19) vaccine, UNSPECIFIED 2020-07-30 00:00:00 Completed [facility] COVID-19 (SARS-COV-2) vaccine, unspecified COVID-19 (SARS-COV-2) vaccine, unspecified 2020-07-30 00:00:00 Completed [facility] COVID-19 (SARS-COV-2) vaccine, unspecified COVID-19 (SARS-COV-2) vaccine, unspecified 2020-07-30 00:00:00 Completed [facility] COVID-19 (SARS-COV-2) vaccine, unspecified COVID-19 (SARS-COV-2) vaccine, unspecified 2020-07-30 00:00:00 Completed [facility] COVID-19 (SARS-COV-2) vaccine, unspecified COVID-19 (SARS-COV-2) vaccine, unspecified 2020-07-30 00:00:00 Completed [facility] COVID-19 (SARS-COV-2) vaccine, unspecified COVID-19 (SARS-COV-2) vaccine, unspecified 2020-07-30 00:00:00 Completed [facility] COVID-19 (SARS-COV-2) vaccine, unspecified COVID-19 (SARS-COV-2) vaccine, unspecified 2020-07-30 00:00:00 Completed [facility] COVID-19 (SARS-COV-2) vaccine, unspecified COVID-19 (SARS-COV-2) vaccine, unspecified 2020-07-30 00:00:00 Completed [facility] COVID-19 (SARS-COV-2) vaccine, unspecified COVID-19 (SARS-COV-2) vaccine, unspecified 2020-07-30 00:00:00 Completed [facility] pneumococcal conjugate PCV 13 pneumococcal conjugate PCV 13 2020-05-14 00:00:00 Completed [facility] pneumococcal conjugate PCV 13 pneumococcal conjugate PCV 13 2020-05-14 00:00:00 Completed [facility] pneumococcal conjugate PCV 13 pneumococcal conjugate PCV 13 2020-05-14 00:00:00 Completed [facility] pneumococcal conjugate PCV 13 pneumococcal conjugate PCV 13 2020-05-14 00:00:00 Completed [facility] pneumococcal conjugate PCV 13 pneumococcal conjugate PCV 13 2020-05-14 00:00:00 Completed [facility] pneumococcal conjugate PCV 13 pneumococcal conjugate PCV 13 2020-05-14 00:00:00 Completed [facility] pneumococcal conjugate PCV 13 pneumococcal conjugate PCV 13 2020-05-14 00:00:00 Completed [facility] pneumococcal conjugate PCV 13 pneumococcal conjugate PCV 13 2020-05-14 00:00:00 Completed [facility] pneumococcal conjugate PCV 13 pneumococcal conjugate PCV 13 2020-05-14 00:00:00 Completed [facility] Tdap Tdap Unknown Completed [facility] influenza, injectable, quadrivalent, preservative free influenza, injectable, quadrivalent, preservative free Unknown Completed [facility] influenza, injectable, quadrivalent influenza, injectable, quadrivalent Unknown Completed [facility] COVID-19 (SARS-COV-2) vaccine, unspecified COVID-19 (SARS-COV-2) vaccine, unspecified Unknown Completed [facility] pneumococcal conjugate PCV 13 pneumococcal conjugate PCV 13 Unknown Completed [facility] Vital Signs Vital Name Observation Time Observation Value Comments S ource BMI (Body Mass Index) 2023-11-13 00:00:00 28.4 kg/m2 [facility] BP Systolic 2023-11-13 00:00:00 149 mm[Hg] [facility] Body Weight 2023-11-13 00:00:00 2568 [oz_av] [facility] BP Diastolic 2023-11-13 00:00:00 96 mm[Hg] [facility] Height 2023-11-13 00:00:00 63 [facility]in[facility] 2023 00:00:00 63 [in_i] [facility] Body Weight 2023 00:00:00 2592 [oz_av] [facility] BMI (Body Mass Index) 2023 00:00:00 28.7 kg/m2 [facility] BP Diastolic 2023 00:00:00 80 mm[Hg] [facility] BP Systolic 2023 00:00:00 125 mm[Hg] [facility] BP Diastolic 2022-12-04 00:00:00 80 mm[Hg] [facility] BP Systolic 2022-12-04 00:00:00 140 mm[Hg] [facility] Body Weight 2022-12-04 00:00:00 2400 [oz_av] [facility] BP Diastolic 2022-08-13 00:00:00 74 mm[Hg] [facility] BP Systolic 2022-08-13 00:00:00 130 mm[Hg] [facility] Body Weight 2022-08-13 00:00:00 2256 [oz_av] [facility] BP Diastolic 2022-04-15 00:00:00 92 mm[Hg] [facility] BP Systolic 2022-04-15 00:00:00 140 mm[Hg] [facility] Body Weight 2022-04-15 00:00:00 2249.6 [oz_av] [facility] BP Diastolic 2022-03-18 00:00:00 80 mm[Hg] [facility] BP Systolic 2022-03-18 00:00:00 140 mm[Hg] [facility] Body Weight 2022-03-18 00:00:00 2272 [oz_av] [facility] BP Diastolic 2022-03-10 00:00:00 92 mm[Hg] [facility] Height 2022-03-10 00:00:00 63 [in_i] [facility] BMI (Body Mass Index) 2022-03-10 00:00:00 25.5 kg/m2 [facility] BP Systolic 2022-03-10 00:00:00 159 mm[Hg] [facility] Body Weight 2022-03-10 00:00:00 2304 [oz_av] [facility] BP Diastolic 2022-02-25 00:00:00 88 mm[Hg] [facility] BP Systolic 2022-02-25 00:00:00 128 mm[Hg] [facility] Body Weight 2022-02-25 00:00:00 2268.8 [oz_av] [facility] BP Diastolic 2021-10-09 00:00:00 70 mm[Hg] [facility] BP Systolic 2021-10-09 00:00:00 160 mm[Hg] [facility] Body Weight 2021-10-09 00:00:00 2601.6 [oz_av] [facility] BP Diastolic 2021-08-28 00:00:00 50 mm[Hg] [facility] BP Systolic 2021-08-28 00:00:00 120 mm[Hg] [facility] Body Weight 2021-08-28 00:00:00 2672 [oz_av] [facility] BP Diastolic 2021-07-29 00:00:00 50 mm[Hg] [facility] BP Systolic 2021-07-29 00:00:00 124 mm[Hg] [facility] Body Weight 2021-07-29 00:00:00 2681.6 [oz_av] [facility] BP Diastolic 2021-05-30 00:00:00 70 mm[Hg] [facility] BP Systolic 2021-05-30 00:00:00 140 mm[Hg] [facility] Body Weight 2021-05-30 00:00:00 2688 [oz_av] [facility] BP Diastolic 2021-04-17 00:00:00 80 mm[Hg] [facility] BP Systolic 2021-04-17 00:00:00 122 mm[Hg] [facility] Body Weight 2021-04-17 00:00:00 2723.2 [oz_av] [facility] BP Diastolic 2021-02-28 00:00:00 75 mm[Hg] [facility] Height 2021-02-28 00:00:00 63 [in_i] [facility] BMI (Body Mass Index) 2021-02-28 00:00:00 30.8 kg/m2 [facility] BP Systolic 2021-02-28 00:00:00 163 mm[Hg] [facility] Body Weight 2021-02-28 00:00:00 173.6 [lb_av] [facility] BP Diastolic 2021-01-23 00:00:00 77 mm[Hg] [facility] Height 2021-01-23 00:00:00 63 [in_i] [facility] BMI (Body Mass Index) 2021-01-23 00:00:00 30.8 kg/m2 [facility] BP Systolic 2021-01-23 00:00:00 169 mm[Hg] [facility] Body Weight 2021-01-23 00:00:00 173.9 [lb_av] [facility] BP Diastolic 2020-12-24 00:00:00 60 mm[Hg] [facility] BP Systolic 2020-12-24 00:00:00 160 mm[Hg] [facility] Body Weight 2020-12-24 00:00:00 2828.8 [oz_av] [facility] BP Diastolic 2020-06-21 00:00:00 68 mm[Hg] [facility] BP Systolic 2020-06-21 00:00:00 140 mm[Hg] [facility] Body Weight 2020-06-21 00:00:00 2841.6 [oz_av] [facility] BP Diastolic 2019-12-16 00:00:00 71 mm[Hg] [facility] Height 2019-12-16 00:00:00 63 [in_i] [facility] BP Systolic 2019-12-16 00:00:00 154 mm[Hg] [facility] BP Diastolic 2019-12-15 00:00:00 70 mm[Hg] [facility] Height 2019-12-15 00:00:00 63 [in_i] [facility] BMI (Body Mass Index) 2019-12-15 00:00:00 30.8 kg/m2 [facility] BP Systolic 2019-12-15 00:00:00 145 mm[Hg] [facility] Body Weight 2019-12-15 00:00:00 2784 [oz_av] [facility] Procedures Procedure Date / Time Performed Performing Clinician Source XR, ankle, 3 or more view 2022-06-10 00:00:[address] [facility], head, w/o contrast 2021-10-09 00:00:00 [facility] Colonoscopy 2021-09-19 00:00:00 [facility] CT, brain, w/o contrast 2021-07-29 00:00:00 [facility] XR, elbow, 2 view 2019-12-16 00:00:00 [facility] Ankle [facility] Cataract [facility] Cholecyst[facility] Plan of Care Planned Activity Planned Date Details Comments Source Diagnostic Test Pending 2022-12-04 00:00:00 CMP, serum or plasma [code = CMP, serum or plasma] [facility] Diagnostic Test Pending 2022-12-04 00:00:00 CBC w/ diff [code = CBC w/ diff] [facility] Diagnostic Test Pending 2022-12-04 00:00:00 TSH + T4, serum [code = TSH + T4, serum] [facility] [facility] Instructions [facility] Encounters Start Date/Time End Date/Time Encounter Type Admission Type Attending Clinicians Care Facility Care Department Encounter ID Source 2023-11-13 16:38:00 2023-11-13 16:38:00 Outpatient DIANA CARMONA [facility] [id number] [facility] 2023-11-13 00:00:00 2023-11-13 00:00:00 FARHAD Myers: [address], [address], [place] [address] , Ph. G [facility] 6[address] [facility] 2023 00:00:00 2023 00:00:00 Silvia Presley MD: [address], [address], [place] [address] , Ph. [facility] - [facility], DR. PRESLEY [id number] [facility] 2023-07-02 10:26:00 2023-07-02 10:26:00 Outpatient SILVIA MUNSON [facility] [id number] [facility] 2023-03-19 12:36:00 2023-03-19 12:36:00 Outpatient SILVIA MUNSON [facility] [id number] [facility] 2022-12-04 00:00:00 2022-12-04 00:00:00 Outpatient FERNANDEZ_Kim [facility] [id number] [facility] 2022-12-04 00:00:00 2022-12-04 00:00:00 Silvia Presley MD: [address], [address], [place] [address] , Ph. [facility], DR. PRESLEY [id number] [facility] 2022-08-18 00:00:00 2022-08-18 00:00:00 Outpatient DEBI_Sebastian_ Zhao_ AO AO [id number] [facility] 2022-08-15 00:00:00 2022-08-15 00:00:00 Outpatient Myrna Gayle AO AO [id number] [facility] 2022-08-13 00:00:00 2022-08-13 00:00:00 Outpatient FERNANDEZ_Kim [facility] [id number] [facility] 2022-08-13 00:00:00 2022-08-13 00:00:00 iSlvia Presley MD: [address], [address], [place] [address] , Ph. [facility], DR. PRESLEY [id number] [facility] 2022-07-11 00:00:00 2022-07-11 00:00:00 Outpatient FOG_Sebastian_ Zhao_ [facility] [id number] [facility] 2022-06-10 00:00:00 2022-06-10 00:00:00 Outpatient FOG_Sebastian_ Zhao_ [facility] [id number] [facility] 2022-06-10 00:00:00 2022-06-10 00:00:00 Zhao Cortes MD: [address] [place] [address] , Ph. [phone] [facility] - [facility] - [facility] [id number] [facility] 2022-06-04 00:00:00 2022-06-04 00:00:00 Outpatient FERNANDEZ_Kim [facility] [id number] [facility] 2022-05-15 08:54:00 2022-05-15 08:54:00 Outpatient SILVIA MUNSON [facility] [id number] [facility] 2022-05-01 00:00:00 2022-05-01 00:00:00 Outpatient FERNANDEZ_Kim [facility] [id number] [facility] 2022-04-30 09:52:00 2022-04-30 09:52:00 Outpatient SILVIA MUNSON [facility] [id number] [facility] 2022-04-15 00:00:00 2022-04-15 00:00:00 Outpatient FERNANDEZ_Kim [facility] [id number] [facility] 2022-04-15 00:00:00 2022-04-15 00:00:00 Silvia Presley MD: [address], [address], [address], [place] [address] , Ph. [facility], DR. PRESLEY [id number] [facility] 2022-03-18 00:00:00 2022-03-18 00:00:00 Outpatient KEFFER_A [facility] [id number] [facility] 2022-03-18 00:00:00 2022-03-18 00:00:00 Silvia Presley MD: [address], [address], [place] [address] , Ph. [facility], DR. PRESLEY [id number] [facility] 2022-03-10 13:20:00 2022-03-10 13:20:00 Outpatient Tommy Anaya [facility] [id number] [facility] 2022-03-10 00:00:00 2022-03-10 00:00:00 Outpatient Samiselma_S [facility] [id number] [facility] 2022-03-10 00:00:00 2022-03-10 00:00:00 Diana Hicks, FINANCIAL OPERATIONS ANALYST-C: [address] [place] [address] , Ph. G [facility] [id number] [facility] 2022-02-25 00:00:00 2022-02-25 00:00:00 Outpatient KEFFER_A [facility] [id number] [facility] 2022-02-25 00:00:00 2022-02-25 00:00:00 Silvia Presley MD: [address] Reyes, [address], [address], [place] [address] , Ph. [facility], DR. PRESLEY [id number] [facility] 2022-02-20 00:00:00 2022-02-20 00:00:00 Outpatient FERNANDEZ_Kim [facility] [id number] [place] [facility] 2021-11-14 15:19:00 2021-11-14 15:19:00 Outpatient VANE ESCALONA [facility] [id number] [facility] 2021-10-30 11:38:00 2021-10-30 11:38:00 Outpatient Vane Weaver [facility] [id number] [facility] 2021-10-22 00:00:00 2021-10-22 00:00:00 Outpatient Myrna Churchill_ AOS[facility] AOSM [id number] [facility] 2021-10-09 05:31:00 2021-10-09 05:31:00 Outpatient RUY [facility] [id number] [place] [facility] 2021-10-09 00:00:00 2021-10-09 00:00:00 Outpatient Silvia Presley [facility] [id number] [id number] 2021-10-09 00:00:00 2021-10-09 00:00:00 Silvia Presley MD: [address], [address], [address], [place] [address] , Ph. [facility], DR. PRESLEY [id number] [facility] 2021-08-28 01:08:00 2021-08-28 01:08:00 Outpatient RUY [facility] [id number] [place] [facility] 2021-08-28 00:00:00 2021-08-28 00:00:00 Outpatient Silvia Presley [facility] [id number] 2021-08-28 00:00:00 2021-08-28 00:00:00 Silvia Presley MD: [address], [address], [place] [address] , Ph. [facility], DR. PRESLEY [id number] [facility] 2021-07-29 04:29:00 2021-07-29 04:29:00 Outpatient FERNANDEZ_A [facility] [id number] [facility] 2021-07-29 00:00:00 2021-07-29 00:00:00 Outpatient Silvia Presley [facility] [id number] 2021-07-29 00:00:00 2021-07-29 00:00:00 Silvia Presley MD: [address], [place] [address] , Ph. [facility], DR. PRESLEY [id number] [facility] 2021-06-03 11:26:00 2021-06-03 11:26:00 Outpatient Jak Bhatia [facility] [id number] [facility] 2021-05-30 04:25:00 2021-05-30 04:25:00 Outpatient LUIZDL_Kim [facility] [id number] [facility] 2021-05-30 00:00:00 2021-05-30 00:00:00 Outpatient Silvia Presley [facility] [id number] 2021-05-30 00:00:00 2021-05-30 00:00:00 Silvia Presley MD: [address], [address], [place] [address] , Ph. [facility], DR. PRESLEY [id number] [facility] 2021-05-15 12:01:00 2021-05-15 12:01:00 Outpatient KEDL_A [facility] [id number] [facility] 2021-05-15 00:00:00 2021-05-15 00:00:00 Outpatient Silvia Presley [facility] [id number] 2021-05-15 00:00:00 2021-05-15 00:00:00 Silvia Presley MD: [address], [place] [address] , Ph. [facility], DR. PRESLEY [id number] [facility] 2021-04-18 11:21:00 2021-04-18 11:21:00 Outpatient FERNANDEZ_A [facility] [id number] [facility] 2021-04-17 03:55:00 2021-04-17 03:55:00 Outpatient FERNANDEZ_A [facility] [id number] [facility] 2021-04-17 00:00:00 2021-04-17 00:00:00 Silvia Presley MD: [address], [place] [address] , Ph. [facility], DR. PRESLEY [id number] [facility] 2021-04-17 00:00:00 2021-04-17 00:00:00 Outpatient Silvia Presley [facility] [id number] 2021-02-28 11:56:00 2021-02-28 11:56:00 Outpatient Yan_W [facility] [id number] [facility] 2021-02-28 00:00:00 2021-02-28 00:00:00 Delroy Damon MD: [address] [place] [address], [address] [address] , Ph. [facility] Eddy - Otolaryngol ogy-MOB [id number] [facility] 2021-02-27 12:31:00 2021-02-27 12:31:00 Outpatient Yan_W [facility] [id number] [facility] 2021-02-21 02:15:00 2021-02-21 02:15:00 Outpatient Yan_W [facility] [id number] [facility] 2021-01-23 03:45:00 2021-01-23 03:45:00 Outpatient Yan_W [facility] [id number] [facility] 2021-01-23 03:45:00 2021-01-23 03:45:00 Outpatient Yan_W [facility] [id number] [facility] 2021-01-23 00:00:00 2021-01-23 00:00:00 Delroy Damon MD: [address] [place] [address], [address] [address] , Ph. [facility] Eddy - Otolaryngol ogy-MOB [id number] [facility] 2020-12-26 10:19:00 2020-12-26 10:19:00 [facility] [id number] 2020-12-26 10:19:00 2020-12-26 10:19:00 [facility] [id number] [facility] 2020-12-26 10:19:00 2020-12-26 10:19:00 Outpatient Yan_W [facility] [id number] [facility] 2020-12-25 09:43:00 2020-12-25 14:14:00 Emergency ER PA MORROW [facility] [id number] [facility] 2020-12-24 05:10:00 2020-12-24 05:10:00 Outpatient RUY [facility] [id number] [facility] 2020-12-24 00:00:00 2020-12-24 00:00:00 Outpatient Silvia Presley [facility] [id number] 2020-12-24 00:00:00 2020-12-24 00:00:00 Silvia Presley MD: [address], [address], [place] [address] , Ph. [facility], DR. PRESLEY [id number] [facility] 2020-12-15 18:13:00 2020-12-18 14:23:00 Inpatient ER ANA BONNER [facility] [id number] [facility] 2020-06-21 12:56:00 2020-06-21 12:56:00 Outpatient RUY [facility] [id number] [facility] 2020-06-21 00:00:00 2020-06-21 00:00:00 Outpatient Silvia Presley [facility] [id number] 2020-06-21 00:00:00 2020-06-21 00:00:00 Silvia Presley MD: [address], [address], [place] [address] , Ph. [facility] - [facility] - [facility], DR. PRESLEY [id number] [facility] 2020-05-14 09:58:00 2020-05-14 09:58:00 Outpatient Vane Weaver [facility] [id number] [facility] [place] 2020-04-04 02:20:00 2020-04-04 02:20:00 Outpatient Francoise [facility] [id number] [facility] 2020-01-12 10:10:00 2020-01-12 10:10:00 Outpatient Francoise [facility] [id number] [facility] 2019-12-31 10:51:00 2019-12-31 10:51:00 Outpatient Hawkins_M [facility] 15 [facility] 2019-12-24 11:56:00 2019-12-24 11:56:00 Outpatient Hawkins_M [facility] [id number] [facility] 2019-12-24 11:56:00 2019-12-24 11:56:00 Outpatient Hawkins_M [facility] [id number] [facility] 2019-12-24 11:56:00 2019-12-24 11:56:00 Outpatient Hawkins_M [facility] [id number] [facility] 2019-12-24 11:56:00 2019-12-24 11:56:00 Outpatient Hawkins_M [facility] [id number] [facility] 2019-12-24 11:56:00 2019-12-24 11:56:00 Outpatient Hawkins_M [facility] [id number] [facility] 2019-12-20 11:20:00 2019-12-20 11:20:00 Outpatient Hawkins_M [facility] [id number] [facility] 2019-12-20 11:20:00 2019-12-20 11:20:00 Outpatient Hawkins_M [facility] [id number] [facility] 2019-12-19 04:30:00 2019-12-19 04:30:00 Outpatient Hawkins_M MMG MM [id number] [facility] 2019-12-16 18:46:00 2019-12-16 19:40:00 Emergency ER FLORI VERDUGO [facility] [id number] [facility] 2019-12-16 04:17:00 2019-12-16 04:17:00 Outpatient Hawkins_M [facility] [id number] [facility] 2019-12-16 04:17:00 2019-12-16 04:17:00 Outpatient Hawkins_M [facility] [id number] [facility] 2019-12-16 00:00:00 2019-12-16 00:00:00 Chelsea Wilkes, OREMAN: [address] [facility] [address] [address] , Ph. [facility] [id number] [facility] 2019-12-15 12:53:00 2019-12-15 12:53:00 Outpatient Hawkins_M [id number] [facility] 2019-12-15 00:00:00 2019-12-15 00:00:00 Chelsea Wilkes, OREMAN: [address] [facility] [address] [address] , Ph. [facility] [id number] [facility] 2019-10-05 10:48:00 2019-10-05 10:48:00 Outpatient Destin Epstein [facility] [id number] [facility] 2019-06-16 10:45:00 2019-06-16 10:45:00 Outpatient Destin Epstein [facility] [id number] [facility] 2019-05-25 10:22:00 2019-05-25 10:22:00 Outpatient Destin Epstein [facility] [id number] [facility] 2018-03-21 10:05:00 2018-03-21 12:06:00 Emergency ER BRYAN COREY [facility] [id number] [facility] 2017-07-13 12:57:00 2017-07-13 12:57:00 Outpatient SILVIA MUNSON [facility] [id number] [facility] 2017-06-22 13:10:00 2017-06-22 13:10:00 Outpatient TAMMY DEEFERNANDEZSILVIA [facility] [id number] [facility] 2017-06-04 16:13:00 2017-06-04 16:13:00 Outpatient TAMMY DEEFERNANDEZSILVIA [facility] [id number] [facility] 2017-06-01 14:51:00 2017-06-01 14:51:00 Outpatient TAMMY DEEFERNANDEZSILVIA [facility] [id number] [facility] 2017-04-03 19:53:00 2017-04-03 19:53:00 Outpatient VANE CASE [facility] [id number] [facility] 2017-03-04 13:30:00 2017-03-04 13:30:00 AZAEL Bar M.D. MCGARVEY, WILLIAM, M.D. [facility] [id number] [facility] 2016-07-23 14:41:00 2016-07-23 14:41:00 Outpatient SILVIA MUNSON [facility] [id number] [facility] 2016-06-23 17:01:00 2016-06-23 17:01:00 Outpatient TAMMY SILVIA PRESLEY [facility] [id number] [facility] 2016-03-18 14:37:00 2016-03-18 14:37:00 Outpatient SILVIA MUNSON [facility] [id number] [facility] 2015-09-12 10:15:00 2015-09-12 10:15:00 Outpatient VANE WEAVER [facility] [id number] [facility] 2015-08-06 14:17:00 2015-08-06 14:17:00 Outpatient TAMMY DUMONTROSS [facility] [id number] [facility] 2015-05-30 14:17:00 2015-05-30 14:17:00 Outpatient SILVIA MUNSON [facility] [id number] [facility] 2015-05-24 09:36:00 2015-05-24 09:36:00 Outpatient VANE WEAVER [facility] [id number] [facility] 2015-04-19 10:53:00 2015-04-19 10:53:00 Outpatient VANE ESCALONA [facility] [id number] [facility] 2015-03-15 16:29:00 2015-03-15 16:29:00 Outpatient SILVIA MUNSON [facility] [id number] [facility] 2015-03-01 16:20:00 2015-03-01 16:20:00 Outpatient SILVIA MUNSON [facility] [id number] [facility] 2014-12-27 09:53:00 2014-12-27 09:53:00 Outpatient SILVIA MUNSON [facility] [id number] [facility] 2014-06-29 14:16:00 2014-06-29 15:48:00 Emergency PHANI SHEIKH DEANNA [facility] [id number] [facility] 2014-06-05 15:15:00 2014-06-05 15:15:00 Outpatient SILVIA MUNSON [facility] [id number] [facility] 2014-03-27 09:26:00 2014-03-27 09:26:00 Outpatient SAMMI LOMBARDI [facility] [id number] [facility] 2013-12-08 13:55:00 2013-12-08 13:55:00 Outpatient SILVIA MUNSON [facility] [id number] [facility] 2013-12-05 14:20:00 2013-12-05 14:20:00 Outpatient TAMMY PRESLEY SILVIA [facility] [id number] [facility] 2013-01-11 09:36:00 2013-01-11 09:36:00 Outpatient TAMMY MANAS VANE [facility] [id number] [facility] 2011-01-10 05:50:00 2011-01-10 05:50:00 Outpatient SAMMI LOMBARDI [facility] [id number] [facility] 2010-12-15 14:37:00 2010-12-15 17:47:00 Emergency ER MIRANDA HOFFMAN [facility] [id number] [facility] 2008-01-14 20:50:00 2008-01-14 23:50:00 Emergency ER LOLY MARLEY [facility] [id number] [facility] 2002-12-15 15:37:00 2002-12-15 15:37:00 Outpatient ELLEN BRADFORD [facility] [id number] [facility] 2002-12-14 14:55:00 2002-12-14 14:55:00 Outpatient ELLEN BRADFORD [facility] [id number] [facility] 2002-12-07 14:19:00 2002-12-07 14:19:00 Outpatient ELLEN BRADFORD [facility] [id number] [facility] 2002-12-05 14:54:00 2002-12-05 14:54:00 Outpatient ELLEN BRADFORD [facility] [id number] [facility] 2002-12-02 18:18:00 2002-12-02 18:18:00 Outpatient ELLEN BRADFORD [facility] [id number] [facility] 2002-11-30 17:24:00 2002-11-30 17:24:00 Outpatient ELLEN BRADFORD [facility] [id number] [facility] 2002-11-26 13:06:00 2002-11-26 13:06:00 Outpatient ELLEN BRADFORD [facility] [id number] [facility] 2002-11-23 14:42:00 2002-11-23 14:42:00 Outpatient SILVIA MUNSON [facility] [id number] [facility] 2002-11-22 14:52:00 2002-11-22 14:52:00 Outpatient SILVIA MUNSON [facility] [id number] [facility] 2002-11-20 15:10:00 2002-11-20 15:10:00 Outpatient ELLEN BRADFORD [facility] [id number] [facility] Results Test Description Test Time Test Comments Results Result Co mments Source [facility] (dipstick) panel - [id number] 11:34:27* Test Item Value Reference Range Interpretation Comme nts Leukocytes (test code = Leukocytes) Small Nitrite (test code = Nitrite) negative Urobilinogen (test code = Urobilinogen) .2 Protein (test code = Protein) Negative pH (test code = pH) 7.0 Blood (test code = Blood) Hemolyzed: Trace Specific [place] (test code = Specific [place]) 1.025 Ketone (test code = Ketone) Negative Bilirubin (test code = Bilirubin) Negative Glucose (test code = Glucose) Negative Appearance (test code = Appearance) Clear Color (test code = Color) Yellow [facility] Hospital[facility] Ab [Titer] in Serum by Immunofluorescence 2021-08-01 00:00:00* Test Item Value Reference Range Interpretation Comme nts Nuclear Ab [Titer] in Serum by Immunofluorescence (test code = 5048-4) negative Laboratory comment [Text] in Report Narrative (test code = 01118-4) comment [facility] ClinicsReagin Ab [Presence] in Serum by [id number] 00:00:00* Test Item Value Reference Range Interpretation Comme nts Reagin Ab [Presence] in Seru m by RPR (test code = 57673-8) non reactive non reactive [facility] Hospital[facility]ryth[facility] sedimentation [id number] 00:00:00* Test Item Value Reference Range Interpretation Comme nts Erythrocyte sedimentation ra te by Westergren method (test code = 4537-7) 24 mm/HR 0-40 [facility] reactive protein [Mass/volume] in Serum or [id number] 00:00:00* Test Item Value Reference Range Interpretation Comme nts C reactive protein [Mass/vol ume] in Serum or Plasma (test code = 1988-5) <1 0-10 [facility] pylori IgM Ab [Units/volume] in [id number] 00:00:00* Test Item Value Reference Range Interpretation Comme nts Helicobacter pylori IgM Ab [Units/volume] in Serum (test code = 7903-8) <9.0 0.0-8.9 [facility] HospitalAmylase and triacylglycerol lipase panel - Serum or [id number] 00:00:00* Test Item Value Reference Range Interpretation Comme nts Amylase [Enzymatic activity/ volume] in Serum or Plasma (test code = 1798-8) 89 U/L 31-110 [facility] ClinicsLipase [Enzymatic activity/volume] in Serum or [id number] 00:00:00* Test Item Value Reference Range Interpretation Comme nts Lipase [Enzymatic activity/v olume] in Serum or Plasma (test code = 3040-3) 42 U/L 14-85 [facility] 2000 panel - Serum or [id number] 00:00:00* Test Item Value Reference Range Interpretation Comme nts Glucose [Mass/volume] in Ser um or Plasma (test code = 2345-7) 96 mg/dL 65-99 Urea nitrogen [Mass/volume] in Serum or Plasma (test code = 3094-0) 21 mg/dL 8-27 Creatinine [Mass/volume] in Serum or Plasma (test code = 2160-0) 1.00 mg/dL 0.57-1.00 Glomerular filtration rate/1.73 sq M.predicted among non-blacks [Volume Rate/Area] in Serum, Plasma or Blood by Creatinine-based formula (CKD-EPI) (test code = 71129-3) 54 mL/min/1.73 >59 L Glomerular filtration rate/1.73 sq M.predicted among blacks [Volume Rate/Area] in Serum, Plasma or Blood by Creatinine-based formula (CKD-EPI) (test code = 77955-7) 62 mL/min/1.73 >59 Urea nitrogen/Creatinine [Ma ss Ratio] in Serum or Plasma (test code = 3097-3) 21 12-28 Sodium [Moles/volume] in Ser um or Plasma (test code = 2951-2) 139 mmol/L 134-144 Potassium [Moles/volume] in Serum or Plasma (test code = 2823-3) 4.5 mmol/L 3.5-5.2 Chloride [Moles/volume] in Serum or Plasma (test code = 5-0) 102 mmol/L 96-106 Carbon dioxide, total [Moles/volume] in Serum or Plasma (test code = 2027-9) 21 mmol/L 20-29 Calcium [Mass/volume] in Ser um or Plasma (test code = 40627-4) 10.0 mg/dL 8.7-10.3 Protein [Mass/volume] in Ser um or Plasma (test code = 2885-2) 6.7 g/dL 6.0-8.5 Albumin [Mass/volume] in Ser um or Plasma (test code = 1751-7) 4.4 g/dL 3.7-4.7 Globulin [Mass/volume] in Serum by calculation (test code = 09839-2) 2.3 g/dL 1.5-4.5 Albumin/Globulin [Mass Ratio ] in Serum or Plasma (test code = 1759-0) 1.9 1.2-2.2 Bilirubin.total [Mass/volume ] in Serum or Plasma (test code = 1974-) 0.4 mg/dL 0.0-1.2 Alkaline phosphatase [Enzymatic activity/volume] in Serum or Plasma (test code = 6768-6) 109 IU/L 44-121 Aspartate aminotransferase [Enzymatic activity/volume] in Serum or Plasma (test code = 1920-8) 26 IU/L 0-40 Alanine aminotransferase [Enzymatic activity/volume] in Serum or Plasma (test code = 1742-6) 18 IU/L 0-32 [facility] [id number] 00:00:00* Test Item Value Reference Range Interpretation Comme nts written authorization (test code = written authorization) comment [facility] + T4, [id number] 00:00:00* Test Item Value Reference Range Interpretation Comme nts Thyrotropin [Units/volume] i n Serum or Plasma by Detection limit <= 0.005 mIU/L (test code = 72003-7) 2.100 uIU/mL 0.450-4.500 Thyroxine (T4) free [Mass/volume] in Serum or Plasma (test code = 3024-7) 1.37 NG/dL 0.82-1.77 [facility] W Auto Differential panel - [id number] 00:00:00* Test Item Value Reference Range Interpretation Comme nts Leukocytes [#/volume] in Blo od by Automated count (test code = 6690-2) 5.0 x10e3/uL 3.4-10.8 Erythrocytes [#/volume] in Blood by Automated count (test code = 789-8) 3.50 x10e6/uL 3.77-5.28 L Hemoglobin [Mass/volume] in Blood (test code = 718-7) 11.6 g/dL 11.1-15.9 Hematocrit [Volume Fraction] of Blood by Automated count (test code = 4544-3) 33.8 % 34.0-46.6 L Erythrocyte mean corpuscular volume [Entitic volume] by Automated count (test code = 787-2) 97 fL 79-97 Erythrocyte mean corpuscular hemoglobin [Entitic mass] by Automated count (test code = 785-6) 33.1 pg 26.6-33.0 H Erythrocyte mean corpuscular hemoglobin concentration [Mass/volume] by Automated count (test code = 786-4) 34.3 g/dL 31.5-35.7 Erythrocyte distribution wid th [Ratio] by Automated count (test code = 788-0) 13.6 % 11.7-15.4 Platelets [#/volume] in Bloo d by Automated count (test code = 777-3) 180 x10e3/uL 150-450 Neutrophils/100 leukocytes i n Blood by Automated count (test code = 770-8) 65 % not estab. Lymphocytes/100 leukocytes i n Blood by Automated count (test code = 736-9) 24 % not estab. Monocytes/100 leukocytes in Blood by Automated count (test code = 5905-5) 7 % not estab. Eosinophils/100 leukocytes i n Blood by Automated count (test code = 713-8) 2 % not estab. Basophils/100 leukocytes in Blood by Automated count (test code = 706-2) 1 % not estab. immature cells (test code = immature cells) sap bobj developer Neutrophils [#/volume] in Bl ood by Automated count (test code = 751-8) 3.2 x10e3/uL 1.4-7.0 Lymphocytes [#/volume] in Bl ood by Automated count (test code = 731-0) 1.2 x10e3/uL 0.7-3.1 Monocytes [#/volume] in Bloo d by Automated count (test code = 742-7) 0.3 x10e3/uL 0.1-0.9 Eosinophils [#/volume] in Bl ood by Automated count (test code = 711-2) 0.1 x10e3/uL 0.0-0.4 Basophils [#/volume] in Bloo d by Automated count (test code = 704-7) 0.1 x10e3/uL 0.0-0.2 Immature granulocytes/100 leukocytes in Blood by Automated count (test code = 86151-6) 1 % not estab. Immature granulocytes [#/volume] in Blood by Automated count (test code = 59352-0) 0.1 x10e3/uL 0.0-0.1 Nucleated erythrocytes/100 leukocytes [Ratio] in Blood by Automated count (test code = 84482-0) sap bobj developer Morphology [Interpretation] in Blood Narrative (test code = 16911-5) sap bobj developer [facility] ClinicsUrinalysis complete W Reflex Culture panel - [id number] 00:00:00* Test Item Value Reference Range Interpretation Comme nts Specific gravity of Urine (t est code = 2965-2) 1.013 1.005-1.030 pH of Urine by Test strip (t est code = 5803-2) 7.5 5.0-7.5 Color of Urine (test code = 5778-6) yellow yellow Appearance of Urine (test co de = 5767-9) clear clear Leukocyte esterase [Presence ] in Urine by Test strip (test code = 5799-2) trace negative A Protein [Presence] in Urine by Test strip (test code = 01118-9) negative negative/trace Glucose [Presence] in Urine (test code = 2349-9) negative negative Ketones [Presence] in Urine by Test strip (test code = 2514-8) negative negative Hemoglobin [Presence] in Uri ne by Test strip (test code = 5794-3) negative negative Bilirubin.total [Presence] i n Urine by Test strip (test code = 5770-3) negative negative Urobilinogen [Mass/volume] i n Urine by Test strip (test code = 46993-9) 0.2 mg/dL 0.2-1.0 Nitrite [Presence] in Urine by Test strip (test code = 5802-4) negative negative Microscopic observation [Identifier] in Urine sediment by Light microscopy (test code = 30019-4) sap bobj developer Leukocytes [#/area] in Urine sediment by Microscopy high power field (test code = 5821-4) 0-5 0-5 Erythrocytes [#/area] in Uri ne sediment by Microscopy high power field (test code = 97312-1) none seen 0-2 Epithelial cells [#/area] in Urine sediment by Microscopy high power field (test code = 5787-7) 0-10 0-10 Epithelial cells.renal [#/ar ea] in Urine sediment by Microscopy high power field (test code = 41435-0) sap bobj developer Casts [Presence] in Urine se diment by Light microscopy (test code = 54619-6) none seen none seen Casts [Type] in Urine sedime nt by Light microscopy (test code = 22524-6) sap bobj developer Unidentified crystals [Prese nce] in Urine sediment by Light microscopy (test code = 5783-6) sap bobj developer Crystals [type] in Urine sed iment by Light microscopy (test code = 5782-8) sap bobj developer Mucus [Presence] in Urine se diment by Light microscopy (test code = 8247-9) sap bobj developer Bacteria [#/area] in Urine s ediment by Microscopy high power field (test code = 5769-5) none seen none seen/few Yeast [#/area] in Urine sedi ment by Microscopy high power field (test code = 5822-2) sap bobj developer Trichomonas vaginalis [Prese nce] in Urine sediment by Light microscopy (test code = 5813-1) sap bobj developer Urine sediment comments by L ight microscopy Narrative (test code = 52312-2) sap bobj developer urinalysis reflex (test code = urinalysis reflex) comment Bacteria identified in Urine by Culture (test code = 630-4) no growth [facility] HospitalLipid 1996 panel - Serum or [id number] 00:00:00* Test Item Value Reference Range Interpretation Comme nts Cholesterol [Mass/volume] in Serum or Plasma (test code = 2093-3) 225 mg/dL 100-199 H Triglyceride [Mass/volume] i n Serum or Plasma (test code = 2571-8) 230 mg/dL 0-149 H Cholesterol in HDL [Mass/vol ume] in Serum or Plasma (test code = 2085-9) 46 mg/dL >39 Cholesterol in VLDL [Mass/vo lume] in Serum or Plasma by calculation (test code = 28412-8) 41 mg/dL 5-40 H Cholesterol in LDL [Mass/vol ume] in Serum or Plasma by calculation (test code = 98715-0) 138 mg/dL 0-99 H Laboratory comment [Text] in Report Narrative (test code = 16952-4) sap bobj developer [facility] HospitalFolate+Cyanocobalamin [Interpretation] in Serum or [id number] 00:00:00* Test Item Value Reference Range Interpretation Comme nts Cobalamin (Vitamin B12) [Mass/volume] in Serum or Plasma (test code = 2132-9) 421 pg/mL 232-1245 Folate [Mass/volume] in Seru m or Plasma (test code = 2284-8) >20.0 >3.0 [facility] HospitalHemoglobin A1c/Hemoglobin.total in Blood 2021-04-18 00:00:00* Test Item Value Reference Range Interpretation Comme nts Hemoglobin A1c/Hemoglobin.to dimitrios in Blood (test code = 4548-4) 5.6 % 4.8-5.6 [facility]25-Hydroxyvitamin D3+25-Hydroxyvitamin D2 [Mass/volume] in Serum or [id number] 00:00:00* Test Item Value Reference Range Interpretation Comme nts 25-Hydroxyvitamin D3+25-Hydroxyvitamin D2 [Mass/volume] in Serum or Plasma (test code = 58119-4) 46.8 NG/mL 30.0-100.0 [facility] HospitalAmylase [Enzymatic activity/volume] in Serum or [id number] 00:00:00* Test Item Value Reference Range Interpretation Comme nts Amylase [Enzymatic activity/ volume] in Serum or Plasma (test code = 1798-8) 92 U/L 31-110 [facility] W Auto Differential panel - [id number] 04:34:00* Test Item Value Reference Range Interpretation Comme nts white blood count (test code = white blood count) 7.0 K/uL 4.0-11.5 red blood count (test code = red blood count) 4.03 M/uL 3.80-5.20 hemoglobin (test code = hemoglobin) 13.5 g/dL 10.5-15.7 hematocrit (test code = hematocrit) 40.8 % 34.0-50.0 MCV [Entitic volume] (test c ode = 56473-0) 101.2 fL 86-100 H mean corpuscular hemoglobin (test code = mean corpuscular hemoglobin) 33.5 pg 26.2-33.4 H mean corpuscular HGB conc (t est code = mean corpuscular HGB conc) 33.1 g/dL 30-34 red cell distribution width (test code = red cell distribution width) 13.5 % 12.0-15.5 platelet count (test code = platelet count) 186 K/uL 165-450 mean platelet volume (test c ode = mean platelet volume) 9.5 fL 9.4-12.6 Segmented neutrophils/100 leukocytes in Blood (test code = 95728-7) 57.0 % 44.4-80.1 Immature granulocytes [#/vol ume] in Blood (test code = 32955-6) 0.0 K/uL 0.0-0.03 lymphocyte% (test code = lymphocyte%) 31.8 % 10.0-50.0 mono % (test code = mono %) 7.6 % 3.6-12.0 eos % (test code = eos %) 2.7 % 0.0-5.4 Basophils/100 leukocytes in Unspecified specimen (test code = 30863-1) 0.6 % 0.1-1.2 Band form neutrophils [#/vol ume] in Blood (test code = 76607-4) 3.98 K/uL 1.56-6.13 Lymphocytes [#/volume] in Unspecified specimen by Automated count (test code = 47520-7) 2.2 K/uL 1.18-3.74 mono # (test code = mono #) 0.53 K/uL 0.24-0.86 eos # (test code = eos #) 0.19 K/uL 0.04-0.36 basophil # (test code = baso savannah #) 0.04 K/uL 0.01-0.08 NRBC% (test code = NRBC%) 0 /100 WBC 0-0.2 NRBC# (test code = NRBC#) 0 K/uL [facility]Different[facility], method unspecified - [id number] 04:34:00NeutrophilsBandLymphocyteMonocyteEosinophilPlatelet EstimatePlatelet MorphologyMaSouth Mississippi State HospitalBacteria identified in Wound by Culture 2019-12-16 04:34:00ResultsMississippi State Hospital- CT LOWER EXTRM W/O C RT 2018-12-09 11:36:00Patient Name: PATTI SHAW Unit No: [id number] EXAMS: CPT CODE: [id number] CT L[place]TRM W/[place] [address] TECHNIQUE: Volumetric CT data of the right ankle was obtained without use of intravenous contrast. Images were then viewed in the axial, coronal and sagittal planes. CT radiation dose optimization is achieved for this examination by the use of a CT protocol in accordance with ACR practice standards and adherence to transportation technician's recommendations. INDICATION: PAIN COMPARISON: CT dated09/29/2017 FINDINGS: Interval postoperative changes of tibiotalar talocalcaneal arthrodesis demonstra keely. There is marked collapse and partial absence of the talus. The vertical stem demonstrates treat prosthetic lucency measuring up to 3.5 mm (coronal image 137), concerning for loosening. The screws appear intact. No osseous fusion is visualized. Distal fibular resection. No other significant interval change. IMPRESSION: Interval postoperative changes of TTC arthrodesis without fusion. There isevidence of hardware loosening. at 1136 Reported and signed by: Kory De Leon M.D. CC: Zhao Cortes MD Technologist: Donald Melendez,RT(R) CTDI: DLP: Trnscrpt: 12/09/2018 (8778) tAZALEA [facility] NAME: PATTI SHAW [address] [facility] PHYS: MALI Ordaz Zhao Cortes : 1940GE: 78 SEX: F [place] [address] LOC: Y.RAD PHONE #: [phone] EXAM DATE: 12/08/2018 STATUS: DEP CLI FAX #: [phone] RAD #: D/C DT PAGE 1 Signed Report Patient Name: PATTI SHAW Unit No: [id number] EXAMS: CPT CODE: [id number] CT LOWER EXTRM W/[place] [address] (Continued) Orig Print D/T: S: 12/09/2018 (1139) [facility] NAME: PATTI SHAW [address] [facility] PHYS: Zhao Gerard : 1940 AGE: 78 SEX: F [place] [address] LOC: Y.RAD PHONE #: [phone] EXAM DATE: 12/08/2018 STATUS: DEP CLI FAX #: [phone] RAD #: D/C DT PAGE 2 Signed ReportLipid Profile 2017-04-03 21:20:00* Test Item Value Reference Range Interpretation Comme nts Cholesterol (test code = CHOL) 114 mg/dL 0-200 N Triglycerides (test code = TRIG) 110 mg/dL 9-200 N HDL (test code = HDL) 43 mg/dL 50-60 L Chol/HDL (test code = CHOLPHDL) 2.7 Ratio 0.0-4.4 N LDL, Calculated (test code = LDLC) 49 mg/dL 0-130 N (NOTE)RISK OF HEART DISEASEPublished by Tuvaluan Heart AssociationAnalyte Optimal Boderline Increased RiskCHOL <200 200-239 >240TRIG <150 150-199 >200HDL Male: >60 <40HDL Female: >60 <50LDL <100 130-159 >160LDL NEAR OPTIMAL IS 100-129 VLDL (test code = VLDL) 22 mg/dL 5-40 N LDL/HDL (test code = LDLPHDL) 1 D-Dimer, [id number] 21:29:00* Test Item Value Reference Range Interpretation Comme nts D-Dimer, Quant (test code = DDQNT) 1426 ng/mL 0-500 H [id number]-[id number] 21:35:00* Test Item Value Reference Range Interpretation Comme nts NT ProBnp (test code = PBNP) 277 pg/mL 0-124 H Notes Date/Time Note Provider Source 2018-06-14 09:48:00 [id number] [place] [address] PATIENT NAME: PATTI SAHW ADMIT DATE: 06/14/18 ACCOUNT NO: [id number] ROOM NO: AGE: 77 REPORT TYPE: OPERATIVE REPORT SEX: F ADMITTING PHYSICIAN: ATTENDING PHYSICIAN:Zhao Cortes MD OPERATION DATE: 06/14/2018 PREOPERATIVE DIAGNOSIS: Right hindfoot symptomatic screw. POSTOPERATIVE DIAGNOSIS: Right hindfoot symptomatic screw. PROCEDURE PERFORMED: Right hindfoot symptomatic screw removal. SURGEON: Zhao Cortes MD AIRPORT RAMP AGENT: Dr. Sammi Macedo. ANESTHESIA: General plus local. ESTIMATED BLOOD LOSS: Minimal. SPECIMENS: None. COMPLICATIONS: None. DISPOSITION: The patient was taken to the recovery room in stable condition and then discharged home with a followup. INDICATIONS FOR THE OPERATION: The patient is a 77-year-old female, who is status post a right tibiotalocalcaneal arthrodesis. She has been doing well other than complaints of pain at the lateral aspect of her hindfoot where there is a prominent screw that has backed out. She presents today for the aforementioned procedure. PROCEDURE IN DETAIL: After obtaining the proper informed consent, discussing risks and benefits of surgery, the patient was given preoperative antibiotics in the holding area. The correct leg was identified and signed. She was taken to the operating room and was placed on the operating table in supine position. She was placed under general anesthesia by the anesthesiologist without any complications. A tourniquet was placed under her right calf, and her right foot and ankle were then prepped and draped in a sterile fashion. Leg was elevated, exsanguinated with an Esmarch, and the tourniquet was inflated to 250 mmHg. A 1.5 cm lateral hindfoot incision was then made over the palpable screw head. The screw was then removed in its entirety, which was verified with the image intensifier. There were no signs of infection. This wound was irrigated and closed with nylon suture and then infiltrated with 30 mL of 0.5% Marcaine plain for postoperative pain control. The wound was sterilely dressed with a bulky PATIENT NAME: PATTI SHAW soft dressing. The tourniquet was let down and the toes were well perfused at that time. The patient tolerated the procedure well. She awoke from general anesthesia without any complication. She was placed on her hospital bed and taken to the recovery room in stable condition where she will be discharged home with a followup. Dictated By: Zhao Cortes MD WT: OP:CEM/MALI/LIANNA Conf#: [id number]/DID#: [id number] Authenticated by Zhao Cortes MD On 06/15/2018 07:40:30 AM at 0740 PATIENT NAME: PATTI SHAW [facility] 2018-06-14 07:30:00 [facility] Brief Op Note REPORT#:[id number] REPORT STATUS: Signed DATE:06/14/18 TIME: 729 PATIENT: PATTI SHAW UNIT #: [id number] ROOM/BED: : 42 AGE: 77 SEX: F ATTEND: Zhao Cortes MD ADM AUTHOR: Zhao Cortes MD * ALL edits or amendments must be made on the electronic/computer document * Op/Inv Proc Note - Brief Pre-procedure diagnosis: right hindfoot symptomatic screw Post-procedure diagnosis: same as pre procedure dx Procedures performed: right hindfoot screw removal Primary Surgeon: Sebastian Crude Tester(s): Hellen Findings: see dictation Complications: none Estimated blood loss in ml's: 10 Specimens removed/altered: none at 0936 RPT #:[id number] END OF REPORT HCATO
--- NOTE | 2024-03-12 13:50 | RAD REPORT ---
EXAMINATION: ONE VIEW CHEST XR CLINICAL INDICATION: Female, 83 years old.,COUGH TECHNIQUE: Frontal chest projection is submitted. Examination is limited by patient positioning and t echnique. COMPARISON: No prior exam. FINDINGS: The lungs are well inflated and clear of infiltrates. Chronic interstitial changes at the bases. No pneumothorax or sizable effusion. The heart is normal in size. IMPRESSION: No acute intrathoracic abnormalities.
[2024-03-12] MEDS ORDERED: LORazepam 2 MG/ML VIAL ONE (14:22)
[2024-03-12] MEDS ORDERED: NA CHLORIDE 0.9% 1,000 ML ONE (14:22)
[2024-03-12 14:53] LABS: PT Prothrombin Time 12.3 SECONDS (9.4-12.5); PTT, Activated Partial Thromb 35.3 SECONDS (24.3-36.9); Protime INR 1.1
[2024-03-12 14:55] LABS: Absolute Eosinophils 0.1 K/uL (0-0.5); Absolute Monocytes 0.5 K/uL (0.1-1.3); Absolute Neutrophil 6.6 K/uL (1.8-8.0); Basophils % 0.5 % (0-1.3); Eosinophils % 1.3 % (0-4.4); Hematocrit 43.7 % (36.0-45.0); Hemoglobin 14.7 g/dL (12.0-15.0); Lymphocytes % 12.4 % (15.3-44.8); MCH 33.3 pg (27.0-35.0); MCHC 33.7 g/dL (32.0-36.0); MCV 98.8 fL (80-100); MPV 7.8 fL (7.6-11.3); Monocytes % 6.1 % (3.3-12.3); Neutrophils % 79.7 % (41.7-73.7); Nucleated Red Blood Cells % 0.1 % (0-0); Platelets 193 thou/uL (152-406); RBC Red Blood Cell Count 4.42 M/uL (3.86-4.86); Red Cell Distribution Width 13.7 % (12.1-15.2)
[2024-03-12 16:24] LABS: ALT/SGPT 17 U/L (13-56); AST/SGOT 22 U/L (15-37); Albumin 3.3 g/dL (3.4-5.0); Alkaline Phosphatase 149 U/L (45-117); Anion Gap 12.8 mEq/L (5.0-15.0); BUN Blood Urea Nitrogen 19 mg/dL (7-18); Bicarbonate 24 mEq/L (21-32); Bilirubin Direct 0.2 mg/dL (0-0.2); Bilirubin Indirect, Calculated 0.4 mg/dL (0.2-0.8); Bilirubin Total 0.6 mg/dL (0.2-1.0); Globulin 3.4 g/dL (2.3-3.5); Glomerular Filtration Rate 69 ml/min (=/>90); Glucose Level 102 mg/dL (74-106); Lipase 24 U/L (13-75); NT PRO-BNP 4421 pg/mL (<450); Potassium 3.8 mEq/L (3.5-5.1); Protein, Total 6.7 g/dL (6.4-8.2); Sodium Level 141 mEq/L (136-145); Troponin High Sensitivity 14.4 pg/mL (<58.9)
[2024-03-12 17:58] LABS: Sqamous Epithelial <5 /HPF (None Seen); Urine Bacteria <20 /HPF (<20); Urine Bilirubin NEGATIVE (Negative); Urine Blood Negative (Negative); Urine Clarity Turbid (Clear); Urine Color Light-Yellow (Yellow); Urine Culture Reflex Order REFLEXED; Urine Glucose NEGATIVE (Negative); Urine Ketones NEGATIVE (Negative); Urine Microscopic Reflex YN ORDER UMIC; Urine Nitrite NEGATIVE (Negative); Urine Protein NEGATIVE (Negative); Urine RBC <5 /HPF (None Seen); Urine Urobilinogen Normal (Normal); Urine pH 7.5 (5.0-7.0)
[2024-03-12 17:59] LABS: Barbiturates NEGATIVE (NEGATIVE); Benzodiazepines NEGATIVE (NEGATIVE); Cocaine NEGATIVE (NEGATIVE); METHAMPHETAM NEGATIVE (NEGATIVE); Methadone NEGATIVE (NEGATIVE); Opiates NEGATIVE (NEGATIVE); Phencyclidine NEGATIVE (NEGATIVE); THC Cannibis NEGATIVE (NEGATIVE)
--- NOTE | 2024-03-12 18:18 | EDPHYS ---
Physician Documentation [facility] Name: Cynthia Eric Age: 83 yrs Sex: Female : 1940 Arrival Date: 03/12/2024 Time: 12:37 Bed 17 Private MD: ED Physician Luis Antonio Solorzano HPI: 03/12 16:14 This 83 yrs old Female presents to ER via EMS with complaints of Behavioral nabeel complaint. 16:14 AMS AT [facility]. The patient presents with trouble concentrating. Onset: The nabeel symptoms/episode began/occurred just prior to arrival. Possible causes: CVA or TIA, head injury, low blood sugar, seizure, sepsis. Associated signs and symptoms: The patient has no apparent associated signs or symptoms. Onset: The symptoms/episode began/occurred 1 day(s) ago. Current symptoms: In the emergency department the patient's symptoms have improved, mildly. Patient's baseline: Neuro:. Severity of symptoms: At their worst the symptoms were mild in the emergency department the symptoms are unchanged. Historical: - Allergies: 12:46 Sulfa (Sulfonamide Antibiotics); ss - PMHx: 12:46 Hypertensive disorder; Hypothyroidism; ibs; Rheumatoid Arthritis; ss - PSHx: 12:46 MATEO knee; Cholecystectomy; Stented artery; ss - Immunization history:: Adult Immunizations up to date. - Infectious Disease History:: Denies. - Family history:: not pertinent. - Social history:: Smoking status: unknown. ROS: 16:14 Constitutional: Negative for fever, chills, and weight loss, Eyes: Negative for injury, nabeel pain, redness, and discharge, ENT: Negative for injury, pain, and discharge, Neck: Negative for injury, pain, and swelling, Cardiovascular: Negative for chest pain, palpitations, and edema, Respiratory: Negative for shortness of breath, cough, wheezing, and pleuritic chest pain, Abdomen/GI: Negative for abdominal pain, nausea, vomiting, diarrhea, and constipation, Back: Negative for injury and pain, : Negative for injury, bleeding, discharge, and swelling, MS/Extremity: Negative for injury and deformity, Skin: Negative for injury, rash, and discoloration, Neuro: Negative for headache, weakness, numbness, tingling, and seizure, Psych: Negative for depression, anxiety, suicide ideation, homicidal ideation, and hallucinations, Allergy/Immunology: Negative for hives, rash, and allergies, Endocrine: Negative for neck swelling, polydipsia, polyuria, polyphagia, and marked weight changes, Hematologic/Lymphatic: Negative for swollen nodes, abnormal bleeding, and unusual bruising, Exam: 16:18 Constitutional: This is a well developed, well nourished patient who is awake, alert, nabeel and in no acute distress. Head/Face: Normocephalic, atraumatic. Eyes: Pupils equal round and reactive to light, extra-ocular motions intact. Lids and lashes normal. Conjunctiva and sclera are non-icteric and not injected. Cornea within normal limits. Periorbital areas with no swelling, redness, or edema. ENT: Nares patent. No nasal discharge, no septal abnormalities noted. Tympanic membranes are normal and external auditory canals are clear. Oropharynx with no redness, swelling, or masses, exudates, or evidence of obstruction, uvula midline. Mucous membranes moist. Neck: Trachea midline, no thyromegaly or masses palpated, and no cervical lymphadenopathy. Supple, full range of motion without nuchal rigidity, or vertebral point tenderness. No Meningismus. Chest/axilla: Normal chest wall appearance and motion. Nontender with no deformity. No lesions are appreciated. Respiratory: Lungs have equal breath sounds bilaterally, clear to auscultation and percussion. No rales, rhonchi or wheezes noted. No increased work of breathing, no retractions or nasal flaring. Abdomen/GI: Soft, non-tender, with normal bowel sounds. No distension or tympany. No guarding or rebound. No evidence of tenderness throughout. Back: No spinal tenderness. No costovertebral tenderness. Full range of motion. Female : Normal external genitalia. Skin: Warm, dry with normal turgor. Normal color with no rashes, no lesions, and no evidence of cellulitis. MS/ Extremity: Pulses equal, no cyanosis. Neurovascular intact. Full, normal range of motion. Neuro: Awake and alert, GCS 15, oriented to person, place, time, and situation. Cranial nerves II-XII grossly intact. Motor strength 5/5 in all extremities. Sensory grossly intact. Cerebellar exam normal. Normal gait. Psych: Awake, alert, with orientation to person, place and time. Behavior, mood, and affect are within normal limits. 16:18 Cardiovascular: Rate: normal, actual rate is 89 bpm, Rhythm: irregularly irregular, Pulses: Pulses are 4+ in bilateral radial, brachial, femoral, popliteal, posterior tibial and and dorsalis pedis arteries.. Heart sounds: normal, Edema: is not appreciated, JVD: is not appreciated, 16:18 ECG was reviewed by the Attending Physician. Vital Signs: 12:42 BP 154 / 92; Pulse 75; Resp 16; Temp 97(TE); Pulse Ox 96% on R/A; Pain 0/10; ss 13:00 BP 154 / 92; Pulse 93; Resp 16; Pulse Ox 97% ; me1 14:00 BP 165 / 78; Pulse 96; Resp 18; Pulse Ox 97% ; me1 15:00 BP 168 / 97; Pulse 89; Resp 17; Pulse Ox 96% ; me1 16:00 BP 175 / 70; Pulse 85; Resp 16; Pulse Ox 96% ; me1 17:00 BP 158 / 85; Pulse 83; Resp 18; Pulse Ox 96% ; me1 18:00 BP 171 / 97; Pulse 83; Resp 18; Pulse Ox 97% ; me1 18:45 BP 164 / 83; Pulse 80; Resp 17; Temp 98.3; Pulse Ox 97% ; me1 19:15 BP 174 / 85; Pulse 87; Resp 19; Pulse Ox 97% ; me1 20:00 BP 129 / 76; Pulse 72; Resp 16; Pulse Ox 97% ; me1 12:42 Pain Scale: Adult ss MDM: 12:42 Medical Screening Exam initiated nabeel 16:19 Differential Diagnosis altered mental status, sepsis, flu. Differential Diagnosis: CVA, nabeel electrolyte abnormality, alcohol intoxication, hypoglycemia, intracranial bleed, meningitis, pneumonia, seizure, sepsis, TIA, UTI, volume depletion. Data reviewed: vital signs, nurses notes, EMS record, lab test result(s), EKG, radiologic studies, CT scan, plain films. Consideration of Admission/Observation Patient was admitted/placed on observation. Escalation of care including admission/observation considered. I considered the following discharge prescriptions or medication management in the emergency department Medications were administered in the Emergency Department. See MAR. Independent interpretation of the following test(s) in the Emergency Department EKG: See my EKG interpretation above. Test considered but Not performed: MRI: NO MRI BRAIN. Historians other than the Patient: EMS: EMS WELL INFORMED. Care significantly affected by the following chronic conditions: Hypertension, IBS, RA. Counseling: I had a detailed discussion with the patient and/or guardian regarding the historical points, exam findings, and any diagnostic results supporting the discharge/admit diagnosis, the presence of at least one elevated blood pressure reading (>120/80) during this emergency department visit, lab results, radiology results. 03/12 12:43 Order name: Basic Metabolic Panel; Complete Time: 17: [facility] 03/12 12:43 Order name: CBC with Diff; Complete Time: 16: [facility] 03/12 12:43 Order name: LFT's; Complete Time: 17: [facility] 03/12 12:43 Order name: Magnesium; Complete Time: 17: [facility] 03/12 12:43 Order name: NT PRO-BNP; Complete Time: 17: [facility] 03/12 12:43 Order name: PT-INR; Complete Time: 16: [facility] 03/12 12:43 Order name: Troponin HS; Complete Time: 17: [facility] 03/12 12:43 Order name: Lipase; Complete Time: 17: [facility] 03/12 12:43 Order name: Urinalysis w/ reflexes; Complete Time: 18:16 [facility] 03/12 12:43 Order name: Acetaminophen; Complete Time: 17: [facility] 03/12 12:43 Order name: ETOH Level; Complete Time: 16:03 [facility] 03/12 12:43 Order name: Ptt, Activated; Complete Time: 16: [facility] 03/12 12:43 Order name: Salicylate [facility] 03/12 12:43 Order name: Urine Drug Screen; Complete Time: 18:16 [facility] 03/12 16:03 Order name: TSH; Complete Time: 18:16 [facility] 03/12 18:05 Order name: Urine Culture [facility] 03/12 18:30 Order name: Magnesium; Complete Time: : [facility] 03/12 18:30 Order name: Phosphorus; Complete Time: : [facility] 03/12 18:30 Order name: Urinalysis w/ reflexes [facility] 03/12 18:30 Order name: Basic Metabolic Panel [facility] 03/12 18:30 Order name: Basic Metabolic Panel [facility] 03/12 18:30 Order name: CBC with Automated Diff [facility] 03/12 18:30 Order name: CBC with Automated Diff [facility] 03/12 12:43 Order name: XRAY Chest (1 view); Complete Time: 14:31 [facility] 03/12 16:03 Order name: CT Head Brain wo Cont; Complete Time: 06:26 [facility] 03/12 12:43 Order name: EKG; Complete Time: 12:44 [facility] 03/12 12:43 Order name: Cardiac monitoring; Complete Time: 20:25 [facility] 03/12 12:43 Order name: EKG - Nurse/Tech; Complete Time: 14:17 [facility] 03/12 12:43 Order name: IV Saline Lock; Complete Time: 14:17 [facility] 03/12 12:43 Order name: Labs collected and sent; Complete Time: 14:36 [facility] 03/12 12:43 Order name: O2 Per Protocol; Complete Time: 14:06 [facility] 03/12 12:43 Order name: O2 Sat Monitoring; Complete Time: 14:06 [facility] 03/12 12:43 Order name: Suicide Screening ([place]); Complete Time: 14:36 [facility] 03/12 15:09 Order name: Labs - recollect needed: recollect green top- not enough; Complete Time: ss 15:22 03/12 17:06 Order name: Misc. Order: GET UA; Complete Time: 17:53 [facility] EC:18 Rate is 89 beats/min. Rhythm is irregularly irregular. QRS [place] is Normal. NM interval nabeel is normal. QRS interval is normal. QT interval is normal. No Q waves. T waves are Normal. Clinical impression: Atrial Fibrillation and No evidence of ischemia. Interpreted by me. Reviewed by me. Administered Medications: 14:36 Drug: NS 0.9% IV 500 ml 500 ml IV at 1 bolus once; to be given as a bolus over 30 me1 minutes Volume: 500 ml; Route: IV; Rate: 1 bolus; Site: right wrist; 15:10 Follow up: Response: No adverse reaction; IV Status: Completed infusion; IV Intake: me1 500ml 14:37 Drug: Ativan IVP 1 mg IVP once Route: IVP; Site: right wrist; me1 15:11 Follow up: Response: No adverse reaction; Anxiety decreased me1 15:11 Drug: NS 0.9% IV 1000 ml IV at 125 ml/hr continuous Route: IV; Rate: 125 ml/hr; Site: me1 right wrist; 18:44 Follow up: IV Status: Infusion continued upon admission me1 18:27 Drug: Rocephin IV 1 grams IV at per protocol once; Given slow IV push per pharmacy me1 instructions Route: IV; Rate: per protocol; Site: right forearm; 18:27 Follow up: Response: No adverse reaction; IV Status: Completed infusion me1 Disposition Summary: 03/12/24 18:18 Hospitalization Ordered Notes: Hospitalization Status: Observation nabeel Provider: Prince nabeel Perez Condition: Stable nabeel Problem: new nabeel Symptoms: have improved nabeel Bed/Room Type: Standard nabeel Location: Intensive Care Unit(03/12/24 19:47) lg3 Room Assignment: 4-(03/12/24 19:47) lg3 Diagnosis - Persistent atrial fibrillation nabeel - Altered mental status, unspecified - BEHAVIORAL CHANGE nabeel - UTI/ Urinary tract infection, site not specified nabeel Forms: - Medication Reconciliation Form nabeel - SBAR form nabeel - Leadership Thank You Letter nabeel Signatures: Dispatcher [employer] EDMS Luis Antonio Solorzano MD MD cha Blanchard, Shelby, RN RN Mikie Simons FNP-C VASCULAR TECH-Cla1 Juli Del Real Lacie, RN RN lg3 Cony Thomas RN RN me1 Corrections: (The following items were deleted from the chart) 12:44 12:44 BASIC METABOLIC PANEL+C.LAB.BRZ ordered. EDMS EDMS 12:44 12:44 CBC+H.LAB.BRZ ordered. EDMS EDMS 12:44 12:44 HEPATIC FUNCTION+C.LAB.BRZ ordered. EDMS EDMS 12:44 12:44 MAGNESIUM+C.LAB.BRZ ordered. EDMS EDMS 12:44 12:44 PROBNP+C.LAB.BRZ ordered. EDMS EDMS 12:44 12:44 PROTIME (+INR)+COAG.LAB.BRZ ordered. EDMS EDMS 12:44 12:44 Troponin High Sensitivity+C.LAB.BRZ ordered. EDMS EDMS 12:44 12:44 LIPASE+C.LAB.BRZ ordered. EDMS EDMS 12:44 12:44 Urinalysis+U.LAB.BRZ ordered. EDMS EDMS 12:44 12:44 ACETAMINOPHEN+C.LAB.BRZ ordered. EDMS EDMS 12:44 12:44 ETHANOL+C.LAB.BRZ ordered. EDMS EDMS 12:44 12:44 PTT, ACTIVATED+COAG.LAB.BRZ ordered. EDMS EDMS 12:44 12:44 SALICYLATE+C.LAB.BRZ ordered. EDMS EDMS 12:44 12:44 URINE DRUG SCREEN+UC.LAB.BRZ ordered. EDMS EDMS 18:40 18:18 nabeel eb 18:57 18:18 Telemetry/MedSurg (observation) nabeel ss 18:57 18:40 205 eb ss 19:47 18:57 Telemetry/MedSurg (observation) ss lg3 19:47 18:57 ss lg3
--- NOTE | 2024-03-12 18:18 | ER ---
Nurse's Notes [facility] Name: Cynthia Eric Age: 83 yrs Sex: Female : 1940 Arrival Date: 03/12/2024 Time: 12:37 Bed 17 Private MD: Diagnosis: Persistent atrial fibrillation;Altered mental status, unspecified-BEHAVIORAL CHANGE;UTI/ Urinary tract infection, site not specified Presentation: 03/12 12:42 Chief complaint: EMS states: Pt reportedly is a new resident at [facility] as of yesterday, but today had refused her morning medication and was showing aggression towards staff members. senior care employees stated that they are "unable to handle her" at this time. Coronavirus screen: Client denies travel out of the [place] in the last 14 days. Ebola Screen: Patient denies exposure to infectious person. Patient denies travel to an Ebola-affected area in the 21 days before illness onset. Initial Sepsis Screen: Does the patient meet any 2 criteria? No. Patient's initial sepsis screen is negative. Does the patient have a suspected source of infection? No. Patient's initial sepsis screen is negative. Risk Assessment: Do you want to hurt yourself or someone else? Patient reports no desire to harm self or others. Onset of symptoms is unknown. 12:42 Method Of Arrival: EMS: [facility] 12:42 Acuity: HONEY 3 ss Triage Assessment: 12:47 General: Pt has no complaints at this time. Pain: Denies pain. Neuro: Level of ss Consciousness is awake, alert, obeys commands. Respiratory: Airway is patent Respiratory effort is even, unlabored, Respiratory pattern is regular, symmetrical. Derm: Skin is thin, Skin is dry, Skin is normal. Historical: - Allergies: 12:46 Sulfa (Sulfonamide Antibiotics); ss - PMHx: 12:46 Hypertensive disorder; Hypothyroidism; ibs; Rheumatoid Arthritis; ss - PSHx: 12:46 MATEO knee; Cholecystectomy; Stented artery; ss - Immunization history:: Adult Immunizations up to date. - Infectious Disease History:: Denies. - Family history:: not pertinent. - Social history:: Smoking status: unknown. Screenin:00 [facility] ED Fall Risk Assessment (Adult) History of falling in the last 3 months, me1 including since admission No falls in past 3 months (0 pts) Confusion or Disorientation Yes (5 pts) Intoxicated or Sedated No (0 pts) Impaired Gait Yes (1 pt) Mobility Assist Device Used No (0 pt) Altered Elimination Yes (1 pt) Score/Fall Risk Level 3 or more points = High Risk Maintained a safe environment, Hourly rounding (assess needs \\T\\ fall precautionary measures) done, Used ambulatory aids as needed (educated on \\T\\ assisted with). Abuse screen: Denies threats or abuse. Nutritional screening: No deficits noted. Tuberculosis screening: No symptoms or risk factors identified. Assessment: 12:48 Reassessment: Pt is cooperative during triage. ss 13:00 General: Appears in no apparent distress. comfortable, well groomed, well developed, me1 well nourished, Behavior is calm, cooperative, appropriate for age, Reports Pt reportedly is a new resident at [facility] as of yesterday, but today had refused her morning medication and was showing aggression towards staff members. senior care employees stated that they are "unable to handle her" at this time. Pain: Denies pain. Neuro: Chavez Agitation-Sedation Scale (RASS): 0 - Alert and Calm Level of Consciousness is awake, alert, obeys commands, confused, Oriented to person, situation. Cardiovascular: Patient's skin is warm and dry. Respiratory: Airway is patent Respiratory effort is even, unlabored, Respiratory pattern is regular, symmetrical. GI: No signs and/or symptoms were reported involving the gastrointestinal system. : No signs and/or symptoms were reported regarding the genitourinary system. EENT: No signs and/or symptoms were reported regarding the EENT system. Derm: Skin is intact, is healthy with good turgor, Skin is pink, warm \\T\\ dry. Musculoskeletal: No signs and/or symptoms reported regarding the musculoskeletal system. 16:20 Reassessment: Spoke with daughter, Malika who states she will not be returning to pick ss up patient or assist with plan of care at this time as she is exhausted, tired and lives 3 hours away. Daughter states, "the facility did not tell me she was not welcomed back. I don't know what the plan is. Maybe she will have to stay in the ER overnight until something else can be figured out." Will call long term to have them call daughter back to update her with residency changes. 16:25 Reassessment: Spoke with clinical data management manager and told her that daughter would like a ss call from them letting her know that patient is not welcome to come back to facility after behavioral episode. Setup Technician states she will talk to the icer machine operator to see what our options are as far as patient returning to facility. 17:00 Reassessment: Spoke to Rama, Setup Technician at [facility] who states that she spoke to ss daughterMalika who again states she will not be coming this evening to assist and that she also feels unsafe taking care of her mother. 19:25 General: Room changed. Called report to JAMES Gonsales in ICU. Patient to go to ICU room me1 -4. Vital Signs: 12:42 BP 154 / 92; Pulse 75; Resp 16; Temp 97(TE); Pulse Ox 96% on R/A; Pain 0/10; ss 13:00 BP 154 / 92; Pulse 93; Resp 16; Pulse Ox 97% ; me1 14:00 BP 165 / 78; Pulse 96; Resp 18; Pulse Ox 97% ; me1 15:00 BP 168 / 97; Pulse 89; Resp 17; Pulse Ox 96% ; me1 16:00 BP 175 / 70; Pulse 85; Resp 16; Pulse Ox 96% ; me1 17:00 BP 158 / 85; Pulse 83; Resp 18; Pulse Ox 96% ; me1 18:00 BP 171 / 97; Pulse 83; Resp 18; Pulse Ox 97% ; me1 18:45 BP 164 / 83; Pulse 80; Resp 17; Temp 98.3; Pulse Ox 97% ; me1 19:15 BP 174 / 85; Pulse 87; Resp 19; Pulse Ox 97% ; me1 20:00 BP 129 / 76; Pulse 72; Resp 16; Pulse Ox 97% ; me1 12:42 Pain Scale: Adult ss ED Course: 12:41 Patient arrived in ED. ss 12:42 Luis Antonio Solorzano MD is Attending Physician. [facility] 12:46 Triage completed. ss 12:46 Arm band placed on right wrist. ss 13:00 Patient has correct armband on for positive identification. Bed in low position. Call me1 light in reach. Side rails up X2. Provided Education on: POC. Verbalized understanding.. Client placed on continuous cardiac and pulse oximetry monitoring. NIBP monitoring applied. Pulse ox on. NIBP on. Warm blanket given. 13:00 No provider procedures requiring assistance completed. me1 13:02 XRAY Chest (1 view) In Process Unspecified. EDMS 14:06 Cony Thomas, JAMES is Primary Nurse. me1 14:24 EKG done, by ED staff, reviewed by Luis Antonio Solorzano MD. em1 14:37 Initial lab(s) drawn, by ED staff, sent to lab. Inserted saline lock: 22 gauge in right me1 wrist, using aseptic technique. 17:37 Urine collected: straight cath specimen, clear. me1 17:45 CT Head Brain wo Cont In Process Unspecified. EDMS 18:17 Prince Perez MD is Hospitalizing Provider. [facility] 18:18 Urine Culture Sent. la1 18:51 Patient admitted, IV remains in place. me1 Administered Medications: 14:36 Drug: NS 0.9% IV 500 ml 500 ml IV at 1 bolus once; to be given as a bolus over 30 me1 minutes Volume: 500 ml; Route: IV; Rate: 1 bolus; Site: right wrist; 15:10 Follow up: Response: No adverse reaction; IV Status: Completed infusion; IV Intake: me1 500ml 14:37 Drug: Ativan IVP 1 mg IVP once Route: IVP; Site: right wrist; me1 15:11 Follow up: Response: No adverse reaction; Anxiety decreased me1 15:11 Drug: NS 0.9% IV 1000 ml IV at 125 ml/hr continuous Route: IV; Rate: 125 ml/hr; Site: me1 right wrist; 18:44 Follow up: IV Status: Infusion continued upon admission me1 18:27 Drug: Rocephin IV 1 grams IV at per protocol once; Given slow IV push per pharmacy me1 instructions Route: IV; Rate: per protocol; Site: right forearm; 18:27 Follow up: Response: No adverse reaction; IV Status: Completed infusion me1 Medication: 13:00 VIS not applicable for this client. me1 Intake: 15:10 IV: 500ml; Total: 500ml. me1 Outcome: 18:18 Decision to Hospitalize by Provider. [facility] 18:51 Admitted to Med/surg accompanied by tech, via wheelchair, room 205, with chart, Report me1 called to faxed, receipt confirmed with [facility] 18:51 Condition: stable 18:51 Instructed on the need for admit, 20:24 Patient left the ED. [facility] [place] Signatures: Dispatcher [employer] EDLuis Antonio Boothe MD MD cha Martinez, Eric 1 Carrol Luna, RN RN Cony Thomas RN RN la1 Corrections: (The following items were deleted from the chart) 18:15 12:42 Chief complaint: EMS states: Pt reportedly is a new resident at [address] as of yesterday, but today had refused her morning medication and was showing aggression towards staff members. senior care employees stated that they are "unable to handle her" at this time ss
[2024-03-12] MEDS ORDERED: CEFTRIAXONE 1000 MG/VIAL ONE (18:24)
--- NOTE | 2024-03-12 18:25 | RAD REPORT ---
EXAM: CT Head Brain Wo Cont HISTORY: MENTAL STATUS CHANGE COMPARISON: None TECHNIQUE: Multiple contiguous axial images were obtained for a CT of the brain without contrast. Sag ittal and coronal reformats were performed. One or more of the following dose reduction techniques were used: Automated exposure control, adjus tment of the mA and kV according to patient size, and iterative reconstruction. Unless otherwise specified, incidental findings do not require dedicated imaging follow-up. FINDINGS: No evidence of hydrocephalus, intracranial hemorrhage, or extra-axial fluid collection. Mild brain atrophy with mild periventricular and deep white matter chronic microvascular ischemic ch anges present. The calvarium is intact. The visualized paranasal sinuses and mastoid air cells are essentially clear . IMPRESSION: No evidence of acute intracranial abnormality.
[2024-03-12] MEDS ORDERED: ONDANSETRON 4 MG/2 ML VIAL IV PRN (18:27)
--- NOTE | 2024-03-12 18:51 | P.HP ---
Certification for Inpatient Patient admitted to: Inpatient With expected LOS: >2 Midnights Practitioner: I am a practitioner with admitting privileges, knowledge of patient current condition, hospital course, and medical plan of care. Services: Services provided to patient in accordance with Admission requirements found in Title 42 Section 412.3 of the Code of Federal Regulations Patient History Date of Service: 03/12/24 Reason for admission: altered mental status, UTI History of Present Illness: Patient is a 83-year-old female with a past medical history of demen tia and currently living in a memory care unit. She also has a history of atrial fibrillation. She was brought in via EMS for evaluation of altered mental status manifested by disorganized behavior. Patient was slightly agitated and combative at the facility. History is very limited due to chronic dementia and ongoing altered mental status. During my evaluation, patient was calm and awake. She is hemodynamically stable. Review of system could not be completed due to dementia. Workup in the ER included a CT head which was unremarkable. The urine analysis is concerning for UTI. She has been given a dose of ceftriaxone in the ER. Allergies Sulfa (Sulfonamide Antibiotics) Allergy (Verified 09/16/21 21:41) Itching/Hives/Rash Home Medications: Allopurinol 300 mg PO DAILY 09/16/21 Levothyroxine [Synthroid*] 75 mcg PO [id number] 09/16/21 Losartan Potassium 100 mg PO DAILY 09/16/21 Multivitamin with Minerals [Hair, Skin and Nails] 1 each PO DAILY 09/16/21 Nebivolol HCl [Bystolic*] 10 mg PO DAILY 09/16/21 hydroCHLOROthiazide [Hydrochlorothiazide] 25 mg PO DAILY 09/16/21 Digoxin [Lanoxin*] 0.125 mg PO DAILY #30 tab 09/22/21 Pantoprazole [Protonix Tab] 40 mg PO BID #60 tab 09/22/21 - Past Medical/Surgical History Diabetic: No -: CAD -: [place] -: Hypothyroidism -: Hypertension -: Rheumatoid Arthritis -: Afib -: Bilateral Knee Replacements -: Stent x 2 (2012) -: Cholecystectomy Psychosocial/ Personal History: Patient lives at home alone. - Family History Sister -: Cancer - Social History Alcohol use: No CD- Drugs: No Caffeine use: Yes Physical Examination - Physical Exam General: In no apparent distress HEENT: Atraumatic, Normocephalic Respiratory: Clear to auscultation bilaterally, Normal air movement Cardiovascular: No edema, Normal pulses, No murmurs, Irregular heart rate/rhythm Musculoskeletal: No clubbing, No swelling, No contractures, No erythema, No tenderness, No warmth Neurological: Dementia - Studies Laboratory Data (last 24 hrs) 03/12/24 03/12/24 03/12/24 15:19 14:28 14:28 WBC 8.30 Hgb 14.7 Hct 43.7 Plt Count 193 PT 12.3 INR 1.10 APTT 35.3 Sodium 141 Potassium 3.8 BUN 19 H Creatinine 0.85 Glucose 102 Magnesium 2.0 Total Bilirubin 0.6 AST 22 ALT 17 Alkaline Phosphatase 149 H Lipase 24 Assessment and Plan - Problems (Diagnosis) (1) Acute encephalopathy Current Visit: Yes Status: Acute (2) Atrial fibrillation Current Visit: Yes Status: Acute (3) UTI (urinary tract infection) Current Visit: Yes Status: Acute (4) CAD (coronary artery disease) Current Visit: No Status: Chronic Qualifiers: (5) Hypertension Current Visit: No Status: Chronic Qualifiers: (6) Hypothyroidism Current Visit: No Status: Chronic Qualifiers: - Plan Assessment This is a 83-year-old female currently living in a memory care unit due to chronic history of dementia. She also has a history of atrial fibril lation and hypothyroidism. She is presenting to the ER for evaluation of altered mental status. She has a negative CT head. Additional workup is concerning for UTI. Urine appearance was turbid. She received a dose of ceftriaxone in the ER. Urinary tract infection Acute encephalopathy Atrial fibrillation Hypothyroidism Hypertension Dementia Plan: Will admit inpatient with telemetry Continue patient on ceftriaxone for suspected UTI. This is possibly the cause of altered mental status in the setting of dementia She has a normal TSH Check ammonia PT/OT/SENIOR GRAPHIC DESIGNER Resume rest of home medications upon reconciliation - Advance Directives Does patient have a Living Will: Yes Does patient have a Durable POA for Healthcare: Yes
[2024-03-12] MEDS ORDERED: NA CHLORIDE 0.9% 1,000 ML IV SCH (19:00)
[2024-03-12 23:47] LABS: Magnesium 2.1 mg/dL (1.6-2.4)
[2024-03-13 06:31] LABS: Absolute Eosinophils 0.2 K/uL (0-0.5); Absolute Lymphocytes (CBC) 0.9 K/uL (0.7-4.9); Absolute Monocytes 0.5 K/uL (0.1-1.3); Absolute Neutrophil 4.8 K/uL (1.8-8.0); Basophils % 0.6 % (0-1.3); Eosinophils % 3.3 % (0-4.4); Hematocrit 44.9 % (36.0-45.0); Lymphocytes % 14.3 % (15.3-44.8); MCHC 33.4 g/dL (32.0-36.0); MCV 98.6 fL (80-100); MPV 7.6 fL (7.6-11.3); Monocytes % 7.2 % (3.3-12.3); Neutrophils % 74.6 % (41.7-73.7); Platelets 161 thou/uL (152-406); RBC Red Blood Cell Count 4.55 M/uL (3.86-4.86); Red Cell Distribution Width 13.5 % (12.1-15.2)
[2024-03-13 06:52] LABS: Anion Gap 6.7 mEq/L (5.0-15.0); Potassium 3.7 mEq/L (3.5-5.1)
[2024-03-13] MEDS: KCL 20 MEQ/100 mL IVPB 20 MEQ/100 ML BAG IV SCH (08:00)
[2024-03-13] MEDS: CEFTRIAXONE 1,000 MG in NA CHLORIDE 0.9% 50 ML IVPB SCH (08:15)
[2024-03-13] MEDS: POTASSIUM CL SA 10 MEQ TAB PO ONE (08:15)
[2024-03-13] MEDS: ENOXAPARIN 40 MG/0.4 ML SQ SCH (08:16)
--- NOTE | 2024-03-13 15:03 | EKG ---
Test Date: 2024-03-12 Test Time: 13:56:11 Icu Staff Nurse: CHINO MEASUREMENT RESULTS: Intervals: Rate: 89 VA: QRSD: 82 QT: 364 QTc: 442 [place]: P: VA: QRS: 4 T: -13 INTERPRETIVE STATEMENTS: Atrial fibrillation Anterior infarct, age undetermined Abnormal ECG Compared to ECG 09/16/2021 17:12:25 No significant changes Electronically Signed On 03-13-24 15:02:39 CDT by Franki Rodriguez
[2024-03-13] MEDS: HYDRALAZINE HCL 20 MG/ML VIAL IV PRN (16:25)
--- NOTE | 2024-03-13 17:59 | P.PN ---
Subjective Date of Service: 03/13/24 Patient confused and agitated. Psychiatric meds adjusted. Review of Systems is unable to be obtained Physical Examination - Vital Signs Temperature: 97.8 F Blood Pressure: 157/103 Pulse: 84 Respirations: 18 Pulse Ox (%): 96 - Physical Exam General: Alert, In no apparent distress, Oriented x3 Respiratory: Clear to auscultation bilaterally, Normal air movement Cardiovascular: Regular rate/rhythm, Normal S1 S2, No murmurs Gastrointestinal: Normal bowel sounds, Soft and benign, Non-distended, No tenderness Musculoskeletal: No clubbing, No swelling, No tenderness Neurological: Sensation intact, Cranial nerves 3-12 intact - Studies Medications List Reviewed: Yes Assessment & Plan - Problems (Diagnosis) (1) Acute encephalopathy Current Visit: Yes Status: Acute (2) ANGIE (acute kidney injury) Current Visit: No Status: Acute (3) CAD (coronary artery disease) Current Visit: No Status: Chronic Qualifiers: (4) Chronic atrial fibrillation with RVR Current Visit: No Status: Chronic (5) Hypertension Current Visit: No Status: Chronic Qualifiers: (6) Hypothyroidism Current Visit: No Status: Chronic Qualifiers: - Plan 1. Gentle hydration 2. Panculture 3. IV antibiotic prophylactically 4. Imaging studies 5. Monitor electrolytes 6. Check thyroid studies 7. Review medications 8. Neurochecks every 4 hours 9. GI DVT prophylaxis Discharge Plan: Home Plan to discharge in: Greater than 2 days - Advance Directives Does patient have a Living Will: No Does patient have a Durable POA for Healthcare: No - Code Status/Comfort Care Code Status Assessed: Yes Code Status: Full Code Critical Care: No Time Spent Managing PTS Care (In Minutes): 35
[2024-03-13] MEDS: ZIPRASIDONE MESYLA 20 MG/VIAL IM PRN (19:27)
[2024-03-13] MEDS: METOPROLOL TAR 25 MG TAB PO SCH (19:57)
[2024-03-13 20:45] LABS: Renal Epithelial <5 /HPF (None Seen); Specific Gravity 1.018 (1.005-1.030); Sqamous Epithelial <5 /HPF (None Seen); Urine Bacteria None Seen /HPF (<20); Urine Bilirubin NEGATIVE (Negative); Urine Blood Negative (Negative); Urine Clarity Turbid (Clear); Urine Color Light-Yellow (Yellow); Urine Culture Reflex Order REFLEXED; Urine Glucose NEGATIVE (Negative); Urine Ketones NEGATIVE (Negative); Urine Microscopic Reflex YN ORDER UMIC; Urine Mucus Slight /HPF (None Seen); Urine Nitrite NEGATIVE (Negative); Urine Protein NEGATIVE (Negative); Urine RBC <5 /HPF (None Seen); Urine Urobilinogen Normal (Normal); Urine WBC 20-50 /HPF (<5); Urine Yeast (Budding) Trace /HPF (None Seen); Urine pH 6.5 (5.0-7.0)
[2024-03-13] MEDS: LORazepam 2 MG/ML VIAL IV ONE (21:27)
[2024-03-13] MEDS: METOPROLOL TARTRATE 5 MG/5 ML INJ IV ONE (23:05)
[2024-03-14] MEDS: LORazepam 2 MG/ML VIAL IV PRN (00:30)
[2024-03-14] MEDS: METOPROLOL TARTRATE 5 MG/5 ML INJ IV ONE (02:24)
[2024-03-14] MEDS: HALOPERIDOL LACT 5 MG/ML INJ IV PRN (02:25)
[2024-03-14] MEDS: Magnesium Sulfate 2gm IVPB 2 G/50 ML BAG IV ONE (02:48)
[2024-03-14 06:19] LABS: Anion Gap 5.9 mEq/L (5.0-15.0); Magnesium 2.9 mg/dL (1.6-2.4); Phosphorus 2.9 mg/dL (2.5-4.9); Potassium 3.9 mEq/L (3.5-5.1)
[2024-03-14] MEDS: KCL 20 MEQ/100 mL IVPB 20 MEQ/100 ML BAG IV SCH (06:46)
[2024-03-14] MEDS: NA CHLORIDE 0.9% 50 ML ONE (08:32)
--- NOTE | 2024-03-14 10:21 | P.CNS ---
Date of Consult: 03/14/24 Chief Complaint: altered mental status, UTI History of Present Illness: Patient with PMH of atrial fibrillation, advanced dementia, presented with worsening mental status, found to have UTI, also went into RVR during hospital hospital stay. Allergies Sulfa (Sulfonamide Antibiotics) Allergy (Verified 09/16/21 21:41) Itching/Hives/Rash Home medications list reviewed: Yes Home Medications: RX: Allopurinol 300 mg PO DAILY 09/16/21 RX: Levothyroxine [Synthroid*] 75 mcg PO [id number] 09/16/21 RX: Losartan Potassium 100 mg PO DAILY 09/16/21 RX: Multivitamin with Minerals [Hair, Skin and Nails] 1 each PO DAILY 09/16/21 RX: Nebivolol HCl [Bystolic*] 10 mg PO DAILY 09/16/21 RX: hydroCHLOROthiazide [Hydrochlorothiazide] 25 mg PO DAILY 09/16/21 Pantoprazole [Protonix Tab] 40 mg PO BID #60 tab 09/22/21 RX: Digoxin [Lanoxin*] 0.125 mg PO DAILY #30 tab 09/22/21 - Past Medical/Surgical History Diabetic: No -: CAD -: [place] -: Hypothyroidism -: Hypertension -: Rheumatoid Arthritis -: Afib -: Bilateral Knee Replacements -: Stent x 2 (2012) -: Cholecystectomy Psychosocial/ Personal History: Patient lives at home alone. - Family History Sister Medical History: Cancer - Social History Smoking Status: Unknown if ever smoked Alcohol use: No CD- Drugs: No Caffeine use: Yes Place of Residence: [place] Review of Systems 10-point ROS is otherwise unremarkable Physical Examination Temp Pulse Resp BP Pulse Ox 97.0 F 74 14 146/80 H 95 03/14/24 08:00 03/14/24 08:00 03/14/24 08:00 03/14/24 08:00 03/14/24 08:00 General: Alert, In no apparent distress HEENT: Atraumatic, PERRLA, Mucous membr. moist/pink, EOMI, Sclerae nonicteric Neck: Supple, 2+ carotid pulse no bruit, No LAD, Without JVD or thyroid abnormality Respiratory: Clear to auscultation bilaterally, Normal air movement Cardiovascular: Irregular heart rate/rhythm Gastrointestinal: Normal bowel sounds, No tenderness Musculoskeletal: No tenderness Integumentary: No rashes Neurological: Normal gait, Normal speech, Normal tone, Normal affect Lymphatics: No axilla or inguinal lymphadenopathy - Problems (1) Chronic atrial fibrillation with RVR Current Visit: No Status: Chronic Plan: Increase Lopressor to 50 mg po BID consider starting patient on Eliquis 2.5 mg po BID (2) Hypertension Current Visit: No Status: Chronic Plan: increase lopressor as above and continue to monitor Qualifiers:
--- NOTE | 2024-03-14 12:35 | EKG ---
Test Date: 2024-03-13 Test Time: 19:38:36 Pricing Coordinator: LB MEASUREMENT RESULTS: Intervals: Rate: 119 MD: QRSD: 84 QT: 338 QTc: 475 Paulina: P: MD: QRS: 19 T: -89 INTERPRETIVE STATEMENTS: Atrial fibrillation with rapid ventricular response with premature ventricular or aberrantly conducted complexes Anterior infarct, age undetermined ST & T wave abnormality, consider inferior ischemia or digitalis effect Abnormal ECG Compared to ECG 03/12/2024 13:56:11 Ventricular premature complex(es) now present ST (T wave) deviation now present Possible ischemia now present Myocardial infarct finding still present Electronically Signed On 03-14-24 12:34:26 CDT by Franki Rodriguez
[2024-03-14] MEDS: QUETIAPINE 25 MG TAB PO SCH (13:15)
[2024-03-14] MEDS: VALPROATE SODIUM INJ 500 MG in NA CHLORIDE 0.9% 100 ML IV SCH (13:16)
--- NOTE | 2024-03-14 13:49 | ECHO ---
HEIGHT: 5 ft 5 in WEIGHT: 155 lb 6.4 oz DATE OF STUDY: 03/14/[address]: Prince Kim Perez MD 2-DIMENSIONAL: YES M.MODE: YES DOPPLER: YES COLOR FLOW: YES TDS: PORTABLE: YES DEFINITY: BUBBLE STUDY: DIAGNOSIS: CONGESTIVE HEART FAILURE EVALUATION CARDIAC HISTORY: CATHERIZATION: NO SURGERY: NO PROSTHETIC VALVE: NO PACEMAKER: NO MEASUREMENTS (cm) DIASTOLIC (NORMALS) SYSTOLIC (NORMALS) IVSd 1.0 (0.6-1.2) LA Diam 3.3 (1.9-4.0) LVEF 60% LVIDd 3.9 (3.5-5.7) LVIDs 2.9 (2.0-3.5) %FS 27% LVPWd 1.0 (0.6-1.2) Ao Diam 2.4 (2.0-3.7) 2 DIMENSIONAL ASSESSMENT: RIGHT ATRIUM: NORMAL LEFT ATRIUM: SEVERELY DILATED RIGHT VENTRICLE: NORMAL LEFT VENTRICLE: NORMAL TRICUSPID VALVE: TRACE TRICUSPID REGURGITATION MITRAL VALVE: NORMAL PULMONIC VALVE: NORMAL AORTIC VALVE: NORMAL PERICARDIAL EFFUSION: NONE AORTIC ROOT: NORMAL LEFT VENTRICULAR WALL MOTION: NORMAL DOPPLER/COLOR FLOW: GRADE III DIASTOLIC DYSFUNCTION COMMENTS: 1. SEVERELY DILATED LEFT ATRIUM 2. NORMAL LEFT VENTRICULAR SYSTOLIC FUNCTION, EJECTION FRACTION 60%, NORMAL WALL MOTION 3. GRADE III DIASTOLIC DYSFUNCTION 4. NORMAL FILLING PRESSURE TECHNOLOGIST: KEVEN BARRAGAN
[2024-03-14] MEDS: MIRTAZAPINE 15 MG TAB PO SCH (20:41)
[2024-03-14] MEDS: METOPROLOL TAR 50 MG TAB PO SCH (20:41)
[2024-03-14] MEDS: ENSURE ENLIVE 237 ML CAN PO SCH (20:43)
[2024-03-14] MEDS: WATER FOR INJ,STERILE 10 ML IM PRN (23:04)
[2024-03-15 05:48] LABS: Absolute Eosinophils 0.2 K/uL (0-0.5); Absolute Monocytes 0.5 K/uL (0.1-1.3); Absolute Neutrophil 6.8 K/uL (1.8-8.0); Basophils % 0.5 % (0-1.3); Eosinophils % 2.1 % (0-4.4); Hematocrit 46.9 % (36.0-45.0); Hemoglobin 15.6 g/dL (12.0-15.0); Lymphocytes % 11.7 % (15.3-44.8); MCH 32.8 pg (27.0-35.0); MCHC 33.3 g/dL (32.0-36.0); MCV 98.5 fL (80-100); MPV 7.9 fL (7.6-11.3); Neutrophils % 79.7 % (41.7-73.7); Platelets 158 thou/uL (152-406); RBC Red Blood Cell Count 4.76 M/uL (3.86-4.86); Red Cell Distribution Width 13.6 % (12.1-15.2)
[2024-03-15 06:52] LABS: Anion Gap 10.1 mEq/L (5.0-15.0); Magnesium 2.4 mg/dL (1.6-2.4); Phosphorus 3.5 mg/dL (2.5-4.9); Potassium 4.1 mEq/L (3.5-5.1)
[2024-03-15] MEDS: ENOXAPARIN 60 MG/0.6 ML SQ SCH (08:39)
[2024-03-15] MEDS: Mupirocin NASAL 2 APPL/1 GM TUBE NAS SCH (09:00)
--- NOTE | 2024-03-15 10:03 | P.PN ---
Subjective Date of Service: 03/15/24 Chief Complaint: altered mental status, UTI Pt had episode of psychosis overnight, had to have ativan, geodon, haldol. Gentle restraints until calmed to prevent pt harming herself/others. This am she is soundly asleep, snoring softly. Afib with RVR and hypertension at 180s over 110s. Pt has been spitting out medications. Suggested Eliquis for a fib anticoag. Pt is not able to take po confidently. Will increase lovenox to therapeutic for now. Will give lopressor IV q6h until pt more alert. Pt was given hydralazine 10mg this am for bp 184/118. Repeat 106/60. Review of Systems is unable to be obtained Physical Examination - Vital Signs Temperature: 97 F Blood Pressure: 101/65 Pulse: 112 Respirations: 19 Pulse Ox (%): 100 - Physical Exam General: Other (sleeping in no distress) HEENT: Atraumatic, Normocephalic Neck: Supple Respiratory: Normal air movement Cardiovascular: Irregular heart rate/rhythm Capillary refill: <2 Seconds Gastrointestinal: Soft and benign Integumentary: No rashes Neurological: Other (as noted), Dementia Lymphatics: No axilla or inguinal lymphadenopathy External genitalia: Deferred Rectal: Deferred - Studies Microbiology Data (last 24 hrs): 03/12/24 17:31 Clean Catch Urine [place] Count - Final BETWEEN 10,000 & 100,000 CFU/ML 03/12/24 17:31 Clean Catch Urine - Final MIXED HARSHA. Assessment And Plan - Plan - Problems (Diagnosis) (1) Acute encephalopathy Current Visit: Yes Status: Acute (2) Atrial fibrillation Current Visit: Yes Status: Acute (3) UTI (urinary tract infection) Current Visit: Yes Status: Acute (4) CAD (coronary artery disease) Current Visit: No Status: Chronic Qualifiers: (5) Hypertension Current Visit: No Status: Chronic Qualifiers: (6) Hypothyroidism Current Visit: No Status: Chronic Qualifiers: - Plan Assessment This is a 83-year-old female currently living in a memory care unit due to chronic history of dementia. She also has a history of atrial fibrilla tion and hypothyroidism. She is presenting to the ER for evaluation of altered mental status. She has a negative CT head. Additional workup is concerning for UTI. Urine appearance was turbid. She received a dose of ceftriaxone in the ER. Urinary tract infection Acute encephalopathy Atrial fibrillation Hypothyroidism Hypertension Dementia Plan: Will admit inpatient with telemetry Continue patient on ceftriaxone for suspected UTI. 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
[2024-03-15] MEDS ORDERED: AMIODARONE HCL 900 MG in Dextrose 5%-Water 482 ML IV SCH (11:00)
[2024-03-15] MEDS: AMIODARONE HCL 900 MG in Dextrose 5%-Water 482 ML IV ONE (11:18)
[2024-03-15] MEDS: AMIODARONE HCL 150 MG in D5W 100 ML IV STA (11:18)
--- NOTE | 2024-03-15 12:48 | P.PN ---
Subjective Date of Service: 03/15/24 Chief Complaint: altered mental status, UTI Subjective: No new changes, No C/O voiced, Tolerating diet, Ambulating, Improving Review of Systems 10-point ROS is otherwise unremarkable Physical Examination - Vital Signs Temperature: 97 F Blood Pressure: 101/65 Pulse: 112 Respirations: 19 Pulse Ox (%): 100 - Physical Exam General: Alert, In no apparent distress HEENT: Atraumatic, PERRLA, EOMI Neck: Supple, JVD not distended Respiratory: Clear to auscultation bilaterally, Normal air movement Cardiovascular: Regular rate/rhythm, Normal S1 S2 Gastrointestinal: Normal bowel sounds, No tenderness Musculoskeletal: No tenderness Integumentary: No rashes Neurological: Normal speech, Normal tone, Normal affect Lymphatics: No axilla or inguinal lymphadenopathy - Studies Microbiology Data (last 24 hrs): 03/12/24 17:31 Clean Catch Urine [place] Count - Final BETWEEN 10,000 & 100,000 CFU/ML 03/12/24 17:31 Clean Catch Urine - Final MIXED HARSHA. Medications List Reviewed: Yes Assessment And Plan - Current Problems (Diagnosis) (1) Chronic atrial fibrillation with RVR Current Visit: No Status: Chronic Plan: Amiodarone 150 mg IV x1 then continue drip continue Lopressor to 50 mg po BID continue therapeutic lovenox consider starting patient on Eliquis 2.5 mg po BID (2) Hypertension Current Visit: No Status: Chronic Plan: Continue Lopressor. Qualifiers:
[2024-03-15] MEDS: QUETIAPINE 25 MG TAB PO SCH (15:10)
[2024-03-15] MEDS: DIVALPROEX DR 250 MG TAB PO SCH (21:00)
[2024-03-16 05:17] LABS: Absolute Basophils 0.1 K/uL (0-0.5); Absolute Eosinophils 0.1 K/uL (0-0.5); Absolute Monocytes 0.6 K/uL (0.1-1.3); Absolute Neutrophil 8.8 K/uL (1.8-8.0); Basophils % 0.5 % (0-1.3); Eosinophils % 1.2 % (0-4.4); Hematocrit 44.8 % (36.0-45.0); Hemoglobin 15.4 g/dL (12.0-15.0); Lymphocytes % 9.4 % (15.3-44.8); MCH 33.5 pg (27.0-35.0); MCHC 34.3 g/dL (32.0-36.0); MCV 97.9 fL (80-100); MPV 7.5 fL (7.6-11.3); Monocytes % 5.5 % (3.3-12.3); Neutrophils % 83.4 % (41.7-73.7); Platelets 179 thou/uL (152-406); RBC Red Blood Cell Count 4.58 M/uL (3.86-4.86); Red Cell Distribution Width 13.5 % (12.1-15.2)
[2024-03-16 05:40] LABS: Anion Gap 7.9 mEq/L (5.0-15.0); Magnesium 2.3 mg/dL (1.6-2.4); Phosphorus 3.9 mg/dL (2.5-4.9); Potassium 3.9 mEq/L (3.5-5.1)
[2024-03-16] MEDS: KCL 20 MEQ/100 mL IVPB 20 MEQ/100 ML BAG IV SCH (08:27)
[2024-03-16] MEDS: AMIODARONE HCL 900 MG in Dextrose 5%-Water 482 ML IV SCH (10:42)
[2024-03-16] MEDS: AMIODARONE HCL 200 MG TAB PO ONE (11:30)
--- NOTE | 2024-03-16 13:00 | P.PN ---
Subjective Date of Service: 03/16/24 Chief Complaint: altered mental status, UTI Subjective: No new changes, No C/O voiced, Tolerating diet, Ambulating, Improving Review of Systems 10-point ROS is otherwise unremarkable Physical Examination - Vital Signs Temperature: 97.4 F Blood Pressure: 108/61 Pulse: 81 Respirations: 15 Pulse Ox (%): 100 - Physical Exam General: Alert, In no apparent distress HEENT: Atraumatic, PERRLA, EOMI Neck: Supple, JVD not distended Respiratory: Clear to auscultation bilaterally, Normal air movement Cardiovascular: Regular rate/rhythm, Normal S1 S2 Gastrointestinal: Normal bowel sounds, No tenderness Musculoskeletal: No tenderness Integumentary: No rashes Neurological: Normal speech, Normal tone, Normal affect Lymphatics: No axilla or inguinal lymphadenopathy - Studies Medications List Reviewed: Yes Assessment And Plan - Current Problems (Diagnosis) (1) Chronic atrial fibrillation with RVR Current Visit: No Status: Chronic Plan: Amiodarone 200 mg po BID continue Lopressor to 50 mg po BID Eliquis 2.5 mg po BID (2) Hypertension Current Visit: No Status: Chronic Plan: Continue Lopressor. Qualifiers:
[2024-03-16] MEDS: METOPROLOL TARTRATE 5 MG/5 ML INJ IV PRN (20:19)
[2024-03-16] MEDS: clonazePAM 0.5 MG TAB PO SCH (21:16)
[2024-03-16] MEDS: QUETIAPINE 25 MG TAB PO SCH (21:16)
[2024-03-16] MEDS: APIXABAN 2.5 MG TABLET PO SCH (21:17)
[2024-03-16] MEDS: AMIODARONE HCL 200 MG TAB PO SCH (21:17)
[2024-03-17] MEDS: METOPROLOL TARTRATE 5 MG/5 ML INJ IV STA ×2 (00:27→15:29)
[2024-03-17 05:09] LABS: Absolute Eosinophils 0.1 K/uL (0-0.5); Absolute Lymphocytes (CBC) 0.8 K/uL (0.7-4.9); Absolute Monocytes 0.5 K/uL (0.1-1.3); Absolute Neutrophil 7.4 K/uL (1.8-8.0); Basophils % 0.5 % (0-1.3); Eosinophils % 1.4 % (0-4.4); Hematocrit 44.4 % (36.0-45.0); Hemoglobin 14.9 g/dL (12.0-15.0); Lymphocytes % 8.9 % (15.3-44.8); MCH 33.4 pg (27.0-35.0); MCHC 33.7 g/dL (32.0-36.0); MCV 99.2 fL (80-100); MPV 8.3 fL (7.6-11.3); Monocytes % 6.1 % (3.3-12.3); Neutrophils % 83.1 % (41.7-73.7); Platelets 190 thou/uL (152-406); RBC Red Blood Cell Count 4.47 M/uL (3.86-4.86); Red Cell Distribution Width 13.8 % (12.1-15.2)
[2024-03-17 06:21] LABS: Anion Gap 8.9 mEq/L (5.0-15.0); Magnesium 2.2 mg/dL (1.6-2.4); Phosphorus 3.3 mg/dL (2.5-4.9); Potassium 3.9 mEq/L (3.5-5.1)
[2024-03-17] MEDS: KCL 20 MEQ/100 mL IVPB 20 MEQ/100 ML BAG IV ONE (06:36)
[2024-03-17] MEDS: DIVALPROEX NA 125 MG CAP PO SCH (08:45)
--- NOTE | 2024-03-17 09:58 | P.PN ---
Subjective Date of Service: 03/17/24 Chief Complaint: altered mental status, UTI Subjective: No new changes Review of Systems 10-point ROS is otherwise unremarkable Physical Examination - Vital Signs Temperature: 97.5 F Blood Pressure: 150/85 Pulse: 114 Respirations: 16 Pulse Ox (%): 100 - Physical Exam General: Alert, In no apparent distress HEENT: Atraumatic, PERRLA, EOMI Neck: Supple, JVD not distended Respiratory: Clear to auscultation bilaterally, Normal air movement Cardiovascular: Irregular heart rate/rhythm Gastrointestinal: Normal bowel sounds, No tenderness Musculoskeletal: No tenderness Integumentary: No rashes Neurological: Normal speech, Normal tone, Normal affect Lymphatics: No axilla or inguinal lymphadenopathy - Studies Medications List Reviewed: Yes Assessment And Plan - Current Problems (Diagnosis) (1) Chronic atrial fibrillation with RVR Current Visit: No Status: Chronic Plan: Amiodarone 200 mg po BID Increase Lopressor to 75 mg po BID Eliquis 2.5 mg po BID (2) Hypertension Current Visit: No Status: Chronic Plan: Continue Lopressor. Qualifiers:
--- NOTE | 2024-03-17 10:48 | P.PN ---
Date of Service: 03/14/24 Subjective Patient with no new changes. Clinical symptoms are stable. Patient denies any new complaints. Patient awake Physical Examination - Vital Signs reviewed - Physical Exam General: Alert, In no apparent distress, Oriented x3 Respiratory: Clear to auscultation bilaterally, Normal air movement Cardiovascular: Regular rate/rhythm, Normal S1 S2, No murmurs Gastrointestinal: Normal bowel sounds, Soft and benign, Non-distended, No tenderness Musculoskeletal: No clubbing, No swelling, No tenderness Neurological: Sensation intact, Cranial nerves 3-12 intact Assessment & Plan - Problems (Diagnosis) (1) Dementia with behavioral disturbances Current Visit: Yes Status: Acute (2) ANGIE (acute kidney injury) Current Visit: No Status: Acute (3) CAD (coronary artery disease) Current Visit: No Status: Chronic (4) Chronic atrial fibrillation with RVR Current Visit: No Status: Chronic (5) Hypertension Current Visit: No Status: Chronic (6) Hypothyroidism Current Visit: No Status: Chronic - Plan Plan of care as mentioned below: 1. Heplock IV 2. Panculture-negative; DC abx 3. DC abx 4. Imaging studies reviewed 5. Monitor electrolytes 6. Check thyroid studies 7. Review medications 8. Neurochecks every 4 hours 9. GI DVT prophylaxis Discharge Plan: Home Plan to discharge in: Greater than 2 days - Code Status/Comfort Care Code Status Assessed: Yes Code Status: Full Code Critical Care: No Time Spent Managing PTS Care (In Minutes): 25
[2024-03-17] MEDS ORDERED: clonazePAM 0.5 MG TAB PO PRN (10:49)
--- NOTE | 2024-03-17 10:53 | P.PN ---
Date of Service: 03/15/24 Subjective Patient with no new changes; more relaxed Physical Examination - Vital Signs reviewed - Physical Exam General: Alert, In no apparent distress, Oriented x3 Respiratory: Clear to auscultation bilaterally Cardiovascular: Regular rate/rhythm, Normal S1 S2, No murmurs Gastrointestinal: Normal bowel sounds, Soft and benign, Non-distended, No tenderness Musculoskeletal: No clubbing, No swelling, No tenderness Neurological: No focal deficits Assessment & Plan - Problems (Diagnosis) (1) Dementia with behavioral disturbances Current Visit: Yes Status: Acute (2) ANGIE (acute kidney injury) Current Visit: No Status: Acute (3) CAD (coronary artery disease) Current Visit: No Status: Chronic (4) Chronic atrial fibrillation with RVR Current Visit: No Status: Chronic (5) Hypertension Current Visit: No Status: Chronic (6) Hypothyroidism Current Visit: No Status: Chronic - Plan Plan of care as mentioned below: 1. Heplock IV 2. Panculture-negative; DC abx 3. Imaging studies reviewed 4. Psych medications adjusted; started Seroquel and Remeron along with Depakote for behavioral modification. 5. Neurochecks every 4 hours 6. GI DVT prophylaxis Discharge Plan: Home Plan to discharge in: Greater than 2 days - Code Status/Comfort Care Code Status Assessed: Yes Code Status: Full Code Critical Care: No Time Spent Managing PTS Care (In Minutes): 25
--- NOTE | 2024-03-17 10:54 | P.PN ---
Date of Service: 03/16/24 Subjective Patient less agitated. Seems more relaxed. Sleeping more so than anticipated so we will decrease psychiatric dosing of medications. Physical Examination - Vital Signs reviewed - Physical Exam General: Alert, In no apparent distress, Oriented x3 Respiratory: Clear to auscultation bilaterally Cardiovascular: Regular rate/rhythm, Normal S1 S2, No murmurs Gastrointestinal: Normal bowel sounds, Soft and benign, Non-distended, No tenderness Musculoskeletal: No clubbing, No swelling, No tenderness Neurological: No focal deficits Assessment & Plan - Problems (Diagnosis) (1) Dementia with behavioral disturbances Current Visit: Yes Status: Acute (2) ANGIE (acute kidney injury) Current Visit: No Status: Acute (3) CAD (coronary artery disease) Current Visit: No Status: Chronic (4) Chronic atrial fibrillation with RVR Current Visit: No Status: Chronic (5) Hypertension Current Visit: No Status: Chronic (6) Hypothyroidism Current Visit: No Status: Chronic - Plan Continue with plan of care as mentioned below: 1. Heplock IV 2. Panculture-negative; DC abx 3. Imaging studies reviewed 4. Psych medications adjusted; started Seroquel and Remeron along with Depakote for behavioral modification. Started Klonopin but we may need to change to as needed if she still sleeping quite a bit. 5. Neurochecks every 4 hours; psych eval 6. GI DVT prophylaxis Discharge Plan: Home Plan to discharge in: Greater than 2 days - Code Status/Comfort Care Code Status Assessed: Yes Code Status: Full Code Critical Care: No Time Spent Managing PTS Care (In Minutes): 25
[2024-03-17] MEDS: NA CHLORIDE 0.9% 1,000 ML IV SCH (11:20)
[2024-03-17] MEDS: METOPROLOL TAR 25 MG TAB PO SCH (20:35)
[2024-03-17] MEDS: QUETIAPINE 25 MG TAB PO SCH (20:35)
[2024-03-17 21:23] VITALS: BMI 25.1
[2024-03-18 07:41] LABS: Absolute Eosinophils 0.1 K/uL (0-0.5); Absolute Lymphocytes (CBC) 0.9 K/uL (0.7-4.9); Absolute Monocytes 0.7 K/uL (0.1-1.3); Absolute Neutrophil 6.8 K/uL (1.8-8.0); Basophils % 0.4 % (0-1.3); Eosinophils % 1.2 % (0-4.4); Hematocrit 45.6 % (36.0-45.0); Hemoglobin 15.2 g/dL (12.0-15.0); Lymphocytes % 10.3 % (15.3-44.8); MCH 33.1 pg (27.0-35.0); MCHC 33.3 g/dL (32.0-36.0); MCV 99.3 fL (80-100); MPV 7.9 fL (7.6-11.3); Monocytes % 7.8 % (3.3-12.3); Neutrophils % 80.3 % (41.7-73.7); Platelets 175 thou/uL (152-406); RBC Red Blood Cell Count 4.59 M/uL (3.86-4.86)
[2024-03-18 08:12] LABS: Anion Gap 8.7 mEq/L (5.0-15.0); Magnesium 2.1 mg/dL (1.6-2.4); Phosphorus 2.4 mg/dL (2.5-4.9); Potassium 3.7 mEq/L (3.5-5.1)
[2024-03-18 09:16] LABS: Thyroid Stimulating Hormone 6.94 uIU/mL (0.358-3.740)
[2024-03-18] MEDS: POTASSIUM PHOS IN 0.9 % NACL 15 MMOL/250 ML BAG IV ONE (09:18)
--- NOTE | 2024-03-18 12:07 | RAD REPORT ---
EXAM: CT Head Brain Wo Cont HISTORY: AMS COMPARISON: 03/12/2024 TECHNIQUE: Multiple contiguous axial images were obtained for a CT of the brain without contrast. Sag ittal and coronal reformats were performed. One or more of the following dose reduction techniques were used: Automated exposure control, adjus tment of the mA and kV according to patient size, and iterative reconstruction. Unless otherwise specified, incidental findings do not require dedicated imaging follow-up. FINDINGS: No evidence of hydrocephalus, intracranial hemorrhage, or extra-axial fluid collection. Mild brain atrophy with mild periventricular and deep white matter chronic microvascular ischemic ch anges present. The calvarium is intact. The visualized paranasal sinuses and mastoid air cells are essentially clear . IMPRESSION: No evidence of acute intracranial abnormality.
[2024-03-18 14:30] LABS: SARS-CoV-2 Antigen CONTROL BLUE LINE VIS/BG OK; SARS-CoV-2 Antigen Rapid Res Negative (Negative)
[2024-03-18] MEDS: LEVOTHYROXINE SODIUM 100 MCG VIAL IV ONE ×2 (14:47→14:53)
[2024-03-18 16:52] VITALS: O2SAT 94
[2024-03-18 16:53] VITALS: BP 111/93; TEMP 97.6
[2024-03-18] MEDS ORDERED: QUETIAPINE 25 MG TAB PO SCH (21:00)
[2024-03-18] MEDS ORDERED: DIVALPROEX DR 250 MG TAB PO SCH (21:00)
[2024-03-19] MEDS ORDERED: LEVOTHYROXINE SODIUM 100 MCG VIAL IV ONE ×2 (14:07)
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
== END 2024-03-18 16:45 | DRG 689 ==
LOC: ER 12:37 → ERHOLD 18:27 → 2ND 18:52 → 3RD-ICU 19:59
PROVIDERS: ADMIT Internal Medicine; ATTEND Hospitalist
PROC: 02HV33Z Insertion of Infusion Device into Superior Vena Cava, Percutaneous Approach (ICD-10-PCS; principal; 2024-03-13)
DX: N39.0 Urinary tract infection, site not specified (principal); G92.9 Unspecified toxic encephalopathy; I48.19 Other persistent atrial fibrillation; F03.911 Unspecified dementia, unspecified severity, with agitation; N17.9 Acute kidney failure, unspecified; I10 Essential (primary) hypertension; E03.9 Hypothyroidism, unspecified; M06.9 Rheumatoid arthritis, unspecified; I25.10 Atherosclerotic heart disease of native coronary artery without angina pectoris; I25.2 Old myocardial infarction; Z78.1 Physical restraint status; Z88.2 Allergy status to sulfonamides; Z11.52 Encounter for screening for COVID-19; Z90.49 Acquired absence of other specified parts of digestive tract; Z79.01 Long term (current) use of anticoagulants; Z79.890 Hormone replacement therapy; Z79.899 Other long term (current) drug therapy; Z96.653 Presence of artificial knee joint, bilateral; Z60.2 Problems related to living alone
CPT/HCPCS: 36415; 70450; 71045; 80048; 80076; 80143; 80179; 80307; 81001; 82077; 82140; 82533; 83690; 83735; 83880; 84100; 84145; 84439; 84443; 84484; 85025; 85610; 85730; 87086; 87088; 87811; 93005; 93306; 99285; J0282; J0360; J0696; J1630; J1650; J3475; J3480; J3486; J7030; J7060